=== PATIENT | male | born 1945 | race Caucasian/White ===

== ENCOUNTER 2021-01-06 12:55 | Emergency (ER) | payer MEDICARE, MEDICAID ==
[2021-01-06] MEDS ORDERED: Sodium Chloride 0.9% 10 ML Syringe FLUSH PRN (13:10)
--- NOTE | 2021-01-06 13:17 | EDM.PDOC ---
ED HPI GENERAL MEDICAL PROBLEM - General Chief Complaint: Lower Extremity Injury/Pain Stated Complaint: LT HIP INJURY SENT FROM RADIOLOGY Time Seen by Provider: 01/06/21 13:01 Source of Information: Reports: Patient, [facility] Records ([facility] notes/staff present in room) History Limitations: Reports: No Limitations - History of Present Illness INITIAL COMMENTS - FREE TEXT/NARRATIVE: Patient is a 75 year who presents to the ED today for left hip injury. The patient resides at [facility] in [place], [place]. He apparently was trying to self transfer on saturday evening from his wheelchair to his bed and fell to the ground. The staff present in the room states that he normally has mobility issues and they do have to utilize lifts to help move him. He has been complaining of left hip pain since then. The staff states that he has been well otherwise, no fevers/chills, cough/SOB, nausea/vomiting/diarrhea. The patient did have outpatient x-rays ordered that demonstrated a left proximal femur fracture, so he was sent to the ER for further management. Left Hip Pain Score (Numeric/FACES): 9 - Related Data Allergies Allergy/AdvReac Type Severity Reaction Status Date / Time No Known Allergies Allergy Verified 01/06/21 13:20 Home Meds: Home Meds Acetaminophen 650 mg PO Q4HR PRN 01/06/21 [History] Alendronate Sodium 70 mg PO WEEKLY 01/06/21 [History] Celecoxib [CeleBREX] 200 mg PO DAILY 01/06/21 [History] Cholecalciferol (Vitamin D3) [Vitamin D3] 2,000 unit PO DAILY 01/06/21 [History] Deutetrabenazine [Austedo] 9 mg PO DAILY 01/06/21 [History] Docusate Sodium [Colace] 100 mg PO DAILY 01/06/21 [History] Donepezil HCl [Aricept] 10 mg PO DAILY 01/06/21 [History] FLUoxetine [PROzac] 10 mg PO DAILY 01/06/21 [History] Folic Acid 1 mg PO DAILY 01/06/21 [History] Furosemide 30 mg PO DAILY 01/06/21 [History] Hydroxyurea [Hydrea] 500 mg PO ASDIRECTED 01/06/21 [History] Mirtazapine 15 mg PO BEDTIME 01/06/21 [History] Montelukast [Singulair] 10 mg PO DAILY 01/06/21 [History] Ondansetron [Zofran] 4 mg PO Q6H PRN 01/06/21 [History] Psyllium Husk [Metamucil] 1 scoop PO ASDIRECTED 01/06/21 [History] Tamsulosin HCl [Flomax] 0.8 mg PO DAILY 01/06/21 [History] Warfarin Sodium [Jantoven] 2.5 mg PO ASDIRECTED 01/06/21 [History] Warfarin Sodium [Jantoven] 5 mg PO ASDIRECTED 01/06/21 [History] amLODIPine [Norvasc] 10 mg PO DAILY 01/06/21 [History] atorvaSTATin [Lipitor] 40 mg PO DAILY 01/06/21 [History] lisinopriL [Lisinopril] 2.5 mg PO DAILY 01/06/21 [History] traZODone HCl [Trazodone HCl] 150 mg PO BEDTIME 01/06/21 [History] Review of Systems - Review of Systems Review Of Systems: Comprehensive ROS is negative, except as noted in HPI. ED EXAM, GENERAL - Physical Exam Exam: See Below Exam Limited By: No Limitations General Appearance: Alert, WD/WN, No Apparent Distress Throat/Mouth: Normal Inspection, Normal Lips, Normal Teeth, Normal Gums, Normal Oropharynx, Normal Voice, No Airway Compromise Respiratory/Chest: No Respiratory Distress, Lungs Clear, Normal Breath Sounds, No Accessory Muscle Use, Chest Non-Tender Cardiovascular: Normal Peripheral Pulses, Regular Rate, Rhythm, No Edema Peripheral Pulses: 2+: Radial (L), Radial (R) GI/Abdominal: Normal Bowel Sounds, Soft, Non-Tender, No Distention, No Mass Extremities: Normal Inspection, Normal Capillary Refill Neurological: Alert, Oriented, Normal Cognition, No Motor/Sensory Deficits Psychiatric: Normal Affect, Normal Mood Skin Exam: Warm, Dry, Intact, Normal Color, No Rash #1 Interpretation EKG Date: 01/06/21 Time: 13:53 Rhythm: NSR Rate (Beats/Min): 63 [place]: LAD-Left [place] Deviation (-94 ) P-Wave: Present QRS: RBBB ST-T: Normal QT: Normal Comparison: NA - No Prior EKG EKG Interpretation Comments: No obvious ischemia or acute ST changes noted, reviewed by myself and Dr. Chilel. He did appreciate diffuse early repolarization pattern. Course - Vital Signs Last Recorded V/S: Last Vital Signs Temp 97.8 F 01/06/21 13:01 Pulse 97 01/06/21 13:01 Resp 18 01/06/21 13:01 BP 155/129 H 01/06/21 13:01 Pulse Ox 97 01/06/21 13:01 - Orders/Labs/Meds Orders: Active Orders 24 hr Category Date Time Status EKG Documentation Completion [RC] STAT Care 01/06/21 13:09 Active Insert Daniels Catheter [Insert Urinary Catheter] [OM.PC] Care 01/06/21 16:30 Ordered Stat Peripheral IV Care [RC] . DIRECTED Care 01/06/21 13:10 Active Urinary Catheter Assessment [RC] ASDIRECTED Care 01/06/21 16:31 Active CULTURE URINE [RM] Routine Lab 01/06/21 16:56 Ordered Sodium Chloride 0.9% [Saline Flush] Med 01/06/21 13:10 Active 10 ml FLUSH ASDIRECTED PRN cefTRIAXone [Rocephin] 2 gm Med 01/06/21 16:56 Ordered Sodium Chloride 0.9% [Normal Saline] 100 ml IV ONETIME Peripheral IV Insertion Adult [OM.PC] Routine Oth 01/06/21 13:09 Ordered Medication Orders Ceftriaxone Sodium 2 gm/ (Sodium Chloride) 100 mls @ 200 mls/hr IV ONETIME ONE Stop: 01/06/21 17:25 Sodium Chloride (Saline Flush) 10 ml FLUSH ASDIRECTED PRN PRN Reason: Keep Vein Open Last Admin: 01/06/21 15:00 Dose: 10 ml Documented by: BRIJESH Labs: Laboratory Tests 01/06/21 01/06/21 01/06/21 Range/Units 13:30 13:30 13:30 WBC 18.11 H (4.23-9.07) K/mm3 RBC 5.03 (4.63-6.08) M/mm3 Hgb 13.6 L (13.7-17.5) gm/dl Hct 46.2 (40.1-51.0) % MCV 91.8 (79.0-92.2) fl MCH 27.0 (25.7-32.2) pg MCHC 29.4 L (32.2-35.5) g/dl RDW Std Deviation 67.2 H (35.1-43.9) fL Plt Count 133 L (163-337) K/mm3 MPV 10.3 (9.4-12.3) fl Neut % (Auto) 85.0 H (34.0-67.9) % Lymph % (Auto) 4.7 L (21.8-53.1) % [place] % (Auto) 6.4 (5.3-12.2) % Eos % (Auto) 3.3 (0.8-7.0) Baso % (Auto) 0.2 (0.1-1.2) % Neut # (Auto) 15.38 H (1.78-5.38) K/mm3 Lymph # (Auto) 0.86 L (1.32-3.57) K/mm3 [place] # (Auto) 1.16 H (0.30-0.82) K/mm3 Eos # (Auto) 0.60 H (0.04-0.54) K/mm3 Baso # (Auto) 0.03 (0.01-0.08) K/mm3 Manual Slide Review Abnormal smear PT 16.0 H (9.7-12.0) SECONDS INR 1.51 APTT 33.9 H (21.7-31.4) SECONDS Sodium 143 (136-145) mEq/L Potassium 4.9 (3.5-5.1) mEq/L Chloride 106 (98-107) mEq/L Carbon Dioxide 27 (21-32) mEq/L Anion Gap 14.9 (5-15) BUN 25 H (7-18) mg/dL Creatinine 1.2 (0.7-1.3) mg/dL Est Cr Clr Drug Dosing TNP Estimated GFR (MDRD) 59 (>60) mL/min BUN/Creatinine Ratio 20.8 H (14-18) Glucose 169 H (83-115) mg/dL Calcium 9.3 (8.5-10.1) mg/dL Total Bilirubin 0.7 (0.2-1.0) mg/dL AST 23 (15-37) U/L ALT 29 (16-63) U/L Alkaline Phosphatase 91 (46-116) U/L Total Protein 7.2 (6.4-8.2) g/dl Albumin 3.0 L (3.4-5.0) g/dl Globulin 4.2 gm/dL Albumin/Globulin Ratio 0.7 L (1-2) Urine Color (Yellow) Urine Appearance (Clear) Urine pH (5.0-8.0) Ur Specific [place] (1.005-1.030) Urine Protein (Negative) Urine Glucose (UA) (Negative) Urine Ketones (Negative) Urine Occult Blood (Negative) Urine Nitrite (Negative) Urine Bilirubin (Negative) Urine Urobilinogen (0.2-1.0) Ur Leukocyte Esterase (Negative) Urine RBC (0-5) /hpf Urine WBC (0-5) /hpf Urine WBC Clumps (NOT SEEN) /hpf Ur Squamous Epith Cells (0-5) /hpf Urine Bacteria (FEW) /hpf Urine Mucus (FEW) /hpf Influenza Type A RNA (NEGATIVE) Influenza Type B RNA (NEGATIVE) SARS-CoV-2 RNA (LETICIA) (NEGATIVE) 01/06/21 01/06/21 Range/Units 14:23 16:23 WBC (4.23-9.07) K/mm3 RBC (4.63-6.08) M/mm3 Hgb (13.7-17.5) gm/dl Hct (40.1-51.0) % MCV (79.0-92.2) fl MCH (25.7-32.2) pg MCHC (32.2-35.5) g/dl RDW Std Deviation (35.1-43.9) fL Plt Count (163-337) K/mm3 MPV (9.4-12.3) fl Neut % (Auto) (34.0-67.9) % Lymph % (Auto) (21.8-53.1) % [place] % (Auto) (5.3-12.2) % Eos % (Auto) (0.8-7.0) Baso % (Auto) (0.1-1.2) % Neut # (Auto) (1.78-5.38) K/mm3 Lymph # (Auto) (1.32-3.57) K/mm3 [place] # (Auto) (0.30-0.82) K/mm3 Eos # (Auto) (0.04-0.54) K/mm3 Baso # (Auto) (0.01-0.08) K/mm3 Manual Slide Review PT (9.7-12.0) SECONDS INR APTT (21.7-31.4) SECONDS Sodium (136-145) mEq/L Potassium (3.5-5.1) mEq/L Chloride (98-107) mEq/L Carbon Dioxide (21-32) mEq/L Anion Gap (5-15) BUN (7-18) mg/dL Creatinine (0.7-1.3) mg/dL Est Cr Clr Drug Dosing Estimated GFR (MDRD) (>60) mL/min BUN/Creatinine Ratio (14-18) Glucose (83-115) mg/dL Calcium (8.5-10.1) mg/dL Total Bilirubin (0.2-1.0) mg/dL AST (15-37) U/L ALT (16-63) U/L Alkaline Phosphatase (46-116) U/L Total Protein (6.4-8.2) g/dl Albumin (3.4-5.0) g/dl Globulin gm/dL Albumin/Globulin Ratio (1-2) Urine Color Yellow (Yellow) Urine Appearance Slt cloudy H (Clear) Urine pH 6.0 (5.0-8.0) Ur Specific [place] 1.020 (1.005-1.030) Urine Protein 1+ H (Negative) Urine Glucose (UA) Negative (Negative) Urine Ketones Negative (Negative) Urine Occult Blood 3+ H (Negative) Urine Nitrite Negative (Negative) Urine Bilirubin Negative (Negative) Urine Urobilinogen 0.2 (0.2-1.0) Ur Leukocyte Esterase 2+ H (Negative) Urine RBC 50-75 H (0-5) /hpf Urine WBC 50-75 H (0-5) /hpf Urine WBC Clumps Occasional (NOT SEEN) /hpf Ur Squamous Epith Cells 0-5 (0-5) /hpf Urine Bacteria Many H (FEW) /hpf Urine Mucus Few (FEW) /hpf Influenza Type A RNA Negative (NEGATIVE) Influenza Type B RNA Negative (NEGATIVE) SARS-CoV-2 RNA (LETICIA) Negative (NEGATIVE) Meds: Medications Generic Name Dose Route Start Last Admin Trade Name Freq PRN Reason Stop Dose Admin Ceftriaxone Sodium 2 gm/ 100 mls @ 200 mls/hr 01/06/21 16:56 Sodium Chloride IV 01/06/21 17:25 ONETIME ONE Sodium Chloride 10 ml 01/06/21 13:10 01/06/21 15:00 Saline Flush FLUSH 10 ml ASDIRECTED PRN Administration Keep Vein Open - Re-Assessments/Exams Free Text/Narrative Re-Assessment/Exam: 01/06/21 13:19 Patient presents to the ED for his left hip injury. He had an outpatient Femur x-ray taken and this does demonstrate a proximal femur fracture. Pre-op labs, EKG and CXR will be obtained to clear him for surgery. We do no have ortho environmental analyst, patient will need to be transferred to [place] for fixation. 01/06/21 13:59 Chest x-ray has been taken, and demonstrates no acute abnormalities. 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 Dr. Chilel did appreciate diffuse early repolarization pattern but no acute ST change or worrisome abnormalities. 01/06/21 14:34 Patient's labs have mostly resulted, COVID-19 swab is still pending however as it was not done with the initial labs. White count elevated at 18,000 with 85% neutrophils, chest x-ray is clear for any sort of pneumonia, in lieu of other symptoms I do suspect this is more of a stress response. Metabolic panel essentially unremarkable. 01/06/21 15:12 Dr. Stephanie Bahena in [facility] does tenatively accept the patient in transfer. 01/06/21 16:05 COVID-19 swab was negative, still awaiting urinalysis results. 01/06/21 16:58 The patient's urinalysis demonstrates 2+ leukocyte Estrace and slightly cloudy urine, we will go ahead and treat him for suspected urinary infection. 2 g Rocephin has been ordered, and urine culture will be sent. I did call and update JAMAR Bahena with this information. Departure - Departure Time of Disposition: 14:35 Disposition: DC/Tfer to Acute Hospital 02 Condition: Good Clinical Impression: Femur fracture, left Qualifiers: Encounter type: initial encounter Femur location: neck, unspecified portion Fracture type: closed Qualified Code(s): S72.002A - Fracture of unspecified part of neck of left femur, initial encounter for closed fracture UTI (urinary tract infection) Qualifiers: Urinary tract infection type: acute cystitis Hematuria presence: without hematuria Qualified Code(s): N30.00 - Acute cystitis without hematuria - Discharge Information Referrals: Baudilio Warren MD [Primary Care Provider] - Forms: ED Department Discharge Sepsis Event Note (ED) - Focused Exam Vital Signs: Vital Signs Temp Pulse Resp BP Pulse Ox 01/06/21 13:01 97.8 F 97 18 155/129 H 97 - My Orders Last 24 Hours: My Active Orders 01/06/21 13:09 EKG Documentation Completion [RC] STAT Peripheral IV Insertion Adult [OM.PC] Routine 01/06/21 13:10 Peripheral IV Care [RC] . DIRECTED Sodium Chloride 0.9% [Saline Flush] 10 ml FLUSH ASDIRECTED PRN 01/06/21 16:30 Insert Daniels Catheter [Insert Urinary Catheter] [OM.PC] Stat 01/06/21 16:31 Urinary Catheter Assessment [RC] ASDIRECTED 01/06/21 16:56 CULTURE URINE [RM] Routine cefTRIAXone [Rocephin] 2 gm Sodium Chloride 0.9% [Normal Saline] 100 ml IV ONETIME - Assessment/Plan Last 24 Hours: My Active Orders 01/06/21 13:09 EKG Documentation Completion [RC] STAT Peripheral IV Insertion Adult [OM.PC] Routine 01/06/21 13:10 Peripheral IV Care [RC] . DIRECTED Sodium Chloride 0.9% [Saline Flush] 10 ml FLUSH ASDIRECTED PRN 01/06/21 16:30 Insert Daniels Catheter [Insert Urinary Catheter] [OM.PC] Stat 01/06/21 16:31 Urinary Catheter Assessment [RC] ASDIRECTED 01/06/21 16:56 CULTURE URINE [RM] Routine cefTRIAXone [Rocephin] 2 gm Sodium Chloride 0.9% [Normal Saline] 100 ml IV ONETIME
--- NOTE | 2021-01-06 13:54 | CR ---
Chest: Portable view of the chest was obtained. Comparison: No previous studies available. Heart size is normal. Slight tortuosity of the thoracic aorta is seen. Lungs are clear with no acute parenchymal change. No gross bony abnormality is seen. Impression: 1. Nothing acute is identified on portable chest x-ray. Diagnostic code #1
[2021-01-06 15:06] LABS: CORONAVIRUS COVID-19 NAA NEGATIVE (NEGATIVE)
[2021-01-06] MEDS ORDERED: cefTRIAXone 2 GM in Sodium Chloride 0.9% 100 ML IV ONE (16:56)
== END 2021-01-06 17:58 ==
LOC: JD.ED 12:55
DX: S72.002A Fracture of unspecified part of neck of left femur, initial encounter for closed fracture (principal); N30.00 Acute cystitis without hematuria; D72.829 Elevated white blood cell count, unspecified; I45.10 Unspecified right bundle-branch block; Z20.822 Contact with and (suspected) exposure to COVID-19; W05.0XXA Fall from non-moving wheelchair, initial encounter; M25.552 Pain in left hip
CPT/HCPCS: 0240U; 36415; 51702; 71045; 73552; 80053; 81001; 85025; 85610; 85730; 87086; 87088; 87186; 93005; 96365; 99284; J0696; 93010; 99285

== ENCOUNTER 2021-03-16 15:51 | Inpatient (IN) | payer MEDICARE, MEDICAID ==
--- NOTE | 2021-03-16 17:05 | EDM.PDOC ---
ED HPI GENERAL MEDICAL PROBLEM - General Chief Complaint: Genitourinary Problem Stated Complaint: [facility] Time Seen by Provider: 03/16/21 17:05 Source of Information: Reports: Patient, Snf Records History Limitations: Reports: No Limitations - History of Present Illness INITIAL COMMENTS - FREE TEXT/NARRATIVE: 75-year-old male who resides in [facility] in [place], [place] presents to the ED after the nurses there had difficulty irrigating his Daniels catheter which is chronic. It was changed out 10 days ago and due to problems irrigating it recently it was changed out again last night and I believe once again. Dad troubles irrigating it this morning as well. There is seems to be a lot of blood on return of urine. It is unclear whether or not the patient does have bladder cancer. Patient does not know for sure. He is afebrile. He has not received any antibiotics for prophylaxis of catheter change which often causes bacteremia. The urine that is in the current drainage tube is urine mixed with occasional small quantities of blood. It is unclear whether or not this could have been caused by catheter insertion. Clinically the catheter appears to be in adequate position. Of note the patient has polycythemia rubra vera. He is on Coumadin chronically and also on Celebrex both of which could potentiate bleeding from the urinary bladder. Onset: Other (Having problems with Adniels catheter off and on for the last 10 days. He has a chronic indwelling Daniels catheter due to a neurogenic bladder) Duration: Day(s):, Getting Worse Location: Reports: Other (Chronic problems with Daniels catheter which is chronic.) Quality: Reports: Other (Patient denies any pain or discomfort.) Severity: Moderate Improves with: Reports: None (100 blood appreciated in the drainage tube at times.) Worsens with: Reports: None Context: Denies: Activity, Lifting, Sick Contact, Trauma, Other Associated Symptoms: Reports: No Other Symptoms Left Leg Pain Score (Numeric/FACES): 2 - Related Data Allergies Allergy/AdvReac Type Severity Reaction Status Date / Time No Known Allergies Allergy Verified 03/16/21 16:04 Home Meds: Home Meds Acetaminophen 650 mg PO Q4HR PRN 01/06/21 [History] Alendronate Sodium 70 mg PO WEEKLY 01/06/21 [History] Celecoxib [CeleBREX] 200 mg PO DAILY 01/06/21 [History] Cholecalciferol (Vitamin D3) [Vitamin D3] 2,000 unit PO DAILY 01/06/21 [History] Deutetrabenazine [Austedo] 9 mg PO DAILY 01/06/21 [History] Docusate Sodium [Colace] 100 mg PO DAILY 01/06/21 [History] Donepezil HCl [Aricept] 10 mg PO DAILY 01/06/21 [History] FLUoxetine [PROzac] 10 mg PO DAILY 01/06/21 [History] Folic Acid 1 mg PO DAILY 01/06/21 [History] Furosemide 30 mg PO DAILY 01/06/21 [History] Hydroxyurea [Hydrea] 500 mg PO ASDIRECTED 01/06/21 [History] Mirtazapine 15 mg PO BEDTIME 01/06/21 [History] Montelukast [Singulair] 10 mg PO DAILY 01/06/21 [History] Ondansetron [Zofran] 4 mg PO Q6H PRN 01/06/21 [History] Psyllium Husk [Metamucil] 1 scoop PO ASDIRECTED 01/06/21 [History] Tamsulosin HCl [Flomax] 0.8 mg PO DAILY 01/06/21 [History] Warfarin Sodium [Jantoven] 2.5 mg PO ASDIRECTED 01/06/21 [History] Warfarin Sodium [Jantoven] 5 mg PO ASDIRECTED 01/06/21 [History] amLODIPine [Norvasc] 10 mg PO DAILY 01/06/21 [History] atorvaSTATin [Lipitor] 40 mg PO DAILY 01/06/21 [History] lisinopriL [Lisinopril] 2.5 mg PO DAILY 01/06/21 [History] traZODone HCl [Trazodone HCl] 150 mg PO BEDTIME 01/06/21 [History] Past Medical History HEENT History: Reports: Impaired Vision Other HEENT History: chronic rhinitis Cardiovascular History: Reports: Afib, CAD, Hypertension Genitourinary History: Reports: BPH, Renal Calculus, UTI, Recurrent, Other (See Below) Other Genitourinary History: chronic indwelling catheter Musculoskeletal History: Reports: Osteoporosis, Other (See Below) Other Musculoskeletal History: L femur fx (not a candidate for surgery) Psychiatric History: Reports: Dementia, Depression, Schizophrenia Endocrine/Metabolic History: Reports: Diabetes, Type II, Hyperparathyroidism Hematologic History: Reports: Anticoagulation Therapy, Polycythemia - Past Surgical History Male Surgical History: Reports: Renal Calculus Social & Family History - Tobacco Use Tobacco Use Status *Q: Never Tobacco User Second Hand Smoke Exposure: No - Caffeine Use Caffeine Use: Reports: Coffee - Recreational Drug Use Recreational Drug Use: No - Living Situation & Occupation Living situation: Reports: Extended Care Facility (Currently a resident of [facility] of care in [place].) Occupation: Retired ED ROS GENERAL - Review of Systems Review Of Systems: See Below Reason Not Obtained: Unable to obtain due to underlying dementia. ED EXAM, RENAL/ - Physical Exam Exam: See Below Exam Limited By: Altered Mental Status (Patient answers to the best of his ability but is obviously impaired short-term memory.) General Appearance: Alert, No Apparent Distress, Other (Vital signs show temperature 36.2 and he does not feel warm to palpation. Heart rate is 71 and sinus. Respiratory to 17 with O2 sats of 94% on room air. BP 116/72.) Eye Exam: Bilateral Eye: Normal Inspection, PERRL (Mild blepharal pallor without any scleral icterus.) Throat/Mouth: Other Head: Atraumatic, Normocephalic (Thin tongue are dry and coated.), Other (Outward signs of any head or facial trauma.) Neck: Normal Inspection, Full Range of Motion (But a subtle lateral rotation of his). No: Carotid Bruit, Lymphadenopathy (L), Lymphadenopathy (R) ( neck but seems to be nonpainful.) Respiratory/Chest: No Respiratory Distress, Lungs Clear, Normal Breath Sounds, No Accessory Muscle Use Cardiovascular: Regular Rate, Rhythm, No Edema, No Gallop, No Murmur, No Rub GI/Abdominal: Normal Bowel Sounds, Soft, Non-Tender, No Organomegaly, No Mass, Pelvis Stable (Male) Exam: No Hernia, Circumcised, Other (The catheter is in the appropriate position when palpated in the perineum. There is no blood at the urethral meatus.) Back Exam: Normal Inspection, Full Range of Motion. No: CVA Tenderness (L), CVA Tenderness (R) Extremities: Normal Inspection, Normal Range of Motion, Non-Tender, No Pedal Edema Neurological: Alert, CN II-XII Intact, No Motor/Sensory Deficits. No: Oriented, Normal Cognition Psychiatric: Flat Affect Skin Exam: Warm, Dry, Intact, Normal Color, No Rash #1 Interpretation EKG Date: 03/16/21 Time: 19:14 Rhythm: NSR Rate (Beats/Min): 85 Sage: RAD-Right Sage Deviation (-96 degrees) P-Wave: Present (Borderline first-degree AV block) QRS: Other (Left anterior fascicular block pattern there are near Q waves in leads II, III and aVF. Consider possible old inferior wall myocardial infarction) ST-T: Other (Nonspecific T wave flattening in leads aVL and V2.) QT: Prolonged EKG Interpretation Comments: Abnormal ECG Course - Vital Signs Last Recorded V/S: Last Vital Signs Temp 36.2 C 03/16/21 15:56 Pulse 71 03/16/21 15:56 Resp 17 03/16/21 15:56 BP 116/72 03/16/21 15:56 Pulse Ox 90 L 03/16/21 15:56 - Orders/Labs/Meds Orders: Active Orders 24 hr Category Date Time Status Admission Status [Patient Status] [ADT] Routine ADT 03/16/21 20:13 Active EKG Documentation Completion [RC] STAT Care 03/16/21 19:04 Active Oxygen Therapy [RC] ASDIRECTED Care 03/16/21 19:05 Active CORONAVIRUS COVID-19 LETICIA [MOLEC] Stat Lab 03/16/21 19:36 Received CULTURE BLOOD [BC] Stat Lab 03/16/21 18:44 Ordered CULTURE BLOOD [BC] Stat Lab 03/16/21 19:05 Received CULTURE URINE [RM] Stat Lab 03/16/21 17:17 Received Dextrose 5%-0.9% NaCl [Dextrose 5%-Normal Saline] 1,000 Med 03/16/21 19:15 Active ml IV ASDIRECTED Blood Culture x2 Reflex Set [OM.PC] Stat Oth 03/16/21 18:44 Ordered Medication Orders Dextrose/Sodium Chloride (Dextrose 5%-Normal Saline) 1,000 mls @ 999 mls/hr IV ASDIRECTED DARRELL Last Admin: 03/16/21 19:53 Dose: 999 mls/hr Documented by: [id number] Labs: Laboratory Tests 03/16/21 03/16/21 03/16/21 Range/Units 17:17 17:34 17:34 WBC 28.45 H (4.23-9.07) K/mm3 RBC 5.15 (4.63-6.08) M/mm3 Hgb 14.6 (13.7-17.5) gm/dl Hct 47.1 (40.1-51.0) % MCV 91.5 (79.0-92.2) fl MCH 28.3 (25.7-32.2) pg MCHC 31.0 L (32.2-35.5) g/dl RDW Std Deviation 58.7 H (35.1-43.9) fL Plt Count 194 (163-337) K/mm3 MPV 10.3 (9.4-12.3) fl Neut % (Auto) 90.8 H (34.0-67.9) % Lymph % (Auto) 2.7 L (21.8-53.1) % [place] % (Auto) 4.0 L (5.3-12.2) % Eos % (Auto) 2.0 (0.8-7.0) Baso % (Auto) 0.1 (0.1-1.2) % Neut # (Auto) 25.82 H (1.78-5.38) K/mm3 Lymph # (Auto) 0.77 L (1.32-3.57) K/mm3 [place] # (Auto) 1.15 H (0.30-0.82) K/mm3 Eos # (Auto) 0.56 H (0.04-0.54) K/mm3 Baso # (Auto) 0.03 (0.01-0.08) K/mm3 Manual Slide Review Abnormal smear PT (9.7-12.0) SECONDS INR Sodium 139 (136-145) mEq/L Potassium 4.5 (3.5-5.1) mEq/L Chloride 105 (98-107) mEq/L Carbon Dioxide 24 (21-32) mEq/L Anion Gap 14.5 (5-15) BUN 32 H (7-18) mg/dL Creatinine 1.2 (0.7-1.3) mg/dL Est Cr Clr Drug Dosing 46.78 mL/min Estimated GFR (MDRD) 59 (>60) mL/min BUN/Creatinine Ratio 26.7 H (14-18) Glucose 148 H (83-115) mg/dL Lactic Acid (0.4-2.0) mmol/L Calcium 10.4 H (8.5-10.1) mg/dL Magnesium (1.8-2.4) mg/dl Total Bilirubin 0.6 (0.2-1.0) mg/dL AST 21 (15-37) U/L ALT 23 (16-63) U/L Alkaline Phosphatase 110 (46-116) U/L Troponin I (0.00-0.056) ng/mL C-Reactive Protein 6.5 H* (<1.0) mg/dL NT-Pro-B Natriuret Pep (0-125) pg/mL Total Protein 7.1 (6.4-8.2) g/dl Albumin 2.9 L (3.4-5.0) g/dl Globulin 4.2 gm/dL Albumin/Globulin Ratio 0.7 L (1-2) Urine Color Brown H (Yellow) Urine Appearance Cloudy H (Clear) Urine pH 6.0 (5.0-8.0) Ur Specific Quinn > or = 1.030 (1.005-1.030) Urine Protein 3+ H (Negative) Urine Glucose (UA) Negative (Negative) Urine Ketones Negative (Negative) Urine Occult Blood 3+ H (Negative) Urine Nitrite Positive H (Negative) Urine Bilirubin Negative (Negative) Urine Urobilinogen 0.2 (0.2-1.0) Ur Leukocyte Esterase 3+ H (Negative) Urine RBC 20-30 H (0-5) /hpf Urine WBC >100 H (0-5) /hpf Ur Squamous Epith Cells 0-5 (0-5) /hpf Urine Bacteria Moderate H (FEW) /hpf Urine Mucus Not seen (FEW) /hpf 03/16/21 03/16/21 03/16/21 Range/Units 17:34 17:34 17:59 WBC (4.23-9.07) K/mm3 RBC (4.63-6.08) M/mm3 Hgb (13.7-17.5) gm/dl Hct (40.1-51.0) % MCV (79.0-92.2) fl MCH (25.7-32.2) pg MCHC (32.2-35.5) g/dl RDW Std Deviation (35.1-43.9) fL Plt Count (163-337) K/mm3 MPV (9.4-12.3) fl Neut % (Auto) (34.0-67.9) % Lymph % (Auto) (21.8-53.1) % [place] % (Auto) (5.3-12.2) % Eos % (Auto) (0.8-7.0) Baso % (Auto) (0.1-1.2) % Neut # (Auto) (1.78-5.38) K/mm3 Lymph # (Auto) (1.32-3.57) K/mm3 [place] # (Auto) (0.30-0.82) K/mm3 Eos # (Auto) (0.04-0.54) K/mm3 Baso # (Auto) (0.01-0.08) K/mm3 Manual Slide Review PT 12.3 H (9.7-12.0) SECONDS INR 1.15 Sodium (136-145) mEq/L Potassium (3.5-5.1) mEq/L Chloride (98-107) mEq/L Carbon Dioxide (21-32) mEq/L Anion Gap (5-15) BUN (7-18) mg/dL Creatinine (0.7-1.3) mg/dL Est Cr Clr Drug Dosing mL/min Estimated GFR (MDRD) (>60) mL/min BUN/Creatinine Ratio (14-18) Glucose (83-115) mg/dL Lactic Acid (0.4-2.0) mmol/L Calcium (8.5-10.1) mg/dL Magnesium 2.1 (1.8-2.4) mg/dl Total Bilirubin (0.2-1.0) mg/dL AST (15-37) U/L ALT (16-63) U/L Alkaline Phosphatase (46-116) U/L Troponin I 0.034 (0.00-0.056) ng/mL C-Reactive Protein (<1.0) mg/dL NT-Pro-B Natriuret Pep 1855 H (0-125) pg/mL Total Protein (6.4-8.2) g/dl Albumin (3.4-5.0) g/dl Globulin gm/dL Albumin/Globulin Ratio (1-2) Urine Color (Yellow) Urine Appearance (Clear) Urine pH (5.0-8.0) Ur Specific Quinn (1.005-1.030) Urine Protein (Negative) Urine Glucose (UA) (Negative) Urine Ketones (Negative) Urine Occult Blood (Negative) Urine Nitrite (Negative) Urine Bilirubin (Negative) Urine Urobilinogen (0.2-1.0) Ur Leukocyte Esterase (Negative) Urine RBC (0-5) /hpf Urine WBC (0-5) /hpf Ur Squamous Epith Cells (0-5) /hpf Urine Bacteria (FEW) /hpf Urine Mucus (FEW) /hpf 03/16/21 Range/Units 19:05 WBC (4.23-9.07) K/mm3 RBC (4.63-6.08) M/mm3 Hgb (13.7-17.5) gm/dl Hct (40.1-51.0) % MCV (79.0-92.2) fl MCH (25.7-32.2) pg MCHC (32.2-35.5) g/dl RDW Std Deviation (35.1-43.9) fL Plt Count (163-337) K/mm3 MPV (9.4-12.3) fl Neut % (Auto) (34.0-67.9) % Lymph % (Auto) (21.8-53.1) % [place] % (Auto) (5.3-12.2) % Eos % (Auto) (0.8-7.0) Baso % (Auto) (0.1-1.2) % Neut # (Auto) (1.78-5.38) K/mm3 Lymph # (Auto) (1.32-3.57) K/mm3 [place] # (Auto) (0.30-0.82) K/mm3 Eos # (Auto) (0.04-0.54) K/mm3 Baso # (Auto) (0.01-0.08) K/mm3 Manual Slide Review PT (9.7-12.0) SECONDS INR Sodium (136-145) mEq/L Potassium (3.5-5.1) mEq/L Chloride (98-107) mEq/L Carbon Dioxide (21-32) mEq/L Anion Gap (5-15) BUN (7-18) mg/dL Creatinine (0.7-1.3) mg/dL Est Cr Clr Drug Dosing mL/min Estimated GFR (MDRD) (>60) mL/min BUN/Creatinine Ratio (14-18) Glucose (83-115) mg/dL Lactic Acid 1.0 (0.4-2.0) mmol/L Calcium (8.5-10.1) mg/dL Magnesium (1.8-2.4) mg/dl Total Bilirubin (0.2-1.0) mg/dL AST (15-37) U/L ALT (16-63) U/L Alkaline Phosphatase (46-116) U/L Troponin I (0.00-0.056) ng/mL C-Reactive Protein (<1.0) mg/dL NT-Pro-B Natriuret Pep (0-125) pg/mL Total Protein (6.4-8.2) g/dl Albumin (3.4-5.0) g/dl Globulin gm/dL Albumin/Globulin Ratio (1-2) Urine Color (Yellow) Urine Appearance (Clear) Urine pH (5.0-8.0) Ur Specific Quinn (1.005-1.030) Urine Protein (Negative) Urine Glucose (UA) (Negative) Urine Ketones (Negative) Urine Occult Blood (Negative) Urine Nitrite (Negative) Urine Bilirubin (Negative) Urine Urobilinogen (0.2-1.0) Ur Leukocyte Esterase (Negative) Urine RBC (0-5) /hpf Urine WBC (0-5) /hpf Ur Squamous Epith Cells (0-5) /hpf Urine Bacteria (FEW) /hpf Urine Mucus (FEW) /hpf Meds: Medications Generic Name Dose Route Start Last Admin Trade Name Freq PRN Reason Stop Dose Admin Dextrose/Sodium Chloride 1,000 mls @ 999 mls/hr 03/16/21 19:15 03/16/21 19:53 Dextrose 5%-Normal Saline IV 999 mls/hr ASDIRECTED DARRELL Administration Discontinued Medications Generic Name Dose Route Start Last Admin Trade Name Freq PRN Reason Stop Dose Admin Ceftriaxone Sodium 2 gm/ 100 mls @ 200 mls/hr 03/16/21 18:43 03/16/21 19:54 Sodium Chloride IV 03/16/21 19:12 200 mls/hr ONETIME ONE Administration Levofloxacin 500 mg 03/16/21 17:12 03/16/21 18:08 Levofloxacin 500 Mg Tab PO 03/16/21 17:13 500 mg ONETIME ONE Administration - Radiology Interpretation Free Text/Narrative:: 75-year-old male presents to the ED from snf in [place] for evaluation of Daniels catheter issues. The last Daniels catheter was apparently replaced on March 06. He has a chronic indwelling Daniels catheter for neurogenic bladder. There is difficulties irrigating the catheters as of late and safe seem to fill up with clots and mucoid debris. Catheter could not be irrigated last night but was successfully irrigated this morning. However there is a fair amount of blood upon return of the urine concerning to the nurses. He was sent down to the ED for further evaluation in this regard. Plan urine drainage is clear at points and also contains blood it points within the drainage tube. Urine will be obtained for analysis and culture. I am going to clamp the catheter so that he can have a look at his bladder with the ultrasound to make sure there are no abnormalities within the true bladder lining that would be concerning for carcinoma. Of note the patient has polycythemia rubra vera with a very high elevated platelet count. He is also on Coumadin and Celebrex both of which could cause him to have intermittent bleeding from the urinary bladder just to from irritation from the catheter. - Re-Assessments/Exams Free Text/Narrative Re-Assessment/Exam: 03/16/21 18:40 ultrasound of the patient's urinary bladder which was about half full I could identify Daniels catheter bulb well within the middle of the urinary bladder. There does appear to be some irregularity of the posterior wall of the bladder with some soft tissue thickening which could represent carcinoma of the urinary bladder. 03/16/21 18:42 White count is markedly elevated at 28.45 with a left shift of 91% neutrophils and 2.7% lymphocytes. M is a bit of a surprise since he did not have a fever. Hemoglobin is 14.6 with hematocrit of 47.1 platelet count 294,000. The slide reveals 1+ anisocytosis and 1+ poikilocytosis and 1+ ovalocytes. 2% bands cells are seen. PT is 12.3 with an INR of 1.15. Sodium 139 with a potassium of 4.5 and a chloride of 105. Bicarb is 24 with an anion gap of 14.5. BUN is 32 with a creatinine of 1.2 and a GFR 59. Glucose is elevated 148. Calcium is 10.4 BUN/creatinine ratio is elevated at 26.7 indicating he is volume depleted. Liver function is normal. C-reactive protein is 6.5 total protein is 7.1 albumin fraction low at 2.9. Plan he will now have a lactic acid drawn as well as blood cultures x2 before giving Rocephin 2 g IV. He will need to tentatively be admitted to the hospital as well. Patient will be started on IV fluids 03/16/21 19:08 urinalysis is turbid in color it reveals 3+ proteinuria 3+ occult blood positive nitrates 3+ leukocyte esterase 20-30 RBCs and greater than 100 white blood cells per high-power field with moderate bacteria appreciated. A urine culture has been ordered. 03/16/21 19:09 Case was discussed with on-call hospitalist Dr. Rodríguez Peacock and the plan will be to admit the patient to the [facility] surgery floor once labs are completed and he has had a liter of fluids. At present his heart rate is 78 with O2 sats of 97% on 2 L. Pressure is 124/78. 03/16/21 19:40 portable chest x-ray has been completed. Heart size appears to be within normal limits. Tortuous thoracic aorta is noted. Lungs are clear with no acute parenchymal changes. Bony structures show nothing acute. No signs of infection identified. 03/16/21 20:15 Lactic acid is 1.0. BNP is mildly elevated at 1855. Departure - Departure Time of Disposition: 20:17 Disposition: Admitted As Inpatient 67 Condition: Poor, Serious Clinical Impression: Leukocytosis Qualifiers: Leukocytosis type: bandemia Qualified Code(s): D72.825 - Bandemia Urinary tract infection associated with catheterization of urinary tract Qualifiers: Indwelling urinary catheter type: indwelling urethral catheter Encounter type: initial encounter Qualified Code(s): T83.511A - Infection and inflammatory reaction due to indwelling urethral catheter, initial encounter - Discharge Information *PRESCRIPTION DRUG MONITORING PROGRAM REVIEWED*: Not Applicable *COPY OF PRESCRIPTION DRUG MONITORING REPORT IN PATIENT HOANG: Not Applicable Referrals: Baudilio Warren MD [Primary Care Provider] - Forms: ED Department Discharge Sepsis Event Note (ED) - Evaluation Sepsis Screening Result: No Definite Risk - Focused Exam Vital Signs: Vital Signs Temp Pulse Resp BP Pulse Ox 03/16/21 15:56 36.2 C 71 17 116/72 90 L - My Orders Last 24 Hours: My Active Orders 03/16/21 17:17 CULTURE URINE [RM] Stat 03/16/21 18:44 CULTURE BLOOD [BC] Stat Blood Culture x2 Reflex Set [OM.PC] Stat 03/16/21 19:04 EKG Documentation Completion [RC] STAT 03/16/21 19:05 Oxygen Therapy [RC] ASDIRECTED CULTURE BLOOD [BC] Stat 03/16/21 19:15 Dextrose 5%-0.9% NaCl [Dextrose 5%-Normal Saline] 1,000 ml IV ASDIRECTED 03/16/21 19:36 CORONAVIRUS COVID-19 LETICIA [MOLEC] Stat 03/16/21 20:13 Admission Status [Patient Status] [ADT] Routine - Assessment/Plan Last 24 Hours: My Active Orders 03/16/21 17:17 CULTURE URINE [RM] Stat 03/16/21 18:44 CULTURE BLOOD [BC] Stat Blood Culture x2 Reflex Set [OM.PC] Stat 03/16/21 19:04 EKG Documentation Completion [RC] STAT 03/16/21 19:05 Oxygen Therapy [RC] ASDIRECTED CULTURE BLOOD [BC] Stat 03/16/21 19:15 Dextrose 5%-0.9% NaCl [Dextrose 5%-Normal Saline] 1,000 ml IV ASDIRECTED 03/16/21 19:36 CORONAVIRUS COVID-19 LETICIA [MOLEC] Stat 03/16/21 20:13 Admission Status [Patient Status] [ADT] Routine
[2021-03-16] MEDS ORDERED: Levofloxacin 500 MG Tab PO ONE (17:12)
[2021-03-16] MEDS ORDERED: cefTRIAXone 2 GM in Sodium Chloride 0.9% 100 ML IV ONE (18:43)
[2021-03-16] MEDS ORDERED: Dextrose 5%-0.9% NaCl 1,000 ML IV SCH (19:15)
--- NOTE | 2021-03-16 19:35 | CR ---
Chest: Portable view of the chest was obtained. Comparison: Prior chest x-ray of 01/06/21. Heart size appears within normal limits. Tortuous thoracic aorta is noted. Lungs are clear with no acute parenchymal change. Bony structures show nothing acute. Impression: 1. Nothing acute is identified on portable chest x-ray. Diagnostic code #1
[2021-03-17] MEDS ORDERED: HYDROmorphone 1 MG/ML Syringe IVPUSH PRN (00:39)
[2021-03-17] MEDS ORDERED: Ondansetron 4 MG/2 ML SDV IVPUSH PRN (00:43)
[2021-03-17] MEDS ORDERED: Acetaminophen 325 MG Tab PO PRN (09:17)
[2021-03-17] MEDS ORDERED: Haloperidol 5 MG Tab PO PRN (09:17)
[2021-03-17] MEDS ORDERED: Ondansetron 4 MG Tab.DIS PO PRN (09:17)
[2021-03-17] MEDS ORDERED: Morphine 10 MG/0.5 ML Oral Syringe PO PRN (09:48)
[2021-03-17] MEDS: Celecoxib 100 MG Cap PO SCH (10:09)
[2021-03-17] MEDS: Cholecalciferol (Vitamin D3) 25 MCG Tab PO SCH (10:09)
[2021-03-17] MEDS: FLUoxetine 10 MG Cap PO SCH (10:09)
[2021-03-17] MEDS: Docusate Sodium 100 MG Cap PO SCH (10:10)
[2021-03-17] MEDS: Psyllium Husk Powder Sugar Free 5.85 GM Packet PO SCH (10:10)
[2021-03-17] MEDS: amLODIPine 10 MG Tab PO SCH (10:10)
[2021-03-17] MEDS: Montelukast 10 MG Tab PO SCH (10:10)
[2021-03-17] MEDS: Hydroxyurea 500 MG Cap PO SCH (10:37)
[2021-03-17] MEDS: Enoxaparin 30 MG/0.3 ML Syringe SUBCUT SCH (10:37)
--- NOTE | 2021-03-17 12:02 | PCM.HP.2 ---
<Nirali Hutson M - Last Filed: 03/17/21 12:41> H&P History of Present Illness - General Date of Service: 03/17/21 Admit Problem/Dx: Admission Diagnosis/Problem Admission Diagnosis/Problem Bacteremia Source of Information: Patient, Detention Records History Limitations: Reports: Other (Slightly confused at times; of note he does have a history of schizophrenia) - History of Present Illness Initial Comments - Free Text/Narative: 75-year-old male who presented to the emergency department with issues with his Daniels catheter. Patient is a resident of [facility] in [place]. According to the emergency department history, the skilled nursing nurses had difficulty irrigating his Daniels catheter. Daniels catheter is chronic. The catheter was changed out about 10 days ago and then they reasonably began having problems irrigating it and it was changed out 2 nights ago. They also reported that they had troubles irrigating it yesterday morning. At the time of the patient's presentation to the emergency department there was a moderate amount of blood in the urine. ER physician was questioning bladder cancer so he did have an ultrasound at that time to evaluate. Per the ER physician's documentation there appeared to be some irregularity of the posterior wall of the bladder with some soft tissue thickening which could represent carcinoma of the bladder. The patient did not receive any antibiotics for prophylaxis of catheter change. The patient was chronically on Coumadin however per the skilled nursing records he was taken off of this on January 11 due to a nonoperative femur fracture that had occurred. Patient also takes Celebrex and he does have a history of polycythemia rubra vera. He saturations in the emergency department were 90% on room air however the patient does chronically wear oxygen at 1 to 2 L per nasal cannula at the skilled nursing. Labs in the emergency department reveal a white count of 28.45 with a left shift of 91% neutrophils and 2.7% lymphocytes with 2% bands. Hemoglobin is 14.6 with hematocrit of 47.1, platelet count is 294,000. Pro time is 12.3 with an INR of 1.15, sodium is 139, potassium 4.5, and a chloride of 105. Bicarb is 24 with an anion gap of 14.5, BUN is 32 with a creatinine of 1.2 and a GFR of 59. Glucose is 148. Calcium is 10.4 and BUN/creatinine ratio is elevated at 26.7. C- reactive protein is 6.5. Total protein is 7.1, albumin fraction low at 2.9. Lactic acid was 1.0. Blood cultures are pending Urinalysis revealed 3+ protein, 3+ blood, nitrite positive, 3+ leuk esterase, urine WBC greater than 100 with moderate bacteria. Urine cultures are pending The patient was given a liter of D5 NS in the emergency department. The patient was also given Levaquin 500 mg p.o. one-time dose and Rocephin 2 g IV in the emergency department. Left Leg Pain Score (Numeric/FACES): 8 - Related Data Allergies/Adverse Reactions: Allergies Allergy/AdvReac Type Severity Reaction Status Date / Time No Known Allergies Allergy Verified 03/16/21 16:04 Home Medications: Home Meds Acetaminophen 650 mg PO Q4HR PRN 01/06/21 [History] Celecoxib [CeleBREX] 200 mg PO DAILY 01/06/21 [History] Cholecalciferol (Vitamin D3) [Vitamin D3] 2,000 unit PO DAILY 01/06/21 [History] Docusate Sodium [Colace] 100 mg PO DAILY 01/06/21 [History] FLUoxetine [PROzac] 10 mg PO DAILY 01/06/21 [History] Hydroxyurea [Hydrea] 500 mg PO ASDIRECTED 01/06/21 [History] Ondansetron [Zofran] 4 mg PO Q6H PRN 01/06/21 [History] Psyllium Husk [Metamucil] 1 scoop PO ASDIRECTED 01/06/21 [History] amLODIPine [Norvasc] 10 mg PO DAILY 01/06/21 [History] atorvaSTATin [Lipitor] 40 mg PO DAILY 01/06/21 [History] Morphine [Morphine 20 MG/ML Soln] 0.25 ml PO Q3H PRN 03/16/21 [History] haloperidoL [Haldol] 5 mg PO Q8H PRN 03/16/21 [History] Menthol/Zinc Oxide [Calmoseptine] 1 applic TOP BID 03/17/21 [History] Montelukast [Singulair] 10 mg PO DAILY 03/17/21 [History] Past Medical History HEENT History: Reports: Impaired Vision Other HEENT History: chronic rhinitis Cardiovascular History: Reports: Afib, Blood Clots/VTE/DVT, CAD, Heart Failure, High Cholesterol, Hypertension, CO, Other (See Below) Other Cardiovascular History: intracardiac thrombosis; superintendent terminal anticoagulation Respiratory History: Reports: Other (See Below) Other Respiratory History: pleural effusions Gastrointestinal History: Reports: Chronic Constipation Genitourinary History: Reports: BPH, Chronic Renal Insuffiency, Neurogenic Bladder, Renal Calculus, Retention, Urinary, UTI, Recurrent, Other (See Below) Other Genitourinary History: chronic indwelling catheter Musculoskeletal History: Reports: Back Pain, Chronic, Fracture, Osteoporosis, Other (See Below) Other Musculoskeletal History: L femur fx (not a candidate for surgery) Neurological History: Reports: Other (See Below) Other Neuro History: vascular dementia with behavioral disturbance; dyskinesia Psychiatric History: Reports: Dementia, Depression, Psychosis, Schizophrenia, Other (See Below) Other Psychiatric History: insomnia Endocrine/Metabolic History: Reports: Diabetes, Type II, Hyperparathyroidism, Other (See Below) Other Endocrine/Metabolic History: hyperkalemia; hypercalcemia Hematologic History: Reports: Anticoagulation Therapy, Polycythemia - Past Surgical History Male Surgical History: Reports: Renal Calculus Social & Family History - Tobacco Use Tobacco Use Status *Q: Unknown Ever Used Tobacco Second Hand Smoke Exposure: No - Caffeine Use Caffeine Use: Reports: Coffee - Recreational Drug Use Recreational Drug Use: No - Living Situation & Occupation Living situation: Reports: Extended Care Facility (Currently a resident of [facility] in [place].) Occupation: Retired H&P Review of Systems - Review of Systems: Review Of Systems: See Below General: Reports: No Symptoms. Denies: Fever, Chills, Diaphoresis HEENT: Reports: No Symptoms Pulmonary: Reports: No Symptoms, Other (O2 saturations were 90% on room air in the emergency department however the patient does chronically wear oxygen at the skilled nursing at 1 to 2 L per nasal cannula) Cardiovascular: Reports: No Symptoms. Denies: Chest Pain, Palpitations, Dyspnea on Exertion, Edema, Lightheadedness Gastrointestinal: Reports: No Symptoms, Abdominal Pain (Suprapubic). Denies: Constipation, Diarrhea, Nausea, Vomiting Genitourinary: Reports: Hematuria, Other (Chronic Daniels catheter) Musculoskeletal: Reports: Other (Nonsurgical femur fracture of the left lower extremity) Skin: Reports: No Symptoms Psychiatric: Reports: Confusion, Other (History of schizophrenia) Neurological: Reports: No Symptoms Hematologic/Lymphatic: Reports: No Symptoms Immunologic: Reports: No Symptoms Exam - Exam Exam: See Below - Vital Signs Vital Signs: Last Vital Signs Temp 98.6 F 03/17/21 09:34 Pulse 79 03/17/21 09:34 Resp 16 03/17/21 09:34 BP 114/87 03/17/21 10:10 Pulse Ox 97 03/17/21 09:34 Weight: 63.957 kg - Exam Quality Assessment: Supplemental Oxygen (2 L per nasal cannula), Urinary Catheter (Chronic Daniels catheter), DVT Prophylaxis (Started on Lovenox 30 mg subcutaneous every 24 hours) General: Alert, Oriented, Cooperative HEENT: Hearing Intact. No: Mucosa Moist & [place] (Very dry mucous membranes) Neck: Supple, Trachea Midline Lungs: Clear to Auscultation, Normal Respiratory Effort Cardiovascular: Regular Rate, Regular Rhythm GI/Abdominal Exam: Normal Bowel Sounds, Soft, No Distention, Tender (Prepubic tenderness with palpation) (Male) Exam: Deferred Rectal (Males) Exam: Deferred Back Exam: Normal Inspection Extremities: Normal Inspection, Normal Range of Motion, No Pedal Edema, Normal Capillary Refill, Limited Range of Motion (Left lower extremity due to femur fracture) Peripheral Pulses: 2+: Radial (L), Radial (R), Dorsalis Pedis (L), Dorsalis Pedis (R) Skin: Warm, Dry, Intact Neuro Extensive - Mental Status: Alert, Oriented x3, Normal Cognition Psychiatric: Alert, Normal Affect, Normal Mood - Patient Data Lab Results Last 24 hrs: Laboratory Results - last 24 hr 03/16/21 03/16/21 03/16/21 Range/Units 17:17 17:34 17:34 WBC 28.45 H (4.23-9.07) K/mm3 RBC 5.15 (4.63-6.08) M/mm3 Hgb 14.6 (13.7-17.5) gm/dl Hct 47.1 (40.1-51.0) % MCV 91.5 (79.0-92.2) fl MCH 28.3 (25.7-32.2) pg MCHC 31.0 L (32.2-35.5) g/dl RDW Std Deviation 58.7 H (35.1-43.9) fL Plt Count 194 (163-337) K/mm3 MPV 10.3 (9.4-12.3) fl Neut % (Auto) 90.8 H (34.0-67.9) % Lymph % (Auto) 2.7 L (21.8-53.1) % [place] % (Auto) 4.0 L (5.3-12.2) % Eos % (Auto) 2.0 (0.8-7.0) Baso % (Auto) 0.1 (0.1-1.2) % Neut # (Auto) 25.82 H (1.78-5.38) K/mm3 Lymph # (Auto) 0.77 L (1.32-3.57) K/mm3 [place] # (Auto) 1.15 H (0.30-0.82) K/mm3 Eos # (Auto) 0.56 H (0.04-0.54) K/mm3 Baso # (Auto) 0.03 (0.01-0.08) K/mm3 Manual Slide Review Abnormal smear PT (9.7-12.0) SECONDS INR Sodium 139 (136-145) mEq/L Potassium 4.5 (3.5-5.1) mEq/L Chloride 105 (98-107) mEq/L Carbon Dioxide 24 (21-32) mEq/L Anion Gap 14.5 (5-15) BUN 32 H (7-18) mg/dL Creatinine 1.2 (0.7-1.3) mg/dL Est Cr Clr Drug Dosing 46.78 mL/min Estimated GFR (MDRD) 59 (>60) mL/min BUN/Creatinine Ratio 26.7 H (14-18) Glucose 148 H (83-115) mg/dL Lactic Acid (0.4-2.0) mmol/L Calcium 10.4 H (8.5-10.1) mg/dL Magnesium (1.8-2.4) mg/dl Total Bilirubin 0.6 (0.2-1.0) mg/dL AST 21 (15-37) U/L ALT 23 (16-63) U/L Alkaline Phosphatase 110 (46-116) U/L Troponin I (0.00-0.056) ng/mL C-Reactive Protein 6.5 H* (<1.0) mg/dL NT-Pro-B Natriuret Pep (0-125) pg/mL Total Protein 7.1 (6.4-8.2) g/dl Albumin 2.9 L (3.4-5.0) g/dl Globulin 4.2 gm/dL Albumin/Globulin Ratio 0.7 L (1-2) Urine Color Brown H (Yellow) Urine Appearance Cloudy H (Clear) Urine pH 6.0 (5.0-8.0) Ur Specific [place] > or = 1.030 (1.005-1.030) Urine Protein 3+ H (Negative) Urine Glucose (UA) Negative (Negative) Urine Ketones Negative (Negative) Urine Occult Blood 3+ H (Negative) Urine Nitrite Positive H (Negative) Urine Bilirubin Negative (Negative) Urine Urobilinogen 0.2 (0.2-1.0) Ur Leukocyte Esterase 3+ H (Negative) Urine RBC 20-30 H (0-5) /hpf Urine WBC >100 H (0-5) /hpf Ur Squamous Epith Cells 0-5 (0-5) /hpf Urine Bacteria Moderate H (FEW) /hpf Urine Mucus Not seen (FEW) /hpf SARS-CoV-2 RNA (LETICIA) (NEGATIVE) MRSA (PCR) 03/16/21 03/16/21 03/16/21 Range/Units 17:34 17:34 17:59 WBC (4.23-9.07) K/mm3 RBC (4.63-6.08) M/mm3 Hgb (13.7-17.5) gm/dl Hct (40.1-51.0) % MCV (79.0-92.2) fl MCH (25.7-32.2) pg MCHC (32.2-35.5) g/dl RDW Std Deviation (35.1-43.9) fL Plt Count (163-337) K/mm3 MPV (9.4-12.3) fl Neut % (Auto) (34.0-67.9) % Lymph % (Auto) (21.8-53.1) % [place] % (Auto) (5.3-12.2) % Eos % (Auto) (0.8-7.0) Baso % (Auto) (0.1-1.2) % Neut # (Auto) (1.78-5.38) K/mm3 Lymph # (Auto) (1.32-3.57) K/mm3 [place] # (Auto) (0.30-0.82) K/mm3 Eos # (Auto) (0.04-0.54) K/mm3 Baso # (Auto) (0.01-0.08) K/mm3 Manual Slide Review PT 12.3 H (9.7-12.0) SECONDS INR 1.15 Sodium (136-145) mEq/L Potassium (3.5-5.1) mEq/L Chloride (98-107) mEq/L Carbon Dioxide (21-32) mEq/L Anion Gap (5-15) BUN (7-18) mg/dL Creatinine (0.7-1.3) mg/dL Est Cr Clr Drug Dosing mL/min Estimated GFR (MDRD) (>60) mL/min BUN/Creatinine Ratio (14-18) Glucose (83-115) mg/dL Lactic Acid (0.4-2.0) mmol/L Calcium (8.5-10.1) mg/dL Magnesium 2.1 (1.8-2.4) mg/dl Total Bilirubin (0.2-1.0) mg/dL AST (15-37) U/L ALT (16-63) U/L Alkaline Phosphatase (46-116) U/L Troponin I 0.034 (0.00-0.056) ng/mL C-Reactive Protein (<1.0) mg/dL NT-Pro-B Natriuret Pep 1855 H (0-125) pg/mL Total Protein (6.4-8.2) g/dl Albumin (3.4-5.0) g/dl Globulin gm/dL Albumin/Globulin Ratio (1-2) Urine Color (Yellow) Urine Appearance (Clear) Urine pH (5.0-8.0) Ur Specific [place] (1.005-1.030) Urine Protein (Negative) Urine Glucose (UA) (Negative) Urine Ketones (Negative) Urine Occult Blood (Negative) Urine Nitrite (Negative) Urine Bilirubin (Negative) Urine Urobilinogen (0.2-1.0) Ur Leukocyte Esterase (Negative) Urine RBC (0-5) /hpf Urine WBC (0-5) /hpf Ur Squamous Epith Cells (0-5) /hpf Urine Bacteria (FEW) /hpf Urine Mucus (FEW) /hpf SARS-CoV-2 RNA (LETICIA) (NEGATIVE) MRSA (PCR) 03/16/21 03/16/21 03/17/21 Range/Units 19:05 19:36 03:08 WBC (4.23-9.07) K/mm3 RBC (4.63-6.08) M/mm3 Hgb (13.7-17.5) gm/dl Hct (40.1-51.0) % MCV (79.0-92.2) fl MCH (25.7-32.2) pg MCHC (32.2-35.5) g/dl RDW Std Deviation (35.1-43.9) fL Plt Count (163-337) K/mm3 MPV (9.4-12.3) fl Neut % (Auto) (34.0-67.9) % Lymph % (Auto) (21.8-53.1) % [place] % (Auto) (5.3-12.2) % Eos % (Auto) (0.8-7.0) Baso % (Auto) (0.1-1.2) % Neut # (Auto) (1.78-5.38) K/mm3 Lymph # (Auto) (1.32-3.57) K/mm3 [place] # (Auto) (0.30-0.82) K/mm3 Eos # (Auto) (0.04-0.54) K/mm3 Baso # (Auto) (0.01-0.08) K/mm3 Manual Slide Review PT (9.7-12.0) SECONDS INR Sodium (136-145) mEq/L Potassium (3.5-5.1) mEq/L Chloride (98-107) mEq/L Carbon Dioxide (21-32) mEq/L Anion Gap (5-15) BUN (7-18) mg/dL Creatinine (0.7-1.3) mg/dL Est Cr Clr Drug Dosing mL/min Estimated GFR (MDRD) (>60) mL/min BUN/Creatinine Ratio (14-18) Glucose (83-115) mg/dL Lactic Acid 1.0 (0.4-2.0) mmol/L Calcium (8.5-10.1) mg/dL Magnesium (1.8-2.4) mg/dl Total Bilirubin (0.2-1.0) mg/dL AST (15-37) U/L ALT (16-63) U/L Alkaline Phosphatase (46-116) U/L Troponin I (0.00-0.056) ng/mL C-Reactive Protein (<1.0) mg/dL NT-Pro-B Natriuret Pep (0-125) pg/mL Total Protein (6.4-8.2) g/dl Albumin (3.4-5.0) g/dl Globulin gm/dL Albumin/Globulin Ratio (1-2) Urine Color (Yellow) Urine Appearance (Clear) Urine pH (5.0-8.0) Ur Specific [place] (1.005-1.030) Urine Protein (Negative) Urine Glucose (UA) (Negative) Urine Ketones (Negative) Urine Occult Blood (Negative) Urine Nitrite (Negative) Urine Bilirubin (Negative) Urine Urobilinogen (0.2-1.0) Ur Leukocyte Esterase (Negative) Urine RBC (0-5) /hpf Urine WBC (0-5) /hpf Ur Squamous Epith Cells (0-5) /hpf Urine Bacteria (FEW) /hpf Urine Mucus (FEW) /hpf SARS-CoV-2 RNA (LETICIA) Negative (NEGATIVE) MRSA (PCR) Negative 03/17/21 03/17/21 Range/Units 09:31 09:31 WBC 21.26 H (4.23-9.07) K/mm3 RBC 4.74 (4.63-6.08) M/mm3 Hgb 13.4 L (13.7-17.5) gm/dl Hct 43.8 (40.1-51.0) % MCV 92.4 H (79.0-92.2) fl MCH 28.3 (25.7-32.2) pg MCHC 30.6 L (32.2-35.5) g/dl RDW Std Deviation 58.4 H (35.1-43.9) fL Plt Count 207 (163-337) K/mm3 MPV 9.4 (9.4-12.3) fl Neut % (Auto) 89.0 H (34.0-67.9) % Lymph % (Auto) 3.7 L (21.8-53.1) % [place] % (Auto) 4.3 L (5.3-12.2) % Eos % (Auto) 2.6 (0.8-7.0) Baso % (Auto) 0.1 (0.1-1.2) % Neut # (Auto) 18.90 H (1.78-5.38) K/mm3 Lymph # (Auto) 0.79 L (1.32-3.57) K/mm3 [place] # (Auto) 0.92 H (0.30-0.82) K/mm3 Eos # (Auto) 0.56 H (0.04-0.54) K/mm3 Baso # (Auto) 0.02 (0.01-0.08) K/mm3 Manual Slide Review Abnormal smear PT (9.7-12.0) SECONDS INR Sodium 141 (136-145) mEq/L Potassium 3.9 (3.5-5.1) mEq/L Chloride 107 (98-107) mEq/L Carbon Dioxide 24 (21-32) mEq/L Anion Gap 13.9 (5-15) BUN 24 H (7-18) mg/dL Creatinine 1.0 (0.7-1.3) mg/dL Est Cr Clr Drug Dosing 58.63 mL/min Estimated GFR (MDRD) > 60 (>60) mL/min BUN/Creatinine Ratio 24.0 H (14-18) Glucose 105 (83-115) mg/dL Lactic Acid (0.4-2.0) mmol/L Calcium 9.1 (8.5-10.1) mg/dL Magnesium 1.8 (1.8-2.4) mg/dl Total Bilirubin 0.5 (0.2-1.0) mg/dL AST 17 (15-37) U/L ALT 22 (16-63) U/L Alkaline Phosphatase 95 (46-116) U/L Troponin I (0.00-0.056) ng/mL C-Reactive Protein 5.9 H* (<1.0) mg/dL NT-Pro-B Natriuret Pep (0-125) pg/mL Total Protein 6.5 (6.4-8.2) g/dl Albumin 2.5 L (3.4-5.0) g/dl Globulin 4.0 gm/dL Albumin/Globulin Ratio 0.6 L (1-2) Urine Color (Yellow) Urine Appearance (Clear) Urine pH (5.0-8.0) Ur Specific [place] (1.005-1.030) Urine Protein (Negative) Urine Glucose (UA) (Negative) Urine Ketones (Negative) Urine Occult Blood (Negative) Urine Nitrite (Negative) Urine Bilirubin (Negative) Urine Urobilinogen (0.2-1.0) Ur Leukocyte Esterase (Negative) Urine RBC (0-5) /hpf Urine WBC (0-5) /hpf Ur Squamous Epith Cells (0-5) /hpf Urine Bacteria (FEW) /hpf Urine Mucus (FEW) /hpf SARS-CoV-2 RNA (LETICIA) (NEGATIVE) MRSA (PCR) Result Diagrams: 03/17/21 09:31 03/17/21 09:31 Yan Results Last 24 hrs: Microbiology 03/16/21 17:17 Urine Culture - Preliminary Urine, Daniels Cath ([place]) Gram Negative Rods 03/16/21 19:56 Anaerobic Blood Culture - Final Blood - Venous - Lab Draw 03/16/21 19:05 Anaerobic Blood Culture - Final Blood - Venous Sepsis Event Note - Evaluation Sepsis Screening Result: No Definite Risk - Focused Exam Vital Signs: Vital Signs Temp Pulse Resp BP Pulse Ox Pulse Ox 03/17/21 10:10 114/87 03/17/21 09:34 98.6 F 79 16 114/87 97 03/17/21 09:28 96 03/16/21 23:58 98.8 F 75 14 112/77 95 - Problem List (1) Leukocytosis SNOMED Code(s): 405221324, 262121384 ICD Code: D72.829 - ELEVATED WHITE BLOOD CELL COUNT, UNSPECIFIED Status: Acute Priority: High Current Visit: Yes Qualifiers: Leukocytosis type: bandemia Qualified Code(s): D72.825 - Bandemia (2) Urinary tract infection associated with catheterization of urinary tract SNOMED Code(s): 221975768 ICD Code: T83.511A - I/I REACT D/T INDWELLING URETHRAL CATHETER, INIT; N39.0 - URINARY TRACT INFECTION, SITE NOT SPECIFIED Status: Acute Priority: High Current Visit: Yes Qualifiers: Indwelling urinary catheter type: indwelling urethral catheter Encounter type: initial encounter Qualified Code(s): T83.511A - Infection and inflammatory reaction due to indwelling urethral catheter, initial encounter; N39.0 - Urinary tract infection, site not specified (3) Femur fracture, left SNOMED Code(s): 13825599, 21779644227347032 ICD Code: S72.92XA - UNSP FRACTURE OF LEFT FEMUR, INIT ENCNTR FOR CLOSED FRACTURE Status: Chronic Priority: Low Current Visit: Yes Qualifiers: Encounter type: initial encounter Femur location: neck, unspecified portion Fracture type: closed Qualified Code(s): S72.002A - Fracture of unspecified part of neck of left femur, initial encounter for closed fracture Problem List Initiated/Reviewed/Updated: Yes Orders Last 24hrs: Active Orders 24 hr Category Date Time Status Admission Status [Patient Status] [ADT] Routine ADT 03/16/21 20:13 Active Bedrest [RC] , Care 03/17/21 00:34 Active Intake and Output [RC] , Care 03/17/21 00:47 Active Oxygen Therapy [RC] , Care 03/17/21 00:41 Active Consistent Carbohydrate Diet [DIET] Diet 03/17/21 Breakfast Active Mechanical Soft Diet [DIET] Diet 03/17/21 Breakfast Active C-REACTIVE PROTEIN [CHEM] AM Lab 03/18/21 05:11 Ordered CBC WITH AUTO DIFF [HEME] AM Lab 03/18/21 05:11 Ordered COMPREHENSIVE METABOLIC PN,CMP [CHEM] AM Lab 03/18/21 05:11 Ordered CULTURE BLOOD [BC] Stat Lab 03/16/21 19:05 Results CULTURE BLOOD [BC] Stat Lab 03/16/21 19:56 Results CULTURE URINE [RM] Stat Lab 03/16/21 17:17 Results MAGNESIUM [CHEM] AM Lab 03/18/21 05:11 Ordered Acetaminophen [TylenoL] Med 03/17/21 09:17 Active 650 mg PO Q4H PRN Celecoxib [CeleBREX] Med 03/17/21 10:00 Active 200 mg PO DAILY Cholecalciferol (Vitamin D3) [Vitamin D3] Med 03/17/21 10:00 Active 50 mcg PO DAILY Dextrose 5%-0.9% NaCl [Dextrose 5%-Normal Saline] 1,000 Med 03/16/21 19:15 Active ml IV ASDIRECTED Docusate Sodium [Colace] Med 03/17/21 10:00 Active 100 mg PO DAILY Enoxaparin [Lovenox] Med 03/17/21 11:00 Active 30 mg SUBCUT Q24H FLUoxetine [PROzac] Med 03/17/21 10:00 Active 10 mg PO DAILY HYDROmorphone [Dilaudid] Med 03/17/21 00:39 Active 1 mg IVPUSH Q2H PRN Hydroxyurea [Hydrea] Med 03/17/21 10:00 Active 500 mg PO MoTuWeThFr Montelukast [Singulair] Med 03/17/21 10:00 Active 10 mg PO DAILY Morphine [Morphine 10 MG/0.5 ML Oral Syringe] Med 03/17/21 09:48 Active 5 mg PO Q3H PRN Ondansetron [Zofran ODT] Med 03/17/21 09:17 Active 4 mg PO Q6H PRN Ondansetron [Zofran] Med 03/17/21 00:43 Active 4 mg IVPUSH Q6H PRN Psyllium Husk/Aspartame [Metamucil Sugar Free] Med 03/17/21 10:00 Active 1 pkt PO DAILY Sodium Chloride 0.9% [Normal Saline] 1,000 ml Med 03/17/21 08:00 Active IV ASDIRECTED amLODIPine [Norvasc] Med 03/17/21 10:00 Active 10 mg PO DAILY atorvaSTATin [Lipitor] Med 03/17/21 21:00 Active 40 mg PO BEDTIME cefTRIAXone [Rocephin] 1 gm Med 03/17/21 20:00 Active Sodium Chloride 0.9% [Normal Saline] 100 ml IV Q24H haloperidoL [Haldol] Med 03/17/21 09:17 Active 5 mg PO Q8H PRN Blood Culture x2 Reflex Set [OM.PC] Stat Oth 03/16/21 18:44 Ordered Code Status [Resuscitation Status] Routine Resus Stat 03/17/21 00:31 Ordered Medication Orders Acetaminophen (Acetaminophen 325 Mg Tab) 650 mg PO Q4H PRN PRN Reason: Pain Amlodipine Besylate (Amlodipine 10 Mg Tab) 10 mg PO DAILY [facility] Last Admin: 03/17/21 10:10 Dose: 10 mg Documented by: DEMAR Atorvastatin Calcium (Atorvastatin 40 Mg Tab) 40 mg PO BEDTIME DARRELL Celecoxib (Celecoxib 100 Mg Cap) 200 mg PO DAILY [facility] Last Admin: 03/17/21 10:09 Dose: 200 mg Documented by: DEMAR Cholecalciferol (Cholecalciferol (Vitamin D3) 25 Mcg Tab) 50 mcg PO DAILY [facility] Last Admin: 03/17/21 10:09 Dose: 50 mcg Documented by: DEMAR Docusate Sodium (Docusate Sodium 100 Mg Cap) 100 mg PO DAILY [facility] Last Admin: 03/17/21 10:10 Dose: 100 mg Documented by: DEMAR Enoxaparin Sodium (Enoxaparin 30 Mg/0.3 Ml Syringe) 30 mg SUBCUT Q24H [facility] Last Admin: 03/17/21 10:37 Dose: 30 mg Documented by: DEMAR Fluoxetine HCl (Fluoxetine 10 Mg Cap) 10 mg PO DAILY [facility] Last Admin: 03/17/21 10:09 Dose: 10 mg Documented by: DEMAR Haloperidol (Haloperidol 5 Mg Tab) 5 mg PO Q8H PRN PRN Reason: delirium or terminal restlessn Hydromorphone HCl (Hydromorphone 1 Mg/Ml Syringe) 1 mg IVPUSH Q2H PRN PRN Reason: Pain Hydroxyurea (Hydroxyurea 500 Mg Cap) 500 mg PO MoTuWeThFr [facility] Last Admin: 03/17/21 10:37 Dose: 500 mg Documented by: DEMAR Dextrose/Sodium Chloride (Dextrose 5%-Normal Saline) 1,000 mls @ 999 mls/hr IV ASDIRECTED [facility] Last Admin: 03/16/21 19:53 Dose: 999 mls/hr Documented by: SUNSHINE Ceftriaxone Sodium 1 gm/ (Sodium Chloride) 100 mls @ 200 mls/hr IV Q24H [facility] Sodium Chloride (Normal Saline) 1,000 mls @ 100 mls/hr IV ASDIRECTED [facility] Montelukast Sodium (Montelukast 10 Mg Tab) 10 mg PO DAILY [facility] Last Admin: 03/17/21 10:10 Dose: 10 mg Documented by: DEMAR Morphine Sulfate (Morphine 10 Mg/0.5 Ml Oral Syringe) 5 mg PO Q3H PRN PRN Reason: Pain Ondansetron HCl (Ondansetron 4 Mg/2 Ml Sdv) 4 mg IVPUSH Q6H PRN PRN Reason: Nausea/Vomiting Ondansetron HCl (Ondansetron 4 Mg Tab.Dis) 4 mg PO Q6H PRN PRN Reason: Nausea Psyllium Husk (Psyllium Husk Powder Sugar Free 5.85 Gm Packet) 1 pkt PO DAILY [facility] Last Admin: 03/17/21 10:10 Dose: 1 pkt Documented by: DEMAR Assessment/Plan Comment:: Assessment/Plan Comment:: Assessment - day of admission - 03/17/21 * 75-year-old male presents with difficulty irrigating chronic Daniels catheter and hematuria and urine. * Was brought to the ER yesterday as the skilled nursing had problems irrigating the Daniels catheter despite being it changed out twice within the previous 10 days * Has been afebrile * History of schitzophrenia and closed femur fracture that is nonoperable. * Labs: WBC 28.45->21.26 HGB 14.6->13.4 HCT 47.1->43.8 PLT 194->207 Neutrophil % 90.8->89.0 Na 139->141 K 4.5->3.9 Anion Gap->14.5->13.9 BUN 32->24 Cre 1.2->1.0 GFR 59-> >60 BUN/Cre ratio 26.7->24.0 Gluc 148->105 Lactic Acid 1.0 Calcium 10.4->9.1 Magnesium 2.1->1.8 CRP 6.5->5.9 ProBNP 1855 UC preliminary report shows gram negative rods * Per the skilled nursing report, swallow evaluation at the skilled nursing recommends nectar thickened liquids but he refuses this and has signed paperwork stating that he will take responsibility should he aspirate. I have spoken to the patient regarding this and he would like to continue with thin liquids. * Started on Rocephin IV every 24 hours * Urine cultures and blood cultures are pending * Subsequently admitted to the medical floor on telemetry for management of urinary tract infection. PLAN: Leukocytosis; Urinary tract infection associated with catheterization of urinary tract * Normal saline at 100 mL/h as the patient is dehydrated per the BUN/creatinine ratio and physical assessment * Rocephin IV every 24 hours * Urine cultures and blood cultures pending * Repeat labs in the a.m. * Monitor intake and output Femur fracture, left * Coumadin was stopped on January 11 per the skilled nursing report * Lovenox 30 mg subcutaneous daily for DVT prophylaxis and patient's history of hematuria * PT OT to evaluate and treat * Continue patient's Celebrex from the skilled nursing however monitor for hematuria as this can cause increase in bleeding however this medication has been managing his pain appropriately PCP: Dr. Warren Code Status: DNR/DNI DVT prophylaxis: Lovenox Disposition: Patient admitted to the medical floor on telemetry for management UTI. Anticipated LOS 4-5 days. Will plan on return to [facility] at the time of discharge. - Mortality Measure Prognosis:: Good <Rodríguez Peacock - Last Filed: 03/17/21 14:10> H&P History of Present Illness - General Admit Problem/Dx: Admission Diagnosis/Problem Admission Diagnosis/Problem Bacteremia Exam - Vital Signs Vital Signs: Last Vital Signs Temp 37.0 C 03/17/21 09:34 Pulse 79 03/17/21 09:34 Resp 16 03/17/21 09:34 BP 114/87 03/17/21 10:10 Pulse Ox 97 03/17/21 09:34 - Patient Data Lab Results Last 24 hrs: Laboratory Results - last 24 hr 03/16/21 03/16/21 03/16/21 Range/Units 17:17 17:34 17:34 WBC 28.45 H (4.23-9.07) K/mm3 RBC 5.15 (4.63-6.08) M/mm3 Hgb 14.6 (13.7-17.5) gm/dl Hct 47.1 (40.1-51.0) % MCV 91.5 (79.0-92.2) fl MCH 28.3 (25.7-32.2) pg MCHC 31.0 L (32.2-35.5) g/dl RDW Std Deviation 58.7 H (35.1-43.9) fL Plt Count 194 (163-337) K/mm3 MPV 10.3 (9.4-12.3) fl Neut % (Auto) 90.8 H (34.0-67.9) % Lymph % (Auto) 2.7 L (21.8-53.1) % [place] % (Auto) 4.0 L (5.3-12.2) % Eos % (Auto) 2.0 (0.8-7.0) Baso % (Auto) 0.1 (0.1-1.2) % Neut # (Auto) 25.82 H (1.78-5.38) K/mm3 Lymph # (Auto) 0.77 L (1.32-3.57) K/mm3 [place] # (Auto) 1.15 H (0.30-0.82) K/mm3 Eos # (Auto) 0.56 H (0.04-0.54) K/mm3 Baso # (Auto) 0.03 (0.01-0.08) K/mm3 Manual Slide Review Abnormal smear PT (9.7-12.0) SECONDS INR Sodium 139 (136-145) mEq/L Potassium 4.5 (3.5-5.1) mEq/L Chloride 105 (98-107) mEq/L Carbon Dioxide 24 (21-32) mEq/L Anion Gap 14.5 (5-15) BUN 32 H (7-18) mg/dL Creatinine 1.2 (0.7-1.3) mg/dL Est Cr Clr Drug Dosing 46.78 mL/min Estimated GFR (MDRD) 59 (>60) mL/min BUN/Creatinine Ratio 26.7 H (14-18) Glucose 148 H (83-115) mg/dL Lactic Acid (0.4-2.0) mmol/L Calcium 10.4 H (8.5-10.1) mg/dL Magnesium (1.8-2.4) mg/dl Total Bilirubin 0.6 (0.2-1.0) mg/dL AST 21 (15-37) U/L ALT 23 (16-63) U/L Alkaline Phosphatase 110 (46-116) U/L Troponin I (0.00-0.056) ng/mL C-Reactive Protein 6.5 H* (<1.0) mg/dL NT-Pro-B Natriuret Pep (0-125) pg/mL Total Protein 7.1 (6.4-8.2) g/dl Albumin 2.9 L (3.4-5.0) g/dl Globulin 4.2 gm/dL Albumin/Globulin Ratio 0.7 L (1-2) Urine Color Brown H (Yellow) Urine Appearance Cloudy H (Clear) Urine pH 6.0 (5.0-8.0) Ur Specific [place] > or = 1.030 (1.005-1.030) Urine Protein 3+ H (Negative) Urine Glucose (UA) Negative (Negative) Urine Ketones Negative (Negative) Urine Occult Blood 3+ H (Negative) Urine Nitrite Positive H (Negative) Urine Bilirubin Negative (Negative) Urine Urobilinogen 0.2 (0.2-1.0) Ur Leukocyte Esterase 3+ H (Negative) Urine RBC 20-30 H (0-5) /hpf Urine WBC >100 H (0-5) /hpf Ur Squamous Epith Cells 0-5 (0-5) /hpf Urine Bacteria Moderate H (FEW) /hpf Urine Mucus Not seen (FEW) /hpf SARS-CoV-2 RNA (LETICIA) (NEGATIVE) MRSA (PCR) 03/16/21 03/16/21 03/16/21 Range/Units 17:34 17:34 17:59 WBC (4.23-9.07) K/mm3 RBC (4.63-6.08) M/mm3 Hgb (13.7-17.5) gm/dl Hct (40.1-51.0) % MCV (79.0-92.2) fl MCH (25.7-32.2) pg MCHC (32.2-35.5) g/dl RDW Std Deviation (35.1-43.9) fL Plt Count (163-337) K/mm3 MPV (9.4-12.3) fl Neut % (Auto) (34.0-67.9) % Lymph % (Auto) (21.8-53.1) % [place] % (Auto) (5.3-12.2) % Eos % (Auto) (0.8-7.0) Baso % (Auto) (0.1-1.2) % Neut # (Auto) (1.78-5.38) K/mm3 Lymph # (Auto) (1.32-3.57) K/mm3 [place] # (Auto) (0.30-0.82) K/mm3 Eos # (Auto) (0.04-0.54) K/mm3 Baso # (Auto) (0.01-0.08) K/mm3 Manual Slide Review PT 12.3 H (9.7-12.0) SECONDS INR 1.15 Sodium (136-145) mEq/L Potassium (3.5-5.1) mEq/L Chloride (98-107) mEq/L Carbon Dioxide (21-32) mEq/L Anion Gap (5-15) BUN (7-18) mg/dL Creatinine (0.7-1.3) mg/dL Est Cr Clr Drug Dosing mL/min Estimated GFR (MDRD) (>60) mL/min BUN/Creatinine Ratio (14-18) Glucose (83-115) mg/dL Lactic Acid (0.4-2.0) mmol/L Calcium (8.5-10.1) mg/dL Magnesium 2.1 (1.8-2.4) mg/dl Total Bilirubin (0.2-1.0) mg/dL AST (15-37) U/L ALT (16-63) U/L Alkaline Phosphatase (46-116) U/L Troponin I 0.034 (0.00-0.056) ng/mL C-Reactive Protein (<1.0) mg/dL NT-Pro-B Natriuret Pep 1855 H (0-125) pg/mL Total Protein (6.4-8.2) g/dl Albumin (3.4-5.0) g/dl Globulin gm/dL Albumin/Globulin Ratio (1-2) Urine Color (Yellow) Urine Appearance (Clear) Urine pH (5.0-8.0) Ur Specific [place] (1.005-1.030) Urine Protein (Negative) Urine Glucose (UA) (Negative) Urine Ketones (Negative) Urine Occult Blood (Negative) Urine Nitrite (Negative) Urine Bilirubin (Negative) Urine Urobilinogen (0.2-1.0) Ur Leukocyte Esterase (Negative) Urine RBC (0-5) /hpf Urine WBC (0-5) /hpf Ur Squamous Epith Cells (0-5) /hpf Urine Bacteria (FEW) /hpf Urine Mucus (FEW) /hpf SARS-CoV-2 RNA (LETICIA) (NEGATIVE) MRSA (PCR) 03/16/21 03/16/21 03/17/21 Range/Units 19:05 19:36 03:08 WBC (4.23-9.07) K/mm3 RBC (4.63-6.08) M/mm3 Hgb (13.7-17.5) gm/dl Hct (40.1-51.0) % MCV (79.0-92.2) fl MCH (25.7-32.2) pg MCHC (32.2-35.5) g/dl RDW Std Deviation (35.1-43.9) fL Plt Count (163-337) K/mm3 MPV (9.4-12.3) fl Neut % (Auto) (34.0-67.9) % Lymph % (Auto) (21.8-53.1) % [place] % (Auto) (5.3-12.2) % Eos % (Auto) (0.8-7.0) Baso % (Auto) (0.1-1.2) % Neut # (Auto) (1.78-5.38) K/mm3 Lymph # (Auto) (1.32-3.57) K/mm3 [place] # (Auto) (0.30-0.82) K/mm3 Eos # (Auto) (0.04-0.54) K/mm3 Baso # (Auto) (0.01-0.08) K/mm3 Manual Slide Review PT (9.7-12.0) SECONDS INR Sodium (136-145) mEq/L Potassium (3.5-5.1) mEq/L Chloride (98-107) mEq/L Carbon Dioxide (21-32) mEq/L Anion Gap (5-15) BUN (7-18) mg/dL Creatinine (0.7-1.3) mg/dL Est Cr Clr Drug Dosing mL/min Estimated GFR (MDRD) (>60) mL/min BUN/Creatinine Ratio (14-18) Glucose (83-115) mg/dL Lactic Acid 1.0 (0.4-2.0) mmol/L Calcium (8.5-10.1) mg/dL Magnesium (1.8-2.4) mg/dl Total Bilirubin (0.2-1.0) mg/dL AST (15-37) U/L ALT (16-63) U/L Alkaline Phosphatase (46-116) U/L Troponin I (0.00-0.056) ng/mL C-Reactive Protein (<1.0) mg/dL NT-Pro-B Natriuret Pep (0-125) pg/mL Total Protein (6.4-8.2) g/dl Albumin (3.4-5.0) g/dl Globulin gm/dL Albumin/Globulin Ratio (1-2) Urine Color (Yellow) Urine Appearance (Clear) Urine pH (5.0-8.0) Ur Specific [place] (1.005-1.030) Urine Protein (Negative) Urine Glucose (UA) (Negative) Urine Ketones (Negative) Urine Occult Blood (Negative) Urine Nitrite (Negative) Urine Bilirubin (Negative) Urine Urobilinogen (0.2-1.0) Ur Leukocyte Esterase (Negative) Urine RBC (0-5) /hpf Urine WBC (0-5) /hpf Ur Squamous Epith Cells (0-5) /hpf Urine Bacteria (FEW) /hpf Urine Mucus (FEW) /hpf SARS-CoV-2 RNA (LETICIA) Negative (NEGATIVE) MRSA (PCR) Negative 03/17/21 03/17/21 Range/Units 09:31 09:31 WBC 21.26 H (4.23-9.07) K/mm3 RBC 4.74 (4.63-6.08) M/mm3 Hgb 13.4 L (13.7-17.5) gm/dl Hct 43.8 (40.1-51.0) % MCV 92.4 H (79.0-92.2) fl MCH 28.3 (25.7-32.2) pg MCHC 30.6 L (32.2-35.5) g/dl RDW Std Deviation 58.4 H (35.1-43.9) fL Plt Count 207 (163-337) K/mm3 MPV 9.4 (9.4-12.3) fl Neut % (Auto) 89.0 H (34.0-67.9) % Lymph % (Auto) 3.7 L (21.8-53.1) % [place] % (Auto) 4.3 L (5.3-12.2) % Eos % (Auto) 2.6 (0.8-7.0) Baso % (Auto) 0.1 (0.1-1.2) % Neut # (Auto) 18.90 H (1.78-5.38) K/mm3 Lymph # (Auto) 0.79 L (1.32-3.57) K/mm3 [place] # (Auto) 0.92 H (0.30-0.82) K/mm3 Eos # (Auto) 0.56 H (0.04-0.54) K/mm3 Baso # (Auto) 0.02 (0.01-0.08) K/mm3 Manual Slide Review Abnormal smear PT (9.7-12.0) SECONDS INR Sodium 141 (136-145) mEq/L Potassium 3.9 (3.5-5.1) mEq/L Chloride 107 (98-107) mEq/L Carbon Dioxide 24 (21-32) mEq/L Anion Gap 13.9 (5-15) BUN 24 H (7-18) mg/dL Creatinine 1.0 (0.7-1.3) mg/dL Est Cr Clr Drug Dosing 58.63 mL/min Estimated GFR (MDRD) > 60 (>60) mL/min BUN/Creatinine Ratio 24.0 H (14-18) Glucose 105 (83-115) mg/dL Lactic Acid (0.4-2.0) mmol/L Calcium 9.1 (8.5-10.1) mg/dL Magnesium 1.8 (1.8-2.4) mg/dl Total Bilirubin 0.5 (0.2-1.0) mg/dL AST 17 (15-37) U/L ALT 22 (16-63) U/L Alkaline Phosphatase 95 (46-116) U/L Troponin I (0.00-0.056) ng/mL C-Reactive Protein 5.9 H* (<1.0) mg/dL NT-Pro-B Natriuret Pep (0-125) pg/mL Total Protein 6.5 (6.4-8.2) g/dl Albumin 2.5 L (3.4-5.0) g/dl Globulin 4.0 gm/dL Albumin/Globulin Ratio 0.6 L (1-2) Urine Color (Yellow) Urine Appearance (Clear) Urine pH (5.0-8.0) Ur Specific [place] (1.005-1.030) Urine Protein (Negative) Urine Glucose (UA) (Negative) Urine Ketones (Negative) Urine Occult Blood (Negative) Urine Nitrite (Negative) Urine Bilirubin (Negative) Urine Urobilinogen (0.2-1.0) Ur Leukocyte Esterase (Negative) Urine RBC (0-5) /hpf Urine WBC (0-5) /hpf Ur Squamous Epith Cells (0-5) /hpf Urine Bacteria (FEW) /hpf Urine Mucus (FEW) /hpf SARS-CoV-2 RNA (LETICIA) (NEGATIVE) MRSA (PCR) Result Diagrams: 03/17/21 09:31 03/17/21 09:31 Yan Results Last 24 hrs: Microbiology 03/16/21 17:17 Urine Culture - Preliminary Urine, Daniels Cath ([place]) Gram Negative Rods 03/16/21 19:56 Anaerobic Blood Culture - Final Blood - Venous - Lab Draw 03/16/21 19:05 Anaerobic Blood Culture - Final Blood - Venous Sepsis Event Note - Focused Exam Vital Signs: Vital Signs Temp Pulse Resp BP Pulse Ox Pulse Ox 03/17/21 10:10 114/87 03/17/21 09:34 37.0 C 79 16 114/87 97 03/17/21 09:28 96 Orders Last 24hrs: Active Orders 24 hr Category Date Time Status Admission Status [Patient Status] [ADT] Routine ADT 03/16/21 20:13 Active Bedrest [RC] , Care 03/17/21 00:34 Active Intake and Output [RC] 04, Care 03/17/21 00:47 Active Oxygen Therapy [RC] ASDIRECTED Care 03/17/21 12:37 Active OT Evaluation and Treatment [CONS] Routine Cons 03/17/21 12:35 Active PT Evaluation and Treatment [CONS] Routine Cons 03/17/21 12:34 Active Consistent Carbohydrate Diet [DIET] Diet 03/17/21 Breakfast Active Mechanical Soft Diet [DIET] Diet 03/17/21 Lunch Active C-REACTIVE PROTEIN [CHEM] AM Lab 03/18/21 05:11 Ordered CBC WITH AUTO DIFF [HEME] AM Lab 03/18/21 05:11 Ordered COMPREHENSIVE METABOLIC PN,CMP [CHEM] AM Lab 03/18/21 05:11 Ordered CULTURE BLOOD [BC] Stat Lab 03/16/21 19:05 Results CULTURE BLOOD [BC] Stat Lab 03/16/21 19:56 Results CULTURE URINE [RM] Stat Lab 03/16/21 17:17 Results MAGNESIUM [CHEM] AM Lab 03/18/21 05:11 Ordered Acetaminophen [TylenoL] Med 03/17/21 09:17 Active 650 mg PO Q4H PRN Celecoxib [CeleBREX] Med 03/17/21 10:00 Active 200 mg PO DAILY Cholecalciferol (Vitamin D3) [Vitamin D3] Med 03/17/21 10:00 Active 50 mcg PO DAILY Docusate Sodium [Colace] Med 03/17/21 10:00 Active 100 mg PO DAILY Enoxaparin [Lovenox] Med 03/17/21 11:00 Active 30 mg SUBCUT Q24H FLUoxetine [PROzac] Med 03/17/21 10:00 Active 10 mg PO DAILY HYDROmorphone [Dilaudid] Med 03/17/21 00:39 Active 1 mg IVPUSH Q2H PRN Hydroxyurea [Hydrea] Med 03/17/21 10:00 Active 500 mg PO MoTuWeThFr Montelukast [Singulair] Med 03/17/21 10:00 Active 10 mg PO DAILY Morphine [Morphine 10 MG/0.5 ML Oral Syringe] Med 03/17/21 09:48 Active 5 mg PO Q3H PRN Ondansetron [Zofran ODT] Med 03/17/21 09:17 Active 4 mg PO Q6H PRN Ondansetron [Zofran] Med 03/17/21 00:43 Active 4 mg IVPUSH Q6H PRN Psyllium Husk/Aspartame [Metamucil Sugar Free] Med 03/17/21 10:00 Active 1 pkt PO DAILY Sodium Chloride 0.9% [Normal Saline] 1,000 ml Med 03/17/21 08:00 Active IV ASDIRECTED amLODIPine [Norvasc] Med 03/17/21 10:00 Active 10 mg PO DAILY atorvaSTATin [Lipitor] Med 03/17/21 21:00 Active 40 mg PO BEDTIME cefTRIAXone [Rocephin] 1 gm Med 03/17/21 20:00 Active Sodium Chloride 0.9% [Normal Saline] 100 ml IV Q24H haloperidoL [Haldol] Med 03/17/21 09:17 Active 5 mg PO Q8H PRN Blood Culture x2 Reflex Set [OM.PC] Stat Oth 03/16/21 18:44 Ordered Code Status [Resuscitation Status] Routine Resus Stat 03/17/21 00:31 Ordered Medication Orders Acetaminophen (Acetaminophen 325 Mg Tab) 650 mg PO Q4H PRN PRN Reason: Pain Amlodipine Besylate (Amlodipine 10 Mg Tab) 10 mg PO DAILY DARRELL Last Admin: 03/17/21 10:10 Dose: 10 mg Documented by: DEMAR Atorvastatin Calcium (Atorvastatin 40 Mg Tab) 40 mg PO BEDTIME [facility] Celecoxib (Celecoxib 100 Mg Cap) 200 mg PO DAILY [facility] Last Admin: 03/17/21 10:09 Dose: 200 mg Documented by: DEMAR Cholecalciferol (Cholecalciferol (Vitamin D3) 25 Mcg Tab) 50 mcg PO DAILY [facility] Last Admin: 03/17/21 10:09 Dose: 50 mcg Documented by: DEMAR Docusate Sodium (Docusate Sodium 100 Mg Cap) 100 mg PO DAILY [facility] Last Admin: 03/17/21 10:10 Dose: 100 mg Documented by: DEMAR Enoxaparin Sodium (Enoxaparin 30 Mg/0.3 Ml Syringe) 30 mg SUBCUT Q24H [facility] Last Admin: 03/17/21 10:37 Dose: 30 mg Documented by: DEMAR Fluoxetine HCl (Fluoxetine 10 Mg Cap) 10 mg PO DAILY [facility] Last Admin: 03/17/21 10:09 Dose: 10 mg Documented by: DEMAR Haloperidol (Haloperidol 5 Mg Tab) 5 mg PO Q8H PRN PRN Reason: delirium or terminal restlessn Hydromorphone HCl (Hydromorphone 1 Mg/Ml Syringe) 1 mg IVPUSH Q2H PRN PRN Reason: Pain Hydroxyurea (Hydroxyurea 500 Mg Cap) 500 mg PO MoTuWeThFr [facility] Last Admin: 03/17/21 10:37 Dose: 500 mg Documented by: DEMAR Ceftriaxone Sodium 1 gm/ (Sodium Chloride) 100 mls @ 200 mls/hr IV Q24H [facility] Sodium Chloride (Normal Saline) 1,000 mls @ 100 mls/hr IV ASDIRECTED [facility] Last Admin: 03/17/21 14:05 Dose: 100 mls/hr Documented by: DEMAR Montelukast Sodium (Montelukast 10 Mg Tab) 10 mg PO DAILY [facility] Last Admin: 03/17/21 10:10 Dose: 10 mg Documented by: DEMAR Morphine Sulfate (Morphine 10 Mg/0.5 Ml Oral Syringe) 5 mg PO Q3H PRN PRN Reason: Pain Ondansetron HCl (Ondansetron 4 Mg/2 Ml Sdv) 4 mg IVPUSH Q6H PRN PRN Reason: Nausea/Vomiting Ondansetron HCl (Ondansetron 4 Mg Tab.Dis) 4 mg PO Q6H PRN PRN Reason: Nausea Psyllium Husk (Psyllium Husk Powder Sugar Free 5.85 Gm Packet) 1 pkt PO DAILY DARRELL Last Admin: 03/17/21 10:10 Dose: 1 pkt Documented by: DEMAR Assessment/Plan Comment:: I have seen and evaluated the patient independently of LUIS Beltran, and have reviewed and agree with the orders and plan of care as outlined by her. I have discussed the case with her. Please see orders.
[2021-03-17] MEDS: Sodium Chloride 0.9% 1,000 ML IV SCH (14:05)
[2021-03-17] MEDS: atorvaSTATin 40 MG Tab PO SCH (20:37)
[2021-03-17] MEDS: cefTRIAXone 1 GM in Sodium Chloride 0.9% 100 ML IV SCH (20:37)
[2021-03-18] MEDS: Sodium Chloride 0.9% 1,000 ML IV SCH ×3 (01:35→20:20)
[2021-03-18] MEDS: Celecoxib 100 MG Cap PO SCH (08:12)
[2021-03-18] MEDS: Docusate Sodium 100 MG Cap PO SCH (08:12)
[2021-03-18] MEDS: amLODIPine 10 MG Tab PO SCH (08:12)
[2021-03-18] MEDS: Cholecalciferol (Vitamin D3) 25 MCG Tab PO SCH (08:12)
[2021-03-18] MEDS: Montelukast 10 MG Tab PO SCH (08:12)
[2021-03-18] MEDS: Psyllium Husk Powder Sugar Free 5.85 GM Packet PO SCH (08:12)
[2021-03-18] MEDS: FLUoxetine 10 MG Cap PO SCH (08:12)
--- NOTE | 2021-03-18 11:22 | PCM.PN ---
- General Info Date of Service: 03/18/21 Admission Dx/Problem (Free Text): Admission Diagnosis/Problem Admission Diagnosis/Problem Bacteremia Subjective Update: 03/18/21 afebrile vss. denies back flank or abd pain. no sweats and slept well last night . p.e features of mild mouth and blinking movements. affect not anxious , comfortable and alert. abd benign . mcneal draining clear urine. i.v sight clean lab gram neg ti in urine prob. pseudomonas and klebsiella . blood culture 12/05 for gram pos. cocci. other organisms being worked up for i.d. . 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 patient received full dose gent on admission then switched to rocephin. follow up blood c/s ordered. assess: uti sec. 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 schizophrenia . stable plan awaiting i.d form blood cultures and urine cultures plus spec. but good clinical response to rocephin . other options for indwelling mcneal cath explored.? cont supportive care for schizophrenia . boh . Functional Status: Reports: Pain Controlled - Review of Systems General: Reports: No Symptoms HEENT: Reports: No Symptoms Pulmonary: Reports: No Symptoms Cardiovascular: Reports: No Symptoms Gastrointestinal: Reports: No Symptoms Genitourinary: Reports: No Symptoms Musculoskeletal: Reports: No Symptoms Skin: Reports: No Symptoms Neurological: Reports: No Symptoms Psychiatric: Reports: No Symptoms - Patient Data Vitals - Most Recent: Last Vital Signs Temp 36.8 C 03/18/21 08:10 Pulse 59 L 03/18/21 08:10 Resp 18 03/18/21 08:10 BP 110/72 03/18/21 08:12 Pulse Ox 99 03/18/21 08:10 Weight - Most Recent: 64.274 kg I&O - Last 24 Hours: Intake & Output 03/17/21 03/18/21 03/18/21 22:59 06:59 14:59 Intake Total 1410 1692 Output Total 980 875 725 Balance 430 817 -725 Lab Results Last 24 Hours: Laboratory Results - last 24 hr 03/18/21 03/18/21 Range/Units 06:01 06:01 WBC 13.99 H (4.23-9.07) K/mm3 RBC 4.61 L (4.63-6.08) M/mm3 Hgb 13.2 L (13.7-17.5) gm/dl Hct 42.3 (40.1-51.0) % MCV 91.8 (79.0-92.2) fl MCH 28.6 (25.7-32.2) pg MCHC 31.2 L (32.2-35.5) g/dl RDW Std Deviation 57.4 H (35.1-43.9) fL Plt Count 203 (163-337) K/mm3 MPV 9.5 (9.4-12.3) fl Neut % (Auto) 83.0 H (34.0-67.9) % Lymph % (Auto) 7.8 L (21.8-53.1) % [place] % (Auto) 5.5 (5.3-12.2) % Eos % (Auto) 3.4 (0.8-7.0) Baso % (Auto) 0.1 (0.1-1.2) % Neut # (Auto) 11.60 H (1.78-5.38) K/mm3 Lymph # (Auto) 1.09 L (1.32-3.57) K/mm3 [place] # (Auto) 0.77 (0.30-0.82) K/mm3 Eos # (Auto) 0.48 (0.04-0.54) K/mm3 Baso # (Auto) 0.02 (0.01-0.08) K/mm3 Manual Slide Review Abnormal smear Sodium 142 (136-145) mEq/L Potassium 3.6 (3.5-5.1) mEq/L Chloride 110 H (98-107) mEq/L Carbon Dioxide 21 (21-32) mEq/L Anion Gap 14.6 (5-15) BUN 19 H (7-18) mg/dL Creatinine 0.9 (0.7-1.3) mg/dL Est Cr Clr Drug Dosing 65.46 mL/min Estimated GFR (MDRD) > 60 (>60) mL/min BUN/Creatinine Ratio 21.1 H (14-18) Glucose 86 (83-115) mg/dL Calcium 9.3 (8.5-10.1) mg/dL Magnesium 1.6 L (1.8-2.4) mg/dl Total Bilirubin 0.7 (0.2-1.0) mg/dL AST 18 (15-37) U/L ALT 22 (16-63) U/L Alkaline Phosphatase 95 (46-116) U/L C-Reactive Protein 4.7 H* (<1.0) mg/dL Total Protein 6.1 L (6.4-8.2) g/dl Albumin 2.4 L (3.4-5.0) g/dl Globulin 3.7 gm/dL Albumin/Globulin Ratio 0.7 L (1-2) Yan Results Last 24 Hours: Microbiology 03/16/21 17:17 Urine Culture - Preliminary Urine, Mcneal Cath (Indwelling) Klebsiella Pneumoniae Probable Pseudomonas Species 03/16/21 19:05 Aerobic Blood Culture - Preliminary Blood - Venous Gram Positive Cocci Anaerobic Blood Culture - Final 03/16/21 19:56 Aerobic Blood Culture - Preliminary Blood - Venous - Lab Draw NO GROWTH AFTER 1 DAY Anaerobic Blood Culture - Final Med Orders - Current: Current Medications Acetaminophen (Acetaminophen 325 Mg Tab) 650 mg PO Q4H PRN PRN Reason: Pain Amlodipine Besylate (Amlodipine 10 Mg Tab) 10 mg PO DAILY [facility] Last Admin: 03/18/21 08:12 Dose: 10 mg Documented by: Atorvastatin Calcium (Atorvastatin 40 Mg Tab) 40 mg PO BEDTIME [facility] Last Admin: 03/17/21 20:37 Dose: 40 mg Documented by: Celecoxib (Celecoxib 100 Mg Cap) 200 mg PO DAILY [facility] Last Admin: 03/18/21 08:12 Dose: 200 mg Documented by: Cholecalciferol (Cholecalciferol (Vitamin D3) 25 Mcg Tab) 50 mcg PO DAILY [facility] Last Admin: 03/18/21 08:12 Dose: 50 mcg Documented by: Docusate Sodium (Docusate Sodium 100 Mg Cap) 100 mg PO DAILY [facility] Last Admin: 03/18/21 08:12 Dose: 100 mg Documented by: Enoxaparin Sodium (Enoxaparin 30 Mg/0.3 Ml Syringe) 30 mg SUBCUT Q24H [facility] Last Admin: 03/17/21 10:37 Dose: 30 mg Documented by: Fluoxetine HCl (Fluoxetine 10 Mg Cap) 10 mg PO DAILY [facility] Last Admin: 03/18/21 08:12 Dose: 10 mg Documented by: Haloperidol (Haloperidol 5 Mg Tab) 5 mg PO Q8H PRN PRN Reason: delirium or terminal restlessn Hydromorphone HCl (Hydromorphone 1 Mg/Ml Syringe) 1 mg IVPUSH Q2H PRN PRN Reason: Pain Hydroxyurea (Hydroxyurea 500 Mg Cap) 500 mg PO MoTuWeThFr [facility] Last Admin: 03/17/21 10:37 Dose: 500 mg Documented by: Ceftriaxone Sodium 1 gm/ (Sodium Chloride) 100 mls @ 200 mls/hr IV Q24H [facility] Last Admin: 03/17/21 20:37 Dose: 200 mls/hr Documented by: Sodium Chloride (Normal Saline) 1,000 mls @ 100 mls/hr IV ASDIRECTED [facility] Last Admin: 03/18/21 01:35 Dose: 100 mls/hr Documented by: Montelukast Sodium (Montelukast 10 Mg Tab) 10 mg PO DAILY [facility] Last Admin: 03/18/21 08:12 Dose: 10 mg Documented by: Morphine Sulfate (Morphine 10 Mg/0.5 Ml Oral Syringe) 5 mg PO Q3H PRN PRN Reason: Pain Ondansetron HCl (Ondansetron 4 Mg/2 Ml Sdv) 4 mg IVPUSH Q6H PRN PRN Reason: Nausea/Vomiting Ondansetron HCl (Ondansetron 4 Mg Tab.Dis) 4 mg PO Q6H PRN PRN Reason: Nausea Psyllium Husk (Psyllium Husk Powder Sugar Free 5.85 Gm Packet) 1 pkt PO DAILY [facility] Last Admin: 03/18/21 08:12 Dose: 1 pkt Documented by: Discontinued Medications Ceftriaxone Sodium 2 gm/ (Sodium Chloride) 100 mls @ 200 mls/hr IV ONETIME ONE Stop: 03/16/21 19:12 Last Admin: 03/16/21 19:54 Dose: 200 mls/hr Documented by: Dextrose/Sodium Chloride (Dextrose 5%-Normal Saline) 1,000 mls @ 999 mls/hr IV ASDIRECTED [facility] Last Admin: 03/16/21 19:53 Dose: 999 mls/hr Documented by: Levofloxacin (Levofloxacin 500 Mg Tab) 500 mg PO ONETIME ONE Stop: 03/16/21 17:13 Last Admin: 03/16/21 18:08 Dose: 500 mg Documented by: - Exam General: Alert, Oriented HEENT: Pupils Equal, Pupils Reactive, EOMI, Mucous Membr. Moist/[place] Neck: Supple Lungs: Clear to Auscultation, Normal Respiratory Effort Cardiovascular: Regular Rate, Regular Rhythm GI/Abdominal Exam: Normal Bowel Sounds, Soft, Non-Tender, No Organomegaly, No Distention, No Abnormal Bruit, No Mass, Pelvis Stable (Male) Exam: No Hernia, Normal Inspection, Normal Prostate, Circumcised Back Exam: Normal Inspection, Full Range of Motion Extremities: Normal Inspection, Normal Range of Motion, Non-Tender, No Pedal Edema, Normal Capillary Refill Skin: Warm, Dry, Intact Wound/Incisions: Healing Well Neurological: No New Focal Deficit Psy/Mental Status: Alert, Normal Affect, Normal Mood - Patient Data Lab Results Last 24 hrs: Laboratory Results - last 24 hr 03/18/21 03/18/21 Range/Units 06:01 06:01 WBC 13.99 H (4.23-9.07) K/mm3 RBC 4.61 L (4.63-6.08) M/mm3 Hgb 13.2 L (13.7-17.5) gm/dl Hct 42.3 (40.1-51.0) % MCV 91.8 (79.0-92.2) fl MCH 28.6 (25.7-32.2) pg MCHC 31.2 L (32.2-35.5) g/dl RDW Std Deviation 57.4 H (35.1-43.9) fL Plt Count 203 (163-337) K/mm3 MPV 9.5 (9.4-12.3) fl Neut % (Auto) 83.0 H (34.0-67.9) % Lymph % (Auto) 7.8 L (21.8-53.1) % [place] % (Auto) 5.5 (5.3-12.2) % Eos % (Auto) 3.4 (0.8-7.0) Baso % (Auto) 0.1 (0.1-1.2) % Neut # (Auto) 11.60 H (1.78-5.38) K/mm3 Lymph # (Auto) 1.09 L (1.32-3.57) K/mm3 [place] # (Auto) 0.77 (0.30-0.82) K/mm3 Eos # (Auto) 0.48 (0.04-0.54) K/mm3 Baso # (Auto) 0.02 (0.01-0.08) K/mm3 Manual Slide Review Abnormal smear Sodium 142 (136-145) mEq/L Potassium 3.6 (3.5-5.1) mEq/L Chloride 110 H (98-107) mEq/L Carbon Dioxide 21 (21-32) mEq/L Anion Gap 14.6 (5-15) BUN 19 H (7-18) mg/dL Creatinine 0.9 (0.7-1.3) mg/dL Est Cr Clr Drug Dosing 65.46 mL/min Estimated GFR (MDRD) > 60 (>60) mL/min BUN/Creatinine Ratio 21.1 H (14-18) Glucose 86 (83-115) mg/dL Calcium 9.3 (8.5-10.1) mg/dL Magnesium 1.6 L (1.8-2.4) mg/dl Total Bilirubin 0.7 (0.2-1.0) mg/dL AST 18 (15-37) U/L ALT 22 (16-63) U/L Alkaline Phosphatase 95 (46-116) U/L C-Reactive Protein 4.7 H* (<1.0) mg/dL Total Protein 6.1 L (6.4-8.2) g/dl Albumin 2.4 L (3.4-5.0) g/dl Globulin 3.7 gm/dL Albumin/Globulin Ratio 0.7 L (1-2) Result Diagrams: 03/18/21 06:01 03/18/21 06:01 Yan Results Last 24 hrs: Microbiology 03/16/21 17:17 Urine Culture - Preliminary Urine, Mcneal Cath (Indwelling) Klebsiella Pneumoniae Probable Pseudomonas Species 03/16/21 19:05 Aerobic Blood Culture - Preliminary Blood - Venous Gram Positive Cocci Anaerobic Blood Culture - Final 03/16/21 19:56 Aerobic Blood Culture - Preliminary Blood - Venous - Lab Draw NO GROWTH AFTER 1 DAY Anaerobic Blood Culture - Final Sepsis Event Note - Evaluation Sepsis Screening Result: No Definite Risk - Focused Exam Vital Signs: Vital Signs Temp Pulse Resp BP Pulse Ox 03/18/21 08:12 110/72 03/18/21 08:10 36.8 C 59 L 18 110/72 99 03/18/21 04:59 36.8 C 62 12 129/74 98 - Problem List Review Problem List Initiated/Reviewed/Updated: Yes - Assessment Assessment:: 03/18/21 afebrile vss. denies back flank or abd pain. no sweats and slept well last night . p.e features of mild mouth and blinking movements. affect not anxious , comfortable and alert. abd benign . mcneal draining clear urine. i.v sight clean lab gram neg ti in urine prob. pseudomonas. other organisms being worked up for i.d. . 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 assess: uti sec. 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 schizophrenia . stable plan awaiting i.d form blood cultures and urine cultures plus spec. but good clinical response to rocephin . other options for indwelling mcneal cath explored.? cont supportive care for schizophrenia . boh . - Plan Plan:: I have seen and evaluated the patient independently of LUIS Beltran, and have reviewed and agree with the orders and plan of care as outlined by her. I have discussed the case with her. Please see orders. 03/18/21 afebrile vss. denies back flank or abd pain. no sweats and slept well last night . p.e features of mild mouth and blinking movements. affect not anxious , comfortable and alert. abd benign . mcneal draining clear urine. i.v sight clean lab gram neg ti in urine prob. pseudomonas. other organisms being worked up for i.d. . 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 assess: uti sec. 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 schizophrenia . stable plan awaiting i.d form blood cultures and urine cultures plus spec. but good clinical response to rocephin . other options for indwelling mcneal cath explored.? cont supportive care for schizophrenia . boh .
[2021-03-18] MEDS: Enoxaparin 30 MG/0.3 ML Syringe SUBCUT SCH (11:27)
[2021-03-18] MEDS ORDERED: Magnesium Sulfate/Water 2 GM/50 ML BAG IV ONE (14:54)
[2021-03-18] MEDS: cefTRIAXone 1 GM in Sodium Chloride 0.9% 100 ML IV SCH (20:20)
[2021-03-18] MEDS: atorvaSTATin 40 MG Tab PO SCH (20:20)
[2021-03-19] MEDS: Montelukast 10 MG Tab PO SCH (08:18)
[2021-03-19] MEDS: Cholecalciferol (Vitamin D3) 25 MCG Tab PO SCH (08:19)
[2021-03-19] MEDS: Docusate Sodium 100 MG Cap PO SCH (08:19)
[2021-03-19] MEDS: amLODIPine 10 MG Tab PO SCH (08:19)
[2021-03-19] MEDS: Celecoxib 100 MG Cap PO SCH (08:19)
[2021-03-19] MEDS: Psyllium Husk Powder Sugar Free 5.85 GM Packet PO SCH (08:20)
[2021-03-19] MEDS: FLUoxetine 10 MG Cap PO SCH (08:20)
[2021-03-19] MEDS: Sodium Chloride 0.9% 1,000 ML IV SCH (09:05)
--- NOTE | 2021-03-19 11:28 | PCM.PN ---
- General Info Date of Service: 03/19/21 Admission Dx/Problem (Free Text): Admission Diagnosis/Problem Admission Diagnosis/Problem Bacteremia Subjective Update: 03/18/21 afebrile vss. denies back flank or abd pain. no sweats and slept well last night . p.e features of mild mouth and blinking movements. affect not anxious , comfortable and alert. abd benign . mcneal draining clear urine. i.v sight clean lab gram neg ti in urine prob. pseudomonas and klebsiella . blood culture 12/05 for gram pos. cocci. other organisms being worked up for i.d. . 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 patient received full dose gent on admission then switched to rocephin. follow up blood c/s ordered. assess: uti sec. 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 schizophrenia . stable plan awaiting i.d form blood cultures and urine cultures plus spec. but good clinical response to rocephin . other options for indwelling mcneal cath explored.? cont supportive care for schizophrenia . boh . 03/19/21 afebrile doing very well / mcneal changed out and draining clear fluid . left femur fx. mildly painful when moving labs improved crp 2.2 k low 3.2 and ordering oral k . p.e. unchanged, left leg not warm or swollen and tenderness noted mid shaft with movement passively of leg. no signs dvt . assess 1)uti klebsiella and pseudomonas both growing and sensitive to cipro but resistance issues make use of flouroquinalone less atractive. consider options bactrim and or augmentin . dc planning underway . 2) femur fx left with very decreased mobility on lovenox prophylaxis for dvt. 3) schiophrenia doing well on current meds. plan hep lock i.v replace k. switch to bactrum and consider reculture in one week sec. to pseu domonas single drug treatment x 4 days (rocephin). 4) cont longer term dvt prophylaxis . boh Functional Status: Reports: Pain Controlled, Tolerating Diet, Urinating - Review of Systems General: Reports: No Symptoms HEENT: Reports: No Symptoms Pulmonary: Reports: No Symptoms Cardiovascular: Reports: No Symptoms Gastrointestinal: Reports: No Symptoms Genitourinary: Reports: No Symptoms Musculoskeletal: Reports: Leg Pain. Denies: No Symptoms Skin: Reports: No Symptoms Neurological: Reports: No Symptoms Psychiatric: Reports: No Symptoms - Patient Data Vitals - Most Recent: Last Vital Signs Temp 36.8 C 03/19/21 08:15 Pulse 60 03/19/21 08:15 Resp 20 03/19/21 08:15 BP 111/58 L 03/19/21 08:19 Pulse Ox 96 03/19/21 08:15 Weight - Most Recent: 64.682 kg I&O - Last 24 Hours: Intake & Output 03/18/21 03/19/21 03/19/21 22:59 06:59 14:59 Intake Total 2054 1553 Output Total 650 975 700 Balance 1404 578 -700 Lab Results Last 24 Hours: Laboratory Results - last 24 hr 03/19/21 03/19/21 Range/Units 08:29 08:29 WBC 13.43 H (4.23-9.07) K/mm3 RBC 4.89 (4.63-6.08) M/mm3 Hgb 14.0 (13.7-17.5) gm/dl Hct 44.3 (40.1-51.0) % MCV 90.6 (79.0-92.2) fl MCH 28.6 (25.7-32.2) pg MCHC 31.6 L (32.2-35.5) g/dl RDW Std Deviation 57.1 H (35.1-43.9) fL Plt Count 220 (163-337) K/mm3 MPV 9.4 (9.4-12.3) fl Neut % (Auto) 87.0 H (34.0-67.9) % Lymph % (Auto) 6.0 L (21.8-53.1) % [place] % (Auto) 3.7 L (5.3-12.2) % Eos % (Auto) 2.7 (0.8-7.0) Baso % (Auto) 0.1 (0.1-1.2) % Neut # (Auto) 11.67 H (1.78-5.38) K/mm3 Lymph # (Auto) 0.81 L (1.32-3.57) K/mm3 [place] # (Auto) 0.50 (0.30-0.82) K/mm3 Eos # (Auto) 0.36 (0.04-0.54) K/mm3 Baso # (Auto) 0.02 (0.01-0.08) K/mm3 Manual Slide Review Abnormal smear Sodium 141 (136-145) mEq/L Potassium 3.3 L (3.5-5.1) mEq/L Chloride 109 H (98-107) mEq/L Carbon Dioxide 20 L (21-32) mEq/L Anion Gap 15.3 H (5-15) BUN 13 (7-18) mg/dL Creatinine 0.8 (0.7-1.3) mg/dL Est Cr Clr Drug Dosing 74.12 mL/min Estimated GFR (MDRD) > 60 (>60) mL/min BUN/Creatinine Ratio 16.3 (14-18) Glucose 86 (83-115) mg/dL Calcium 8.8 (8.5-10.1) mg/dL C-Reactive Protein 2.2 H* (<1.0) mg/dL Yan Results Last 24 Hours: Microbiology 03/16/21 17:17 Urine Culture - Preliminary Urine, Mcneal Cath (Indwelling) Klebsiella Pneumoniae Pseudomonas Aeruginosa 03/18/21 10:10 Aerobic Blood Culture - Preliminary Blood - Venous - Lab Draw NO GROWTH AFTER 1 DAY Anaerobic Blood Culture - Final 03/18/21 09:45 Aerobic Blood Culture - Preliminary Blood - Venous NO GROWTH AFTER 1 DAY Anaerobic Blood Culture - Preliminary NO GROWTH AFTER 1 DAY 03/16/21 19:05 Aerobic Blood Culture - Preliminary Blood - Venous Staphylococcus Hominis Anaerobic Blood Culture - Final 03/16/21 19:56 Aerobic Blood Culture - Preliminary Blood - Venous - Lab Draw NO GROWTH AFTER 2 DAYS Anaerobic Blood Culture - Final Med Orders - Current: Current Medications Acetaminophen (Acetaminophen 325 Mg Tab) 650 mg PO Q4H PRN PRN Reason: Pain Amlodipine Besylate (Amlodipine 10 Mg Tab) 10 mg PO DAILY [facility] Last Admin: 03/19/21 08:19 Dose: 10 mg Documented by: Atorvastatin Calcium (Atorvastatin 40 Mg Tab) 40 mg PO BEDTIME [facility] Last Admin: 03/18/21 20:20 Dose: 40 mg Documented by: Celecoxib (Celecoxib 100 Mg Cap) 200 mg PO DAILY [facility] Last Admin: 03/19/21 08:19 Dose: 200 mg Documented by: Cholecalciferol (Cholecalciferol (Vitamin D3) 25 Mcg Tab) 50 mcg PO DAILY [facility] Last Admin: 03/19/21 08:19 Dose: 50 mcg Documented by: Docusate Sodium (Docusate Sodium 100 Mg Cap) 100 mg PO DAILY [facility] Last Admin: 03/19/21 08:19 Dose: 100 mg Documented by: Enoxaparin Sodium (Enoxaparin 30 Mg/0.3 Ml Syringe) 30 mg SUBCUT Q24H [facility] Last Admin: 03/18/21 11:27 Dose: 30 mg Documented by: Fluoxetine HCl (Fluoxetine 10 Mg Cap) 10 mg PO DAILY [facility] Last Admin: 03/19/21 08:20 Dose: 10 mg Documented by: Haloperidol (Haloperidol 5 Mg Tab) 5 mg PO Q8H PRN PRN Reason: delirium or terminal restlessn Hydromorphone HCl (Hydromorphone 1 Mg/Ml Syringe) 1 mg IVPUSH Q2H PRN PRN Reason: Pain Hydroxyurea (Hydroxyurea 500 Mg Cap) 500 mg PO MoTuWeThFr [facility] Last Admin: 03/17/21 10:37 Dose: 500 mg Documented by: Ceftriaxone Sodium 1 gm/ (Sodium Chloride) 100 mls @ 200 mls/hr IV Q24H [facility] Last Admin: 03/18/21 20:20 Dose: 200 mls/hr Documented by: Montelukast Sodium (Montelukast 10 Mg Tab) 10 mg PO DAILY [facility] Last Admin: 03/19/21 08:18 Dose: 10 mg Documented by: Morphine Sulfate (Morphine 10 Mg/0.5 Ml Oral Syringe) 5 mg PO Q3H PRN PRN Reason: Pain Ondansetron HCl (Ondansetron 4 Mg/2 Ml Sdv) 4 mg IVPUSH Q6H PRN PRN Reason: Nausea/Vomiting Ondansetron HCl (Ondansetron 4 Mg Tab.Dis) 4 mg PO Q6H PRN PRN Reason: Nausea Psyllium Husk (Psyllium Husk Powder Sugar Free 5.85 Gm Packet) 1 pkt PO DAILY [facility] Last Admin: 03/19/21 08:20 Dose: 1 pkt Documented by: Discontinued Medications Ceftriaxone Sodium 2 gm/ (Sodium Chloride) 100 mls @ 200 mls/hr IV ONETIME ONE Stop: 03/16/21 19:12 Last Admin: 03/16/21 19:54 Dose: 200 mls/hr Documented by: Dextrose/Sodium Chloride (Dextrose 5%-Normal Saline) 1,000 mls @ 999 mls/hr IV ASDIRECTED [facility]AR[facility] Last Admin: 03/16/21 19:53 Dose: 999 mls/hr Documented by: Sodium Chloride (Normal Saline) 1,000 mls @ 100 mls/hr IV ASDIRECTED [facility] Last Admin: 03/19/21 09:05 Dose: 100 mls/hr Documented by: Magnesium Sulfate (Magnesium Sulfate In Water 2 Gm/50 Ml) 2 gm in 50 mls @ 25 mls/hr IV ONETIME ONE Stop: 03/18/21 16:53 Last Admin: 03/18/21 15:05 Dose: 25 mls/hr Documented by: Levofloxacin (Levofloxacin 500 Mg Tab) 500 mg PO ONETIME ONE Stop: 03/16/21 17:13 Last Admin: 03/16/21 18:08 Dose: 500 mg Documented by: - Exam General: Alert, Oriented HEENT: Pupils Equal, Pupils Reactive, EOMI, Mucous Membr. Moist/[place] Neck: Supple Lungs: Clear to Auscultation, Normal Respiratory Effort Cardiovascular: Regular Rate, Regular Rhythm GI/Abdominal Exam: Normal Bowel Sounds, Soft, Non-Tender, No Organomegaly, No Distention, No Abnormal Bruit, No Mass, Pelvis Stable (Male) Exam: No Hernia, Normal Inspection, Normal Prostate, Circumcised Back Exam: Normal Inspection, Full Range of Motion Extremities: Normal Inspection, Normal Range of Motion, Non-Tender, No Pedal Edema, Normal Capillary Refill, Leg Pain, Limited Range of Motion Skin: Warm, Dry, Intact Wound/Incisions: Healing Well Neurological: No New Focal Deficit Psy/Mental Status: Alert, Normal Affect, Normal Mood - Patient Data Lab Results Last 24 hrs: Laboratory Results - last 24 hr 03/19/21 03/19/21 Range/Units 08:29 08:29 WBC 13.43 H (4.23-9.07) K/mm3 RBC 4.89 (4.63-6.08) M/mm3 Hgb 14.0 (13.7-17.5) gm/dl Hct 44.3 (40.1-51.0) % MCV 90.6 (79.0-92.2) fl MCH 28.6 (25.7-32.2) pg MCHC 31.6 L (32.2-35.5) g/dl RDW Std Deviation 57.1 H (35.1-43.9) fL Plt Count 220 (163-337) K/mm3 MPV 9.4 (9.4-12.3) fl Neut % (Auto) 87.0 H (34.0-67.9) % Lymph % (Auto) 6.0 L (21.8-53.1) % [place] % (Auto) 3.7 L (5.3-12.2) % Eos % (Auto) 2.7 (0.8-7.0) Baso % (Auto) 0.1 (0.1-1.2) % Neut # (Auto) 11.67 H (1.78-5.38) K/mm3 Lymph # (Auto) 0.81 L (1.32-3.57) K/mm3 [place] # (Auto) 0.50 (0.30-0.82) K/mm3 Eos # (Auto) 0.36 (0.04-0.54) K/mm3 Baso # (Auto) 0.02 (0.01-0.08) K/mm3 Manual Slide Review Abnormal smear Sodium 141 (136-145) mEq/L Potassium 3.3 L (3.5-5.1) mEq/L Chloride 109 H (98-107) mEq/L Carbon Dioxide 20 L (21-32) mEq/L Anion Gap 15.3 H (5-15) BUN 13 (7-18) mg/dL Creatinine 0.8 (0.7-1.3) mg/dL Est Cr Clr Drug Dosing 74.12 mL/min Estimated GFR (MDRD) > 60 (>60) mL/min BUN/Creatinine Ratio 16.3 (14-18) Glucose 86 (83-115) mg/dL Calcium 8.8 (8.5-10.1) mg/dL C-Reactive Protein 2.2 H* (<1.0) mg/dL Result Diagrams: 03/19/21 08:29 03/19/21 08:29 Yan Results Last 24 hrs: Microbiology 03/16/21 17:17 Urine Culture - Preliminary Urine, Mcneal Cath (Indwelling) Klebsiella Pneumoniae Pseudomonas Aeruginosa 03/18/21 10:10 Aerobic Blood Culture - Preliminary Blood - Venous - Lab Draw NO GROWTH AFTER 1 DAY Anaerobic Blood Culture - Final 03/18/21 09:45 Aerobic Blood Culture - Preliminary Blood - Venous NO GROWTH AFTER 1 DAY Anaerobic Blood Culture - Preliminary NO GROWTH AFTER 1 DAY 03/16/21 19:05 Aerobic Blood Culture - Preliminary Blood - Venous Staphylococcus Hominis Anaerobic Blood Culture - Final 03/16/21 19:56 Aerobic Blood Culture - Preliminary Blood - Venous - Lab Draw NO GROWTH AFTER 2 DAYS Anaerobic Blood Culture - Final Sepsis Event Note - Evaluation Sepsis Screening Result: No Definite Risk - Focused Exam Vital Signs: Vital Signs Temp Pulse Resp BP Pulse Ox 03/19/21 08:19 111/58 L 03/19/21 08:15 36.8 C 60 20 111/58 L 96 03/19/21 06:00 36.8 C 63 14 118/61 96 - Problem List & Annotations (1) Schizophrenia SNOMED Code(s): 26934734 Code(s): F20.9 - SCHIZOPHRENIA, UNSPECIFIED Status: Acute Priority: Low Current Visit: Yes Qualifiers: Schizophrenia type: paranoid schizophrenia Qualified Code(s): F20.0 - Paranoid schizophrenia (2) Urinary tract infection associated with catheterization of urinary tract SNOMED Code(s): 550663394 Code(s): T83.511A - I/I REACT D/T INDWELLING URETHRAL CATHETER, INIT; N39.0 - URINARY TRACT INFECTION, SITE NOT SPECIFIED Status: Acute Priority: Medium Current Visit: Yes Onset Date: ~03/17/21 Qualifiers: Indwelling urinary catheter type: indwelling urethral catheter Encounter type: initial encounter Qualified Code(s): T83.511A - Infection and inflammatory reaction due to indwelling urethral catheter, initial encounter; N39.0 - Urinary tract infection, site not specified Annotation/Comment:: switch to po antibiotics consider cipro for pseudomonas if treatment to be continued bactrum and or augmentin otherwise. blood culture s hominis contaminant. (3) Femur fracture, left SNOMED Code(s): 63946644, [id number] Code(s): S72.92XA - UNSP FRACTURE OF LEFT FEMUR, INIT ENCNTR FOR CLOSED FRACTURE Status: Chronic Priority: Medium Current Visit: Yes Onset Date: ~03/17/21 Qualifiers: Encounter type: initial encounter Femur location: neck, unspecified portion Fracture type: closed Qualified Code(s): S72.002A - Fracture of unspecified part of neck of left femur, initial encounter for closed fracture - Problem List Review Problem List Initiated/Reviewed/Updated: Yes - Assessment Assessment:: 03/18/21 afebrile vss. denies back flank or abd pain. no sweats and slept well last night . p.e features of mild mouth and blinking movements. affect not anxious , comfortable and alert. abd benign . mcnela draining clear urine. i.v sight clean lab gram neg ti in urine prob. pseudomonas. other organisms being worked up for i.d. . 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 assess: uti sec. 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 schizophrenia . stable plan awaiting i.d form blood cultures and urine cultures plus spec. but good clinical response to rocephin . other options for indwelling mcneal cath explored.? cont supportive care for schizophrenia . boh . - Plan Plan:: I have seen and evaluated the patient independently of LUIS Beltran, and have reviewed and agree with the orders and plan of care as outlined by her. I have discussed the case with her. Please see orders. 03/18/21 afebrile vss. denies back flank or abd pain. no sweats and slept well last night . p.e features of mild mouth and blinking movements. affect not anxious , comfortable and alert. abd benign . mcneal draining clear urine. i.v sight clean lab gram neg ti in urine prob. pseudomonas. other organisms being worked up for i.d. . 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 assess: uti sec. 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 schizophrenia . stable plan awaiting i.d form blood cultures and urine cultures plus spec. but good clinical response to rocephin . other options for indwelling mcneal cath explored.? cont supportive care for schizophrenia . boh . 03/19/21 afebrile b.p low thisa am and metoprolol held / stable night slept well/ c/o of aches in feet and hands and al over,but mild. resp sats this am stable 90-94%/ decreased bs at bases no wheezing cvs regular irreg. rythum 70-90 no jvd// trace edema legs. no calf tenderness. abd benign eating breakfast well . neuro mild confusion but ao and knows all family present . trop 9 this am / rest pending . cbc hgn 10.7 creat. stable 1.4. chest xray chronic vasc congestion but improved chf appearance no infiltrates// enlarged heart unchanged . assess: 1)chf : improved but b.p dropping with diuresis.. pvcs cont. 2)cad : trop decreasing and cv status not stable yet (hypotension) but improved breathing and appetite/alertness and interaction . 3) anemia on pantiprozole and to unstable for endoscopy but check stool hemmoccults no brbr or melana noted. constipation being addressed . 4) nutritional status improving / t.p stable today creat. 1.5 . eating well with suppliments 5)oa/aches will try to get up to chair today if able to tolerate. no spec joints today. no signs gout but check uric acid. 6) renal insuff stable daily lasix likely if b.p will handle it. 7)copd restarted nebs x4 daily with cpt treatments . pretty severe emphysema and cor pulm clinically but improved sats and o2 at 1 liters
[2021-03-19] MEDS: Enoxaparin 30 MG/0.3 ML Syringe SUBCUT SCH (12:42)
[2021-03-19] MEDS: Potassium Chloride 20 MEQ Tab.ER PO SCH (12:42)
[2021-03-19] MEDS: atorvaSTATin 40 MG Tab PO SCH ×2 (19:48→21:09)
[2021-03-19] MEDS: Amoxicillin/Clavulanate K 875-125 MG Tab PO SCH ×2 (19:48→21:08)
[2021-03-20] MEDS: Cholecalciferol (Vitamin D3) 25 MCG Tab PO SCH (08:35)
[2021-03-20] MEDS: Docusate Sodium 100 MG Cap PO SCH (08:36)
[2021-03-20] MEDS: Montelukast 10 MG Tab PO SCH (08:36)
[2021-03-20] MEDS: Celecoxib 100 MG Cap PO SCH (08:36)
[2021-03-20] MEDS: Amoxicillin/Clavulanate K 875-125 MG Tab PO SCH (08:36)
[2021-03-20] MEDS: amLODIPine 10 MG Tab PO SCH (08:36)
[2021-03-20] MEDS: Potassium Chloride 20 MEQ Tab.ER PO SCH (08:36)
[2021-03-20] MEDS: FLUoxetine 10 MG Cap PO SCH (08:36)
[2021-03-20] MEDS: Psyllium Husk Powder Sugar Free 5.85 GM Packet PO SCH (08:39)
[2021-03-20] MEDS: Hydroxyurea 500 MG Cap PO SCH (10:24)
[2021-03-20] MEDS: Enoxaparin 30 MG/0.3 ML Syringe SUBCUT SCH (10:24)
--- NOTE | 2021-03-20 13:24 | PCM.DCSUM1 ---
Discharge Summary - Hospital Course Free Text/Narrative:: 03/20/21 doing very well overall. vss/afebrile and switched to p.o augmentin this am. weaned off o2 and sats stable 92-97%. mcneal draining without clots and or debri. schizophrenia very stable . leukocytosis much decreased. blood cultures cont. and urine grew out klebsiella and pseudomonas in mod. amounts and treated with 4 days rocephin now switched to augmentin. femur fracture non surgical and in conservative p.t to be continued. meds reviewed and on motrin for pain with prn morphine and requiring once or twice daily . reg diet. dnr/dni. follow up on rounds with DR Lind transfer back to [facility] Initial Comments: [facility] LIVE Admission History & Physical Patient Name: GUADALUPE RAYA Date of : 1945 Patient Status: Inpatient Attending Provider: Rodríguez Peacock Date: 03/17/21 11:51 Initialization Date: 03/17/21 11:51 <Nirali Hutson - Last Filed: 03/17/21 12:41> H&P History of Present Illness - General Date of Service: 03/17/21 Admit Problem/Dx: Admission Diagnosis/Problem Admission Diagnosis/Problem Bacteremia Source of Information: Patient, Custodial Records History Limitations: Reports: Other (Slightly confused at times; of note he does have a history of schizophrenia) - History of Present Illness Initial Comments - Free Text/Narative: 75-year-old male who presented to the emergency department with issues with his Mcneal catheter. Patient is a resident of [facility] in [place]. According to the emergency department history, the skilled nursing nurses had difficulty irrigating his Mcneal catheter. Mcneal catheter is chronic. The catheter was changed out about 10 days ago and then they reasonably began having problems irrigating it and it was changed out 2 nights ago. They also reported that they had troubles irrigating it yesterday morning. At the time of the patient's presentation to the emergency department there was a moderate amount of blood in the urine. ER physician was questioning bladder cancer so he did michelle ve an ultrasound at that time to evaluate. Per the ER physician's documentation there appeared to be some irregularity of the posterior wall of the bladder with some soft tissue thickening which could represent carcinoma of the bladder. The patient did not receive any antibiotics for prophylaxis of catheter change. The patient was chronically on Coumadin however per the skilled nursing records he was taken off of this on January 11 due to a nonoperative femur fracture that had occurred. Patient also takes Celebrex and he does have a history of polycythemia rubra vera. He saturations in the emergency department were 90% on room air however the patient does chronically wear oxygen at 1 to 2 L per nasal cannula at the skilled nursing. Labs in the emergency department reveal a white count of 28.45 with a left shift of 91% neutrophils and 2.7% lymphocytes with 2% bands. Hemoglobin is 14.6 with hematocrit of 47.1, platelet count is 294,000. Pro time is 12.3 with an INR of 1.15, sodium is 139, potassium 4.5, and a chloride of 105. Bicarb is 24 with an anion gap of 14.5, BUN is 32 with a creatinine of 1.2 and a GFR of 59. Glucose is 148. Calcium is 10.4 and BUN/creatinine ratio is elevated at 26.7. C- reactive protein is 6.5. Total protein is 7.1, albumin fraction low at 2.9. Lactic acid was 1.0. Blood cultures are pending Urinalysis revealed 3+ protein, 3+ blood, nitrite positive, 3+ leuk esterase, urine WBC greater than 100 with moderate bacteria. Urine cultures are pending The patient was given a liter of D5 NS in the emergency department. The patient was also given Levaquin 500 mg p.o. one-time dose and Rocephin 2 g IV in the emergency department. Left Leg Pain Score (Numeric/FACES): 8 - Related Data Allergies/Adverse Reactions: Allergies Allergy/AdvReac Type Severity Reaction Status Date / Time No Known Allergies Allergy Verified 03/16/21 16:04 Home Medications: Home Meds Acetaminophen 650 mg PO Q4HR PRN 01/06/21 [History] Celecoxib [CeleBREX] 200 mg PO DAILY 01/06/21 [History] Cholecalciferol (Vitamin D3) [Vitamin D3] 2,000 unit PO DAILY 01/06/21 [History] Docusate Sodium [Colace] 100 mg PO DAILY 01/06/21 [History] FLUoxetine [PROzac] 10 mg PO DAILY 01/06/21 [History] Hydroxyurea [Hydrea] 500 mg PO ASDIRECTED 01/06/21 [History] Ondansetron [Zofran] 4 mg PO Q6H PRN 01/06/21 [History] Psyllium Husk [Metamucil] 1 scoop PO ASDIRECTED 01/06/21 [History] amLODIPine [Norvasc] 10 mg PO DAILY 01/06/21 [History] atorvaSTATin [Lipitor] 40 mg PO DAILY 01/06/21 [History] Morphine [Morphine 20 MG/ML Soln] 0.25 ml PO Q3H PRN 03/16/21 [History] haloperidoL [Haldol] 5 mg PO Q8H PRN 03/16/21 [History] Menthol/Zinc Oxide [Calmoseptine] 1 applic TOP BID 03/17/21 [History] Montelukast [Singulair] 10 mg PO DAILY 03/17/21 [History] Past Medical History HEENT History: Reports: Impaired Vision Other HEENT History: chronic rhinitis Cardiovascular History: Reports: Afib, Blood Clots/VTE/DVT, CAD, Heart Failure, High Cholesterol, Hypertension, [place], Other (See Below) Other Cardiovascular History: intracardiac thrombosis; retirement anticoagulation Respiratory History: Reports: Other (See Below) Other Respiratory History: pleural effusions Gastrointestinal History: Reports: Chronic Constipation Genitourinary History: Reports: BPH, Chronic Renal Insuffiency, Neurogenic Bladder, Renal Calculus, Retention, Urinary, UTI, Recurrent, Other (See Below) Other Genitourinary History: chronic indwelling catheter Musculoskeletal History: Reports: Back Pain, Chronic, Fracture, Osteoporosis, Other (See Below) Other Musculoskeletal History: L femur fx (not a candidate for surgery) Neurological History: Reports: Other (See Below) Other Neuro History: vascular dementia with behavioral disturbance; dyskinesia Psychiatric History: Reports: Dementia, Depression, Psychosis, Schizophrenia, Other (See Below) Other Psychiatric History: insomnia Endocrine/Metabolic History: Reports: Diabetes, Type II, Hyperparathyroidism, Other (See Below) Other Endocrine/Metabolic History: hyperkalemia; hypercalcemia Hematologic History: Reports: Anticoagulation Therapy, Polycythemia - Past Surgical History Male Surgical History: Reports: Renal Calculus Social & Family History - Tobacco Use Tobacco Use Status *Q: Unknown Ever Used Tobacco Second Hand Smoke Exposure: No - Caffeine Use Caffeine Use: Reports: Coffee - Recreational Drug Use Recreational Drug Use: No - Living Situation & Occupation Living situation: Reports: Extended Care Facility (Currently a resident of [facility] in [place].) Occupation: Retired H&P Review of Systems - Review of Systems: Review Of Systems: See Below General: Reports: No Symptoms. Denies: Fever, Chills, Diaphoresis HEENT: Reports: No Symptoms Pulmonary: Reports: No Symptoms, Other (O2 saturations were 90% on room air in the emergency department however the patient does chronically wear oxygen at the skilled nursing at 1 to 2 L per nasal cannula) Cardiovascular: Reports: No Symptoms. Denies: Chest Pain, Palpitations, Dyspnea on Exertion, Edema, Lightheadedness Gastrointestinal: Reports: No Symptoms, Abdominal Pain (Suprapubic). Denies: Constipation, Diarrhea, Nausea, Vomiting Genitourinary: Reports: Hematuria, Other (Chronic Mcneal catheter) Musculoskeletal: Reports: Other (Nonsurgical femur fracture of the left lower extremity) Skin: Reports: No Symptoms Psychiatric: Reports: Confusion, Other (History of schizophrenia) Neurological: Reports: No Symptoms Hematologic/Lymphatic: Reports: No Symptoms Immunologic: Reports: No Symptoms Exam - Exam Exam: See Below - Vital Signs Vital Signs: Last Vital Signs Temp 98.6 F 03/17/21 09:34 Pulse 79 03/17/21 09:34 Resp 16 03/17/21 09:34 BP 114/87 03/17/21 10:10 Pulse Ox 97 03/17/21 09:34 Weight: 63.957 kg - Exam Quality Assessment: Supplemental Oxygen (2 L per nasal cannula), Urinary Catheter (Chronic Mcneal catheter), DVT Prophylaxis (Started on Lovenox 30 mg subcutaneous every 24 hours) General: Alert, Oriented, Cooperative HEENT: Hearing Intact. No: Mucosa Moist & [place] (Very dry mucous membranes) Neck: Supple, Trachea Midline Lungs: Clear to Auscultation, Normal Respiratory Effort Cardiovascular: Regular Rate, Regular Rhythm GI/Abdominal Exam: Normal Bowel Sounds, Soft, No Distention, Tender (Prepubic tenderness with palpation) (Male) Exam: Deferred Rectal (Males) Exam: Deferred Back Exam: Normal Inspection Extremities: Normal Inspection, Normal Range of Motion, No Pedal Edema, Normal Capillary Refill, Limited Range of Motion (Left lower extremity due to femur fracture) Peripheral Pulses: 2+: Radial (L), Radial (R), Dorsalis Pedis (L), Dorsalis Pedis (R) Skin: Warm, Dry, Intact Neuro Extensive - Mental Status: Alert, Oriented x3, Normal Cognition Psychiatric: Alert, Normal Affect, Normal Mood - Patient Data Lab Results Last 24 hrs: Laboratory Results - last 24 hr 03/16/21 03/16/21 03/16/21 Range/Units 17:17 17:34 17:34 WBC 28.45 H (4.23-9.07) K/mm3 RBC 5.15 (4.63-6.08) M/mm3 Hgb 14.6 (13.7-17.5) gm/dl Hct 47.1 (40.1-51.0) % MCV 91.5 (79.0-92.2) fl MCH 28.3 (25.7-32.2) pg MCHC 31.0 L (32.2-35.5) g/dl RDW Std Deviation 58.7 H (35.1-43.9) fL Plt Count 194 (163-337) K/mm3 MPV 10.3 (9.4-12.3) fl Neut % (Auto) 90.8 H (34.0-67.9) % Lymph % (Auto) 2.7 L (21.8-53.1) % [place] % (Auto) 4.0 L (5.3-12.2) % Eos % (Auto) 2.0 (0.8-7.0) Baso % (Auto) 0.1 (0.1-1.2) % Neut # (Auto) 25.82 H (1.78-5.38) K/mm3 Lymph # (Auto) 0.77 L (1.32-3.57) K/mm3 [place] # (Auto) 1.15 H (0.30-0.82) K/mm3 Eos # (Auto) 0.56 H (0.04-0.54) K/mm3 Baso # (Auto) 0.03 (0.01-0.08) K/mm3 Manual Slide Review Abnormal smear PT (9.7-12.0) SECONDS INR Sodium 139 (136-145) mEq/L Potassium 4.5 (3.5-5.1) mEq/L Chloride 105 (98-107) mEq/L Carbon Dioxide 24 (21-32) mEq/L Anion Gap 14.5 (5-15) BUN 32 H (7-18) mg/dL Creatinine 1.2 (0.7-1.3) mg/dL Est Cr Clr Drug Dosing 46.78 mL/min Estimated GFR (MDRD) 59 (>60) mL/min BUN/Creatinine Ratio 26.7 H (14-18) Glucose 148 H (83-115) mg/dL Lactic Acid (0.4-2.0) mmol/L Calcium 10.4 H (8.5-10.1) mg/dL Magnesium (1.8-2.4) mg/dl Total Bilirubin 0.6 (0.2-1.0) mg/dL AST 21 (15-37) U/L ALT 23 (16-63) U/L Alkaline Phosphatase 110 (46-116) U/L Troponin I (0.00-0.056) ng/mL C-Reactive Protein 6.5 H* (<1.0) mg/dL NT-Pro-B Natriuret Pep (0-125) pg/mL Total Protein 7.1 (6.4-8.2) g/dl Albumin 2.9 L (3.4-5.0) g/dl Globulin 4.2 gm/dL Albumin/Globulin Ratio 0.7 L (1-2) Urine Color Brown H (Yellow) Urine Appearance Cloudy H (Clear) Urine pH 6.0 (5.0-8.0) Ur Specific [place] > or = 1.030 (1.005-1.030) Urine Protein 3+ H (Negative) Urine Glucose (UA) Negative (Negative) Urine Ketones Negative (Negative) Urine Occult Blood 3+ H (Negative) Urine Nitrite Positive H (Negative) Urine Bilirubin Negative (Negative) Urine Urobilinogen 0.2 (0.2-1.0) Ur Leukocyte Esterase 3+ H (Negative) Urine RBC 20-30 H (0-5) /hpf Urine WBC >100 H (0-5) /hpf Ur Squamous Epith Cells 0-5 (0-5) /hpf Urine Bacteria Moderate H (FEW) /hpf Urine Mucus Not seen (FEW) /hpf SARS-CoV-2 RNA (LETICIA) (NEGATIVE) MRSA (PCR) 03/16/21 03/16/21 03/16/21 Range/Units 17:34 17:34 17:59 WBC (4.23-9.07) K/mm3 RBC (4.63-6.08) M/mm3 Hgb (13.7-17.5) gm/dl Hct (40.1-51.0) % MCV (79.0-92.2) fl MCH (25.7-32.2) pg MCHC (32.2-35.5) g/dl RDW Std Deviation (35.1-43.9) fL Plt Count (163-337) K/mm3 MPV (9.4-12.3) fl Neut % (Auto) (34.0-67.9) % Lymph % (Auto) (21.8-53.1) % [place] % (Auto) (5.3-12.2) % Eos % (Auto) (0.8-7.0) Baso % (Auto) (0.1-1.2) % Neut # (Auto) (1.78-5.38) K/mm3 Lymph # (Auto) (1.32-3.57) K/mm3 [place] # (Auto) (0.30-0.82) K/mm3 Eos # (Auto) (0.04-0.54) K/mm3 Baso # (Auto) (0.01-0.08) K/mm3 Manual Slide Review PT 12.3 H (9.7-12.0) SECONDS INR 1.15 Sodium (136-145) mEq/L Potassium (3.5-5.1) mEq/L Chloride (98-107) mEq/L Carbon Dioxide (21-32) mEq/L Anion Gap (5-15) BUN (7-18) mg/dL Creatinine (0.7-1.3) mg/dL Est Cr Clr Drug Dosing mL/min Estimated GFR (MDRD) (>60) mL/min BUN/Creatinine Ratio (14-18) Glucose (83-115) mg/dL Lactic Acid (0.4-2.0) mmol/L Calcium (8.5-10.1) mg/dL Magnesium 2.1 (1.8-2.4) mg/dl Total Bilirubin (0.2-1.0) mg/dL AST (15-37) U/L ALT (16-63) U/L Alkaline Phosphatase (46-116) U/L Troponin I 0.034 (0.00-0.056) ng/mL C-Reactive Protein (<1.0) mg/dL NT-Pro-B Natriuret Pep 1855 H (0-125) pg/mL Total Protein (6.4-8.2) g/dl Albumin (3.4-5.0) g/dl Globulin gm/dL Albumin/Globulin Ratio (1-2) Urine Color (Yellow) Urine Appearance (Clear) Urine pH (5.0-8.0) Ur Specific [place] (1.005-1.030) Urine Protein (Negative) Urine Glucose (UA) (Negative) Urine Ketones (Negative) Urine Occult Blood (Negative) Urine Nitrite (Negative) Urine Bilirubin (Negative) Urine Urobilinogen (0.2-1.0) Ur Leukocyte Esterase (Negative) Urine RBC (0-5) /hpf Urine WBC (0-5) /hpf Ur Squamous Epith Cells (0-5) /hpf Urine Bacteria (FEW) /hpf Urine Mucus (FEW) /hpf SARS-CoV-2 RNA (LETICIA) (NEGATIVE) MRSA (PCR) 03/16/21 03/16/21 03/17/21 Range/Units 19:05 19:36 03:08 WBC (4.23-9.07) K/mm3 RBC (4.63-6.08) M/mm3 Hgb (13.7-17.5) gm/dl Hct (40.1-51.0) % MCV (79.0-92.2) fl MCH (25.7-32.2) pg MCHC (32.2-35.5) g/dl RDW Std Deviation (35.1-43.9) fL Plt Count (163-337) K/mm3 MPV (9.4-12.3) fl Neut % (Auto) (34.0-67.9) % Lymph % (Auto) (21.8-53.1) % [place] % (Auto) (5.3-12.2) % Eos % (Auto) (0.8-7.0) Baso % (Auto) (0.1-1.2) % Neut # (Auto) (1.78-5.38) K/mm3 Lymph # (Auto) (1.32-3.57) K/mm3 [place] # (Auto) (0.30-0.82) K/mm3 Eos # (Auto) (0.04-0.54) K/mm3 Baso # (Auto) (0.01-0.08) K/mm3 Manual Slide Review PT (9.7-12.0) SECONDS INR Sodium (136-145) mEq/L Potassium (3.5-5.1) mEq/L Chloride (98-107) mEq/L Carbon Dioxide (21-32) mEq/L Anion Gap (5-15) BUN (7-18) mg/dL Creatinine (0.7-1.3) mg/dL Est Cr Clr Drug Dosing mL/min Estimated GFR (MDRD) (>60) mL/min BUN/Creatinine Ratio (14-18) Glucose (83-115) mg/dL Lactic Acid 1.0 (0.4-2.0) mmol/L Calcium (8.5-10.1) mg/dL Magnesium (1.8-2.4) mg/dl Total Bilirubin (0.2-1.0) mg/dL AST (15-37) U/L ALT (16-63) U/L Alkaline Phosphatase (46-116) U/L Troponin I (0.00-0.056) ng/mL C-Reactive Protein (<1.0) mg/dL NT-Pro-B Natriuret Pep (0-125) pg/mL Total Protein (6.4-8.2) g/dl Albumin (3.4-5.0) g/dl Globulin gm/dL Albumin/Globulin Ratio (1-2) Urine Color (Yellow) Urine Appearance (Clear) Urine pH (5.0-8.0) Ur Specific [place] (1.005-1.030) Urine Protein (Negative) Urine Glucose (UA) (Negative) Urine Ketones (Negative) Urine Occult Blood (Negative) Urine Nitrite (Negative) Urine Bilirubin (Negative) Urine Urobilinogen (0.2-1.0) Ur Leukocyte Esterase (Negative) Urine RBC (0-5) /hpf Urine WBC (0-5) /hpf Ur Squamous Epith Cells (0-5) /hpf Urine Bacteria (FEW) /hpf Urine Mucus (FEW) /hpf SARS-CoV-2 RNA (LETICIA) Negative (NEGATIVE) MRSA (PCR) Negative 03/17/21 03/17/21 Range/Units 09:31 09:31 WBC 21.26 H (4.23-9.07) K/mm3 RBC 4.74 (4.63-6.08) M/mm3 Hgb 13.4 L (13.7-17.5) gm/dl Hct 43.8 (40.1-51.0) % MCV 92.4 H (79.0-92.2) fl MCH 28.3 (25.7-32.2) pg MCHC 30.6 L (32.2-35.5) g/dl RDW Std Deviation 58.4 H (35.1-43.9) fL Plt Count 207 (163-337) K/mm3 MPV 9.4 (9.4-12.3) fl Neut % (Auto) 89.0 H (34.0-67.9) % Lymph % (Auto) 3.7 L (21.8-53.1) % [place] % (Auto) 4.3 L (5.3-12.2) % Eos % (Auto) 2.6 (0.8-7.0) Baso % (Auto) 0.1 (0.1-1.2) % Neut # (Auto) 18.90 H (1.78-5.38) K/mm3 Lymph # (Auto) 0.79 L (1.32-3.57) K/mm3 [place] # (Auto) 0.92 H (0.30-0.82) K/mm3 Eos # (Auto) 0.56 H (0.04-0.54) K/mm3 Baso # (Auto) 0.02 (0.01-0.08) K/mm3 Manual Slide Review Abnormal smear PT (9.7-12.0) SECONDS INR Sodium 141 (136-145) mEq/L Potassium 3.9 (3.5-5.1) mEq/L Chloride 107 (98-107) mEq/L Carbon Dioxide 24 (21-32) mEq/L Anion Gap 13.9 (5-15) BUN 24 H (7-18) mg/dL Creatinine 1.0 (0.7-1.3) mg/dL Est Cr Clr Drug Dosing 58.63 mL/min Estimated GFR (MDRD) > 60 (>60) mL/min BUN/Creatinine Ratio 24.0 H (14-18) Glucose 105 (83-115) mg/dL Lactic Acid (0.4-2.0) mmol/L Calcium 9.1 (8.5-10.1) mg/dL Magnesium 1.8 (1.8-2.4) mg/dl Total Bilirubin 0.5 (0.2-1.0) mg/dL AST 17 (15-37) U/L ALT 22 (16-63) U/L Alkaline Phosphatase 95 (46-116) U/L Troponin I (0.00-0.056) ng/mL C-Reactive Protein 5.9 H* (<1.0) mg/dL NT-Pro-B Natriuret Pep (0-125) pg/mL Total Protein 6.5 (6.4-8.2) g/dl Albumin 2.5 L (3.4-5.0) g/dl Globulin 4.0 gm/dL Albumin/Globulin Ratio 0.6 L (1-2) Urine Color (Yellow) Urine Appearance (Clear) Urine pH (5.0-8.0) Ur Specific [place] (1.005-1.030) Urine Protein (Negative) Urine Glucose (UA) (Negative) Urine Ketones (Negative) Urine Occult Blood (Negative) Urine Nitrite (Negative) Urine Bilirubin (Negative) Urine Urobilinogen (0.2-1.0) Ur Leukocyte Esterase (Negative) Urine RBC (0-5) /hpf Urine WBC (0-5) /hpf Ur Squamous Epith Cells (0-5) /hpf Urine Bacteria (FEW) /hpf Urine Mucus (FEW) /hpf SARS-CoV-2 RNA (LETICIA) (NEGATIVE) MRSA (PCR) Result Diagrams: 03/17/21 09:31 03/17/21 09:31 Yan Results Last 24 hrs: Microbiology 03/16/21 17:17 Urine Culture - Preliminary Urine, Mcneal Cath (Indwelling) Gram Negative Rods 03/16/21 19:56 Anaerobic Blood Culture - Final Blood - Venous - Lab Draw 03/16/21 19:05 Anaerobic Blood Culture - Final Blood - Venous Sepsis Event Note - Evaluation Sepsis Screening Result: No Definite Risk - Focused Exam Vital Signs: Vital Signs Temp Pulse Resp BP Pulse Ox Pulse Ox 03/17/21 10:10 114/87 03/17/21 09:34 98.6 F 79 16 114/87 97 03/17/21 09:28 96 03/16/21 23:58 98.8 F 75 14 112/77 95 - Problem List (1) Leukocytosis SNOMED Code(s): 874049813, 617991259 ICD Code: D72.829 - ELEVATED WHITE BLOOD CELL COUNT, UNSPECIFIED Status: Acute Priority: High Current Visit: Yes Qualifiers: Leukocytosis type: bandemia Qualified Code(s): D72.825 - Bandemia (2) Urinary tract infection associated with catheterization of urinary tract SNOMED Code(s): 838630595 ICD Code: T83.511A - I/I REACT D/T INDWELLING URETHRAL CATHETER, INIT; N39.0 - URINARY TRACT INFECTION, SITE NOT SPECIFIED Status: Acute Priority: High Current Visit: Yes Qualifiers: Indwelling urinary catheter type: indwelling urethral catheter Encounter type: initial encounter Qualified Code(s): T83.511A - Infection and inflammatory reaction due to indwelling urethral catheter, initial encounter; N39.0 - Urinary tract infection, site not specified (3) Femur fracture, left SNOMED Code(s): 38482398, 97135478658938798 ICD Code: S72.92XA - UNSP FRACTURE OF LEFT FEMUR, INIT ENCNTR FOR CLOSED FRACTURE Status: Chronic Priority: Low Current Visit: Yes Qualifiers: Encounter type: initial encounter Femur location: neck, unspecified portion Fracture type: closed Qualified Code(s): S72.002A - Fracture of unspecified part of neck of left femur, initial encounter for closed fracture Problem List Initiated/Reviewed/Updated: Yes Orders Last 24hrs: Diagnosis: Stroke: No - Discharge Data Discharge Date: 03/20/21 Discharge Disposition: DC/Tfer to SNF 03 Condition: Good - Referral to Home Health Primary Care Physician: Baudilio Warren MD - Discharge Diagnosis/Problem(s) (1) Schizophrenia SNOMED Code(s): 55980165 ICD Code: F20.9 - SCHIZOPHRENIA, UNSPECIFIED Status: Chronic Priority: Low Current Visit: Yes Qualifiers: Schizophrenia type: paranoid schizophrenia Qualified Code(s): F20.0 - Paranoid schizophrenia (2) Urinary tract infection associated with catheterization of urinary tract SNOMED Code(s): 491102546 ICD Code: T83.511A - I/I REACT D/T INDWELLING URETHRAL CATHETER, INIT; N39.0 - URINARY TRACT INFECTION, SITE NOT SPECIFIED Status: Acute Priority: High Current Visit: Yes Onset Date: ~03/17/21 Problem Details: switch to po antibiotics consider cipro for pseudomonas if treatment to be continued bactrum and or augmentin otherwise. blood culture s hominis contaminant. Qualifiers: Indwelling urinary catheter type: indwelling urethral catheter Encounter type: initial encounter Qualified Code(s): T83.511A - Infection and inflammatory reaction due to indwelling urethral catheter, initial encounter; N39.0 - Urinary tract infection, site not specified (3) Femur fracture, left SNOMED Code(s): 23256843, 65320432488062369 ICD Code: S72.92XA - UNSP FRACTURE OF LEFT FEMUR, INIT ENCNTR FOR CLOSED FRACTURE Status: Chronic Priority: High Current Visit: Yes Onset Date: ~ 03/17/21 Problem Details: patient unable to weight bear and or participate in rehab , orthopedics following . not considered a good candidate for thr.conservative treatment favored. Qualifiers: Encounter type: subsequent encounter Femur location: neck, unspecified portion Fracture type: closed Fracture healing: with delayed healing Qualified Code(s): S72.002G - Fracture of unspecified part of neck of left femur, subsequent encounter for closed fracture with delayed healing (4) Hypokalemia SNOMED Code(s): 65773550 ICD Code: E87.6 - HYPOKALEMIA Status: Acute Priority: High Current Visit: Yes (5) Leukocytosis SNOMED Code(s): 241972977, 624660526 ICD Code: D72.829 - ELEVATED WHITE BLOOD CELL COUNT, UNSPECIFIED Status: Acute Priority: Low Current Visit: Yes Onset Date: ~03/17/21 Qualifiers: Leukocytosis type: bandemia Qualified Code(s): D72.825 - Bandemia - Patient Summary/Data Consults: Consultations 03/17/21 12:34 PT Evaluation and Treatment [CONS] Routine 03/17/21 12:35 OT Evaluation and Treatment [CONS] Routine - Patient Instructions Diet: Usual Diet as Tolerated, Diabetic Diet, Mechanical Soft Activity: As Tolerated Driving: Do Not Drive Showering/Bathing: May Shower Notify Provider of: Fever, Increased Pain, Nausea and/or Vomiting Other/Special Instructions: Follow-up with primary care provider within 7 to 10 days of discharge, sooner if needed. Resume home medications as ordered. Continue PT/OT at SNF. Follow-up with orthopedics regarding femur/pelvic fracture. You are prescribed an antibiotic for urinary tract infection. You should take this twice daily as prescribed. Continue until pills are gone, even if you feel 100% better. Mcneal care as per before. Recommend patient follow- up with urology in the future regarding his chronic Mcneal. Should symptoms return or worsen contact primary care provider or return to the emergency room. - Discharge Plan *PRESCRIPTION DRUG MONITORING PROGRAM REVIEWED*: Not Applicable *COPY OF PRESCRIPTION DRUG MONITORING REPORT IN PATIENT HOANG: Not Applicable Prescriptions/Med Rec: Amoxicillin/Clavulanate K [Augmentin 875-125 MG] 1 tab PO Q12HR #10 tablet Potassium Chloride [Klor-Con M20] 20 meq PO DAILY #5 tab.er Home Medications: Home Meds Acetaminophen 650 mg PO Q4HR PRN 01/06/21 [History] Celecoxib [CeleBREX] 200 mg PO DAILY 01/06/21 [History] Cholecalciferol (Vitamin D3) [Vitamin D3] 2,000 unit PO DAILY 01/06/21 [History] Docusate Sodium [Colace] 100 mg PO DAILY 01/06/21 [History] FLUoxetine [PROzac] 10 mg PO DAILY 01/06/21 [History] Hydroxyurea [Hydrea] 500 mg PO ASDIRECTED 01/06/21 [History] Ondansetron [Zofran] 4 mg PO Q6H PRN 01/06/21 [History] Psyllium Husk [Metamucil] 1 scoop PO ASDIRECTED 01/06/21 [History] amLODIPine [Norvasc] 10 mg PO DAILY 01/06/21 [History] atorvaSTATin [Lipitor] 40 mg PO DAILY 01/06/21 [History] Morphine [Morphine 20 MG/ML Soln] 0.25 ml PO Q3H PRN 03/16/21 [History] haloperidoL [Haldol] 5 mg PO Q8H PRN 03/16/21 [History] Menthol/Zinc Oxide [Calmoseptine] 1 applic TOP BID 03/17/21 [History] Montelukast [Singulair] 10 mg PO DAILY 03/17/21 [History] Amoxicillin/Clavulanate K [Augmentin 875-125 MG] 1 tab PO Q12HR #10 tablet 03/20/21 [Rx] Potassium Chloride [Klor-Con M20] 20 meq PO DAILY #5 tab.er 03/20/21 [Rx] Oxygen Therapy Mode: Room Air Patient Handouts: Bacteremia, Adult, Sepsis, Self Care, Adult Referrals: Baudilio Warren MD [Primary Care Provider] - 03/27/21 11:30 am - Discharge Summary/Plan Comment DC Time >30 min.: Yes - General Info Date of Service: 03/20/21 Admission Dx/Problem (Free Text: Admission Diagnosis/Problem Admission Diagnosis/Problem Bacteremia Subjective Update: 03/18/21 afebrile vss. denies back flank or abd pain. no sweats and slept well last night . p.e features of mild mouth and blinking movements. affect not anxious , comfortable and alert. abd benign . mcneal draining clear urine. i.v sight clean lab gram neg ti in urine prob. pseudomonas and klebsiella . blood culture 12/05 for gram pos. cocci. other organisms being worked up for i.d. . 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 patient received full dose gent on admission then switched to rocephin. follow up blood c/s ordered. assess: uti sec. 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 schizophrenia . stable plan awaiting i.d form blood cultures and urine cultures plus spec. but good clinical response to rocephin . other options for indwelling mcneal cath explored.? cont supportive care for schizophrenia . boh . 03/19/21 afebrile doing very well / mcneal changed out and draining clear fluid . left femur fx. mildly painful when moving labs improved crp 2.2 k low 3.2 and ordering oral k . p.e. unchanged, left leg not warm or swollen and tenderness noted mid shaft with movement passively of leg. no signs dvt . assess 1)uti klebsiella and pseudomonas both growing and sensitive to cipro but resistance issues make use of flouroquinalone less atractive. consider options bactrim and or augmentin . dc planning underway . 2) femur fx left with very decreased mobility on lovenox prophylaxis for dvt. 3) schiophrenia doing well on current meds. plan hep lock i.v replace k. switch to bactrum and consider reculture in one week sec. to pseudomonas single drug treatment x 4 days (rocephin). 4) cont longer term dvt prophylaxis . [facility] Discharge Summary Patient Name: GUADALUPE RAYA Date of : 1945 Patient Status: Inpatient Attending Provider: Rodríguez Peacock Date: 03/20/21 13:18 Initialization Date: 03/20/21 13:18 Discharge Summary - Hospital Course Free Text/Narrative:: 03/20/21 doing very well overall. vss/afebrile and switched to p.o augmentin this am. weaned off o2 and sats stable 92-97%. mcneal draining without clots and or debri. schizophrenia very stable . leukocytosis much decreased. blood cultures cont. and urine grew out klebsiella and pseudomonas in mod. amounts and treated with 4 days rocephin now switched to augmentin. femur fracture non surgical and in conservative p.t to be continued. meds reviewed and on motrin for pain with prn morphine and requiring once or twice daily . reg diet. dnr/dni. follow up on rounds with DR Lind transfer back to [facility] Initial Comments: Functional Status: Reports: Pain Controlled - Review of Systems General: Reports: No Symptoms HEENT: Reports: No Symptoms Pulmonary: Reports: No Symptoms Cardiovascular: Reports: No Symptoms Gastrointestinal: Reports: No Symptoms Genitourinary: Reports: No Symptoms Musculoskeletal: Reports: No Symptoms, Leg Pain Skin: Reports: No Symptoms Neurological: Reports: No Symptoms Psychiatric: Reports: No Symptoms - Patient Data Vitals - Most Recent: Last Vital Signs Temp 36.3 C 03/20/21 08:39 Pulse 66 03/20/21 10:24 Resp 16 03/20/21 10:24 BP 121/66 03/20/21 10:24 Pulse Ox 100 03/20/21 10:24 Weight - Most Recent: 64.682 kg I&O - Last 24 hours: Intake & Output 03/19/21 03/20/21 03/20/21 22:59 06:59 14:59 Intake Total 1315 300 760 Output Total 600 750 625 Balance 715 -450 135 Lab Results - Last 24 hrs: Laboratory Results - last 24 hr 03/20/21 Range/Units 11:30 SARS-CoV-2 RNA (LETICIA) Negative (NEGATIVE) YAN Results - Last 24 hrs: Microbiology 03/16/21 17:17 Urine Culture - Final Urine, Mcneal Cath (Indwelling) Klebsiella Pneumoniae Pseudomonas Aeruginosa Proteus Mirabilis 03/18/21 10:10 Aerobic Blood Culture - Preliminary Blood - Venous - Lab Draw NO GROWTH AFTER 2 DAYS Anaerobic Blood Culture - Final 03/18/21 09:45 Aerobic Blood Culture - Preliminary Blood - Venous NO GROWTH AFTER 2 DAYS Anaerobic Blood Culture - Preliminary NO GROWTH AFTER 2 DAYS 03/16/21 19:56 Aerobic Blood Culture - Preliminary Blood - Venous - Lab Draw NO GROWTH AFTER 3 DAYS Anaerobic Blood Culture - Final Med Orders - Current: Current Medications Acetaminophen (Acetaminophen 325 Mg Tab) 650 mg PO Q4H PRN PRN Reason: Pain Amlodipine Besylate (Amlodipine 10 Mg Tab) 10 mg PO DAILY [facility] Last Admin: 03/20/21 08:36 Dose: 10 mg Documented by: Amoxicillin/Clavulanate Potassium (Amoxicillin/Clavulanate K 875-125 Mg Tab) 1 tab PO Q12HR [facility] Last Admin: 03/20/21 08:36 Dose: 1 tab Documented by: Atorvastatin Calcium (Atorvastatin 40 Mg Tab) 40 mg PO BEDTIME [facility] Last Admin: 03/19/21 21:09 Dose: Not Given Documented by: Celecoxib (Celecoxib 100 Mg Cap) 200 mg PO DAILY [facility] Last Admin: 03/20/21 08:36 Dose: 200 mg Documented by: Cholecalciferol (Cholecalciferol (Vitamin D3) 25 Mcg Tab) 50 mcg PO DAILY [facility] Last Admin: 03/20/21 08:35 Dose: 50 mcg Documented by: Docusate Sodium (Docusate Sodium 100 Mg Cap) 100 mg PO DAILY [facility] Last Admin: 03/20/21 08:36 Dose: 100 mg Documented by: Enoxaparin Sodium (Enoxaparin 30 Mg/0.3 Ml Syringe) 30 mg SUBCUT Q24H [facility] Last Admin: 03/20/21 10:24 Dose: 30 mg Documented by: Fluoxetine HCl (Fluoxetine 10 Mg Cap) 10 mg PO DAILY [facility] Last Admin: 03/20/21 08:36 Dose: 10 mg Documented by: Haloperidol (Haloperidol 5 Mg Tab) 5 mg PO Q8H PRN PRN Reason: delirium or terminal restlessn Hydromorphone HCl (Hydromorphone 1 Mg/Ml Syringe) 1 mg IVPUSH Q2H PRN PRN Reason: Pain Hydroxyurea (Hydroxyurea 500 Mg Cap) 500 mg PO MoTuWeThFr [facility] Last Admin: 03/20/21 10:24 Dose: 500 mg Documented by: Montelukast Sodium (Montelukast 10 Mg Tab) 10 mg PO DAILY [facility] Last Admin: 03/20/21 08:36 Dose: 10 mg Documented by: Morphine Sulfate (Morphine 10 Mg/0.5 Ml Oral Syringe) 5 mg PO Q3H PRN PRN Reason: Pain Ondansetron HCl (Ondansetron 4 Mg/2 Ml Sdv) 4 mg IVPUSH Q6H PRN PRN Reason: Nausea/Vomiting Ondansetron HCl (Ondansetron 4 Mg Tab.Dis) 4 mg PO Q6H PRN PRN Reason: Nausea Potassium Chloride (Potassium Chloride 20 Meq Tab.Er) 20 meq PO DAILY [facility] Last Admin: 03/20/21 08:36 Dose: 20 meq Documented by: Psyllium Husk (Psyllium Husk Powder Sugar Free 5.85 Gm Packet) 1 pkt PO DAILY [facility] Last Admin: 03/20/21 08:39 Dose: 1 pkt Documented by: Discontinued Medications Ceftriaxone Sodium 2 gm/ (Sodium Chloride) 100 mls @ 200 mls/hr IV ONETIME ONE Stop: 03/16/21 19:12 Last Admin: 03/16/21 19:54 Dose: 200 mls/hr Documented by: Dextrose/Sodium Chloride (Dextrose 5%-Normal Saline) 1,000 mls @ 999 mls/hr IV ASDIRECTED [facility] Last Admin: 03/16/21 19:53 Dose: 999 mls/hr Documented by: Ceftriaxone Sodium 1 gm/ (Sodium Chloride) 100 mls @ 200 mls/hr IV Q24H [facility] Last Admin: 03/18/21 20:20 Dose: 200 mls/hr Documented by: Sodium Chloride (Normal Saline) 1,000 mls @ 100 mls/hr IV ASDIRECTED [facility] Last Admin: 03/19/21 09:05 Dose: 100 mls/hr Documented by: Magnesium Sulfate (Magnesium Sulfate In Water 2 Gm/50 Ml) 2 gm in 50 mls @ 25 mls/hr IV ONETIME ONE Stop: 03/18/21 16:53 Last Admin: 03/18/21 15:05 Dose: 25 mls/hr Documented by: Levofloxacin (Levofloxacin 500 Mg Tab) 500 mg PO ONETIME ONE Stop: 03/16/21 17:13 Last Admin: 03/16/21 18:08 Dose: 500 mg Documented by: - Exam General: Reports: Alert, Oriented HEENT: Reports: Pupils Equal, Pupils Reactive, EOMI, Mucous Membr. Moist/[place] Neck: Reports: Supple Lungs: Reports: Clear to Auscultation, Normal Respiratory Effort Cardiovascular: Reports: Regular Rate, Regular Rhythm GI/Abdominal Exam: Normal Bowel Sounds, Soft, Non-Tender, No Organomegaly, No Distention, No Abnormal Bruit, No Mass, Pelvis Stable (Male) Exam: Normal Inspection. No: No Hernia, Normal Prostate, Circumcised Rectal (Males) Exam: Normal Exam, Prostate Normal. No: Normal Rectal Tone Back Exam: Reports: Normal Inspection, Full Range of Motion Extremities: Normal Inspection, Normal Range of Motion, Non-Tender, No Pedal Edema, Normal Capillary Refill Skin: Reports: Warm, Dry, Intact Wound/Incisions: Reports: Healing Well Neurological: Reports: No New Focal Deficit Psy/Mental Status: Reports: Alert, Normal Affect, Normal Mood
== END 2021-03-20 14:45 | DRG 699 ==
LOC: JD.ED 15:51 → JD.ICU 21:00 → JD.MS 21:01
PROVIDERS: ADMIT Internal Medicine; ATTEND Internal Medicine
DX: T83.511A Infection and inflammatory reaction due to indwelling urethral catheter, initial encounter (principal); I13.0 Hypertensive heart and chronic kidney disease with heart failure and stage 1 through stage 4 chronic kidney disease, or unspecified chronic kidney disease; S72.002D Fracture of unspecified part of neck of left femur, subsequent encounter for closed fracture with routine healing; F20.9 Schizophrenia, unspecified; N39.0 Urinary tract infection, site not specified; I10 Essential (primary) hypertension; N40.0 Benign prostatic hyperplasia without lower urinary tract symptoms; E87.6 Hypokalemia; F03.90 Unspecified dementia, unspecified severity, without behavioral disturbance, psychotic disturbance, mood disturbance, and anxiety; D72.825 Bandemia; B96.5 Pseudomonas (aeruginosa) (mallei) (pseudomallei) as the cause of diseases classified elsewhere; E11.9 Type 2 diabetes mellitus without complications; H54.7 Unspecified visual loss; D45 Polycythemia vera; I48.91 Unspecified atrial fibrillation; I50.9 Heart failure, unspecified; E78.00 Pure hypercholesterolemia, unspecified; I25.10 Atherosclerotic heart disease of native coronary artery without angina pectoris; K59.09 Other constipation; N18.9 Chronic kidney disease, unspecified; N31.9 Neuromuscular dysfunction of bladder, unspecified; R33.8 Other retention of urine; N40.1 Benign prostatic hyperplasia with lower urinary tract symptoms; G89.29 Other chronic pain; M54.9 Dorsalgia, unspecified; M81.0 Age-related osteoporosis without current pathological fracture; F32.9 Major depressive disorder, single episode, unspecified; E11.22 Type 2 diabetes mellitus with diabetic chronic kidney disease; E21.3 Hyperparathyroidism, unspecified; Z20.822 Contact with and (suspected) exposure to COVID-19; B96.1 Klebsiella pneumoniae [K. pneumoniae] as the cause of diseases classified elsewhere; Z79.899 Other long term (current) drug therapy; I25.2 Old myocardial infarction; Z86.718 Personal history of other venous thrombosis and embolism; Z79.01 Long term (current) use of anticoagulants; Z87.442 Personal history of urinary calculi; Z87.440 Personal history of urinary (tract) infections
CPT/HCPCS: 36415; 71045; 80053; 81001; 83605; 83735; 83880; 84484; 85025; 85610; 86140; 87040 ×2; 87086; 87088 ×3; 87184 ×3; 87186 ×3; 93005; 96365; 99285; A9270; J0696; J7042; U0002; 51702; 80048; 87641; 93010; 94761; 97110-GP; 97162-GP; 97167-GO; 99284; J1650; J3475; J7030

== ENCOUNTER 2021-08-20 23:20 | Inpatient (IN) | payer MEDICARE, MEDICAID ==
[2021-08-20] MEDS ORDERED: Sodium Chloride 0.9% 1,000 ML IV SCH (23:45)
[2021-08-20] MEDS ORDERED: Sodium Chloride 0.9% 10 ML Syringe FLUSH PRN (23:55)
[2021-08-21] MEDS ORDERED: Sodium Chloride 0.9% 1,000 ML IV ONE (01:31)
[2021-08-21] MEDS ORDERED: Norepinephrine 4 MG in Dextrose 5% in Water 246 ML IV SCH ×2 (02:45)
[2021-08-21] MEDS ORDERED: cefTRIAXone 2 GM in Sodium Chloride 0.9% 100 ML IV ONE (03:00)
[2021-08-21] MEDS: Potassium Chloride 10 MEQ in Premix Bag 1 BAG IV SCH ×4 (03:11→06:54)
--- NOTE | 2021-08-21 03:23 | EDM.PDOC ---
ED HPI GENERAL MEDICAL PROBLEM - General Chief Complaint: Genitourinary Problem Stated Complaint: [facility] Time Seen by Provider: 08/20/21 23:33 Source of Information: Reports: EMS, [facility] Records History Limitations: Reports: Altered Mental Status - History of Present Illness INITIAL COMMENTS - FREE TEXT/NARRATIVE: The patient presents by [facility] from [facility] for a mcneal cath problem. The patient is at [facility] for dementia and an a femur fracture. He has a mcneal cath and today they changed it and got no urine back. He had no mcneal when he arrived and he was tachycardic with a low blood pressure. The patient has not been eating or drinking much. He has no cough, or diarrhea. He will answer some questions but he is confused due to the dementia. Onset: Sudden Duration: Hour(s): Severity: Moderate Improves with: Reports: None Worsens with: Reports: None Associated Symptoms: Denies: Chest Pain, Cough, Fever/Chills, Headaches, Nausea/Vomiting, Shortness of Breath - Related Data Allergies Allergy/AdvReac Type Severity Reaction Status Date / Time No Known Allergies Allergy Verified 03/16/21 16:04 Home Meds: Home Meds Acetaminophen 650 mg PO Q4HR PRN 01/06/21 [History] Celecoxib [CeleBREX] 200 mg PO DAILY 01/06/21 [History] Cholecalciferol (Vitamin D3) [Vitamin D3] 2,000 unit PO DAILY 01/06/21 [History] Docusate Sodium [Colace] 100 mg PO DAILY 01/06/21 [History] FLUoxetine [PROzac] 10 mg PO DAILY 01/06/21 [History] Hydroxyurea [Hydrea] 500 mg PO ASDIRECTED 01/06/21 [History] Ondansetron [Zofran] 4 mg PO Q6H PRN 01/06/21 [History] Psyllium Husk [Metamucil] 1 scoop PO ASDIRECTED 01/06/21 [History] amLODIPine [Norvasc] 10 mg PO DAILY 01/06/21 [History] atorvaSTATin [Lipitor] 40 mg PO DAILY 01/06/21 [History] Morphine [Morphine 20 MG/ML Soln] 0.25 ml PO Q3H PRN 03/16/21 [History] haloperidoL [Haldol] 5 mg PO Q8H PRN 03/16/21 [History] Menthol/Zinc Oxide [Calmoseptine] 1 applic TOP BID 03/17/21 [History] Montelukast [Singulair] 10 mg PO DAILY 03/17/21 [History] Amoxicillin/Clavulanate K [Augmentin 875-125 MG] 1 tab PO Q12HR #10 tablet 03/20/21 [Rx] Potassium Chloride [Klor-Con M20] 20 meq PO DAILY #5 tab.er 03/20/21 [Rx] Past Medical History HEENT History: Reports: Impaired Vision Other HEENT History: chronic rhinitis Cardiovascular History: Reports: Afib, Blood Clots/VTE/DVT, CAD, Heart Failure, High Cholesterol, Hypertension, MD, Other (See Below) Other Cardiovascular History: intracardiac thrombosis; roasterman anticoagulation, hyperkalemia Respiratory History: Reports: Other (See Below) Other Respiratory History: pleural effusions Gastrointestinal History: Reports: Chronic Constipation Genitourinary History: Reports: BPH, Chronic Renal Insuffiency, Neurogenic Bladder, Renal Calculus, Retention, Urinary, UTI, Recurrent, Other (See Below) Other Genitourinary History: chronic indwelling catheter Musculoskeletal History: Reports: Back Pain, Chronic, Fracture, Osteoporosis, Other (See Below) Other Musculoskeletal History: L femur fx (not a candidate for surgery) Neurological History: Reports: Other (See Below) Other Neuro History: vascular dementia with behavioral disturbance; dyskinesia Psychiatric History: Reports: Dementia, Depression, Psychosis, Schizophrenia, Other (See Below) Other Psychiatric History: insomnia Endocrine/Metabolic History: Reports: Diabetes, Type II, Hyperparathyroidism, Other (See Below) Other Endocrine/Metabolic History: hyperkalemia; hypercalcemia Hematologic History: Reports: Anticoagulation Therapy, Polycythemia - Past Surgical History Male Surgical History: Reports: Renal Calculus Social & Family History - Tobacco Use Tobacco Use Status *Q: Unknown Ever Used Tobacco Second Hand Smoke Exposure: No - Caffeine Use Caffeine Use: Reports: Coffee - Recreational Drug Use Recreational Drug Use: No - Living Situation & Occupation Living situation: Reports: Extended Care Facility (Currently a resident of [facility] in [place].) Occupation: Retired ED ROS GENERAL - Review of Systems Review Of Systems: See Below Constitutional: Reports: Malaise, Weakness, Fatigue. Denies: Fever, Chills HEENT: Reports: No Symptoms Respiratory: Reports: No Symptoms Cardiovascular: Reports: No Symptoms Endocrine: Reports: No Symptoms GI/Abdominal: Reports: No Symptoms : Reports: Other (mcneal cath problems) ED EXAM, GI/ABD - Physical Exam Exam: See Below Exam Limited By: Altered Mental Status (patient has dementia) General Appearance: Alert, No Apparent Distress Ears: Normal External Exam Nose: Normal Inspection Head: Atraumatic, Normocephalic Neck: Normal Inspection, Supple, Non-Tender Respiratory/Chest: No Respiratory Distress, Decreased Breath Sounds Cardiovascular: No Edema, No Murmur, Tachycardia GI/Abdominal Exam: Soft, Non-Tender, No Organomegaly, No Mass, Other (patient is very thin) Back Exam: Normal Inspection Extremities: Normal Inspection #1 Interpretation EKG Date: 08/20/21 Time: 23:46 Rhythm: Other (sinus tachycardia) Rate (Beats/Min): 123 [place]: LAD-Left [place] Deviation P-Wave: Present QRS: RBBB ST-T: Normal QT: Prolonged Course - Vital Signs Last Recorded V/S: Last Vital Signs Temp 98 F 08/20/21 23:21 Pulse 82 08/21/21 03:31 Resp 18 08/21/21 03:31 BP 84/75 L 08/21/21 03:31 Pulse Ox 98 08/21/21 03:31 - Orders/Labs/Meds Orders: Active Orders 24 hr Category Date Time Status Cardiac Monitoring [RC] . DIRECTED Care 08/20/21 23:55 Active Insert Mcneal Catheter [Insert Urinary Catheter] [OM.PC] Care 08/21/21 01:45 Ordered Q24H Peripheral IV Care [RC] . DIRECTED Care 08/20/21 23:55 Active Urinary Catheter Assessment [RC] ASDIRECTED Care 08/21/21 01:41 Active Chest 1V Frontal [CR] Stat Exams 08/20/21 23:57 Taken BLOOD CULTURE [MREF] Stat Lab 08/20/21 23:57 Received BLOOD CULTURE [MREF] Stat Lab 08/20/21 23:57 Received Sodium Chloride 0.9% [Normal Saline] 1,000 ml Med 08/20/21 23:45 Active IV .BOLUS Sodium Chloride 0.9% [Normal Saline] 1,000 ml Med 08/21/21 06:15 Active IV ASDIRECTED Sodium Chloride 0.9% [Saline Flush] Med 08/20/21 23:55 Active 10 ml FLUSH ASDIRECTED PRN Blood Culture x2 Reflex Set [OM.PC] Stat Oth 08/20/21 23:57 Ordered Comfort Measures [OM.PC] Routine Oth 08/21/21 03:38 Ordered Peripheral IV Insertion Adult [OM.PC] Stat Oth 08/20/21 23:55 Ordered Medication Orders Sodium Chloride (Normal Saline) 1,000 mls @ 1,000 mls/hr IV .BOLUS DARRELL Last Admin: 08/21/21 00:03 Dose: 1,000 mls/hr Documented by: PAT Sodium Chloride (Normal Saline) 1,000 mls @ 150 mls/hr IV ASDIRECTED DARRELL Sodium Chloride (Sodium Chloride 0.9% 10 Ml Syringe) 10 ml FLUSH ASDIRECTED PRN PRN Reason: Keep Vein Open Last Admin: 08/21/21 00:03 Dose: 10 ml Documented by: PAT Labs: Laboratory Tests 08/21/21 08/21/21 08/21/21 Range/Units 00:00 01:00 01:00 WBC 62.27 H (4.23-9.07) K/mm3 RBC 2.84 L (4.63-6.08) M/mm3 Hgb 10.4 L D (13.7-17.5) gm/dl Hct 32.0 L (40.1-51.0) % MCV 112.7 H D (79.0-92.2) fl MCH 36.6 H (25.7-32.2) pg MCHC 32.5 (32.2-35.5) g/dl RDW Std Deviation 57.9 H (35.1-43.9) fL Plt Count 247 (163-337) K/mm3 MPV 9.8 (9.4-12.3) fl Neut % (Auto) 93.0 H (34.0-67.9) % Lymph % (Auto) 0.8 L (21.8-53.1) % [place] % (Auto) 2.1 L (5.3-12.2) % Eos % (Auto) 0.2 L (0.8-7.0) Baso % (Auto) 0.1 (0.1-1.2) % Neut # (Auto) 57.91 H (1.78-5.38) K/mm3 Lymph # (Auto) 0.47 L (1.32-3.57) K/mm3 [place] # (Auto) 1.31 H (0.30-0.82) K/mm3 Eos # (Auto) 0.15 (0.04-0.54) K/mm3 Baso # (Auto) 0.07 (0.01-0.08) K/mm3 Manual Slide Review Abnormal smear PT 13.0 H (9.7-12.0) SECONDS INR 1.18 APTT 33.0 H (21.7-31.4) SECONDS Sodium (136-145) mEq/L Potassium (3.5-5.1) mEq/L Chloride (98-107) mEq/L Carbon Dioxide (21-32) mEq/L Anion Gap (5-15) BUN (7-18) mg/dL Creatinine (0.7-1.3) mg/dL Est Cr Clr Drug Dosing Estimated GFR (MDRD) (>60) mL/min BUN/Creatinine Ratio (14-18) Glucose (70-99) mg/dL Lactic Acid (0.4-2.0) mmol/L Calcium (8.5-10.1) mg/dL Total Bilirubin (0.2-1.0) mg/dL AST (15-37) U/L ALT (16-63) U/L Alkaline Phosphatase (46-116) U/L Troponin I (0.00-0.056) ng/mL C-Reactive Protein (<1.0) mg/dL Total Protein (6.4-8.2) g/dl Albumin (3.4-5.0) g/dl Globulin gm/dL Albumin/Globulin Ratio (1-2) Lipase (73-393) U/L Urine Color (Yellow) Urine Appearance (Clear) Urine pH (5.0-8.0) Ur Specific [place] (1.005-1.030) Urine Protein (Negative) Urine Glucose (UA) (Negative) Urine Ketones (Negative) Urine Occult Blood (Negative) Urine Nitrite (Negative) Urine Bilirubin (Negative) Urine Urobilinogen (0.2-1.0) Ur Leukocyte Esterase (Negative) Urine RBC (0-5) /hpf Urine WBC (0-5) /hpf Ur Epithelial Cells (0-5) /hpf Urine Bacteria (FEW) /hpf Urine Mucus (FEW) /hpf SARS-CoV-2 RNA (LETICIA) Negative (NEGATIVE) 08/21/21 08/21/21 08/21/21 Range/Units 01:00 01:00 03:05 WBC (4.23-9.07) K/mm3 RBC (4.63-6.08) M/mm3 Hgb (13.7-17.5) gm/dl Hct (40.1-51.0) % MCV (79.0-92.2) fl MCH (25.7-32.2) pg MCHC (32.2-35.5) g/dl RDW Std Deviation (35.1-43.9) fL Plt Count (163-337) K/mm3 MPV (9.4-12.3) fl Neut % (Auto) (34.0-67.9) % Lymph % (Auto) (21.8-53.1) % [place] % (Auto) (5.3-12.2) % Eos % (Auto) (0.8-7.0) Baso % (Auto) (0.1-1.2) % Neut # (Auto) (1.78-5.38) K/mm3 Lymph # (Auto) (1.32-3.57) K/mm3 [place] # (Auto) (0.30-0.82) K/mm3 Eos # (Auto) (0.04-0.54) K/mm3 Baso # (Auto) (0.01-0.08) K/mm3 Manual Slide Review PT (9.7-12.0) SECONDS INR APTT (21.7-31.4) SECONDS Sodium 138 (136-145) mEq/L Potassium 2.9 L (3.5-5.1) mEq/L Chloride 106 (98-107) mEq/L Carbon Dioxide 16 L (21-32) mEq/L Anion Gap 18.9 H (5-15) BUN 43 H D (7-18) mg/dL Creatinine 3.0 H D (0.7-1.3) mg/dL Est Cr Clr Drug Dosing TNP Estimated GFR (MDRD) 21 (>60) mL/min BUN/Creatinine Ratio 14.3 (14-18) Glucose 167 H (70-99) mg/dL Lactic Acid 7.0 H* 4.9 H* (0.4-2.0) mmol/L Calcium 10.1 (8.5-10.1) mg/dL Total Bilirubin 0.7 (0.2-1.0) mg/dL AST 18 (15-37) U/L ALT 19 (16-63) U/L Alkaline Phosphatase 92 (46-116) U/L Troponin I 0.154 H* (0.00-0.056) ng/mL C-Reactive Protein 7.2 H* (<1.0) mg/dL Total Protein 6.0 L (6.4-8.2) g/dl Albumin 2.3 L (3.4-5.0) g/dl Globulin 3.7 gm/dL Albumin/Globulin Ratio 0.6 L (1-2) Lipase 75 (73-393) U/L Urine Color (Yellow) Urine Appearance (Clear) Urine pH (5.0-8.0) Ur Specific [place] (1.005-1.030) Urine Protein (Negative) Urine Glucose (UA) (Negative) Urine Ketones (Negative) Urine Occult Blood (Negative) Urine Nitrite (Negative) Urine Bilirubin (Negative) Urine Urobilinogen (0.2-1.0) Ur Leukocyte Esterase (Negative) Urine RBC (0-5) /hpf Urine WBC (0-5) /hpf Ur Epithelial Cells (0-5) /hpf Urine Bacteria (FEW) /hpf Urine Mucus (FEW) /hpf SARS-CoV-2 RNA (LETICIA) (NEGATIVE) 08/21/21 Range/Units 06:12 WBC (4.23-9.07) K/mm3 RBC (4.63-6.08) M/mm3 Hgb (13.7-17.5) gm/dl Hct (40.1-51.0) % MCV (79.0-92.2) fl MCH (25.7-32.2) pg MCHC (32.2-35.5) g/dl RDW Std Deviation (35.1-43.9) fL Plt Count (163-337) K/mm3 MPV (9.4-12.3) fl Neut % (Auto) (34.0-67.9) % Lymph % (Auto) (21.8-53.1) % [place] % (Auto) (5.3-12.2) % Eos % (Auto) (0.8-7.0) Baso % (Auto) (0.1-1.2) % Neut # (Auto) (1.78-5.38) K/mm3 Lymph # (Auto) (1.32-3.57) K/mm3 [place] # (Auto) (0.30-0.82) K/mm3 Eos # (Auto) (0.04-0.54) K/mm3 Baso # (Auto) (0.01-0.08) K/mm3 Manual Slide Review PT (9.7-12.0) SECONDS INR APTT (21.7-31.4) SECONDS Sodium (136-145) mEq/L Potassium (3.5-5.1) mEq/L Chloride (98-107) mEq/L Carbon Dioxide (21-32) mEq/L Anion Gap (5-15) BUN (7-18) mg/dL Creatinine (0.7-1.3) mg/dL Est Cr Clr Drug Dosing Estimated GFR (MDRD) (>60) mL/min BUN/Creatinine Ratio (14-18) Glucose (70-99) mg/dL Lactic Acid (0.4-2.0) mmol/L Calcium (8.5-10.1) mg/dL Total Bilirubin (0.2-1.0) mg/dL AST (15-37) U/L ALT (16-63) U/L Alkaline Phosphatase (46-116) U/L Troponin I (0.00-0.056) ng/mL C-Reactive Protein (<1.0) mg/dL Total Protein (6.4-8.2) g/dl Albumin (3.4-5.0) g/dl Globulin gm/dL Albumin/Globulin Ratio (1-2) Lipase (73-393) U/L Urine Color Red H (Yellow) Urine Appearance Cloudy H (Clear) Urine pH 8.5 H (5.0-8.0) Ur Specific [place] <=1.005 (1.005-1.030) Urine Protein 3+ H (Negative) Urine Glucose (UA) Trace H (Negative) Urine Ketones 2+ H (Negative) Urine Occult Blood 3+ H (Negative) Urine Nitrite Negative (Negative) Urine Bilirubin 3+ H (Negative) Urine Urobilinogen 4.0 H (0.2-1.0) Ur Leukocyte Esterase 3+ H (Negative) Urine RBC Too numerous to cnt H (0-5) /hpf Urine WBC >100 H (0-5) /hpf Ur Epithelial Cells Not seen (0-5) /hpf Urine Bacteria Few (FEW) /hpf Urine Mucus Not seen (FEW) /hpf SARS-CoV-2 RNA (LETICIA) (NEGATIVE) Meds: Medications Generic Name Dose Route Start Last Admin Trade Name Freq PRN Reason Stop Dose Admin Sodium Chloride 1,000 mls @ 1,000 mls/hr 08/20/21 23:45 08/21/21 00:03 Normal Saline IV 1,000 mls/hr .BOLUS DARRELL Administration Sodium Chloride 1,000 mls @ 150 mls/hr 08/21/21 06:15 Normal Saline IV ASDIRECTED DARRELL Sodium Chloride 10 ml 08/20/21 23:55 08/21/21 00:03 Sodium Chloride 0.9% 10 Ml Syringe FLUSH 10 ml ASDIRECTED PRN Administration Keep Vein Open Discontinued Medications Generic Name Dose Route Start Last Admin Trade Name Freq PRN Reason Stop Dose Admin Sodium Chloride 1,000 mls @ 1,000 mls/hr 08/21/21 01:31 08/21/21 01:49 Normal Saline IV 08/21/21 02:30 1,000 mls/hr ONETIME ONE Administration Potassium Chloride 10 meq/ 100 mls @ 100 mls/hr 08/21/21 02:15 08/21/21 06:54 Premix IV 08/21/21 06:14 100 mls/hr Q1H DARRELL Administration Norepinephrine Bitartrate 4 mg 250 mls @ 7.5 mls/hr 08/21/21 02:45 / Dextrose/Water IV TITRATE DARRELL Protocol 2 MCG/MIN Ceftriaxone Sodium 2 gm/ 100 mls @ 200 mls/hr 08/21/21 03:00 08/21/21 03:12 Sodium Chloride IV 08/21/21 03:29 200 mls/hr ONETIME ONE Administration - Re-Assessments/Exams Free Text/Narrative Re-Assessment/Exam: 08/21/21 03:31 I ordered oxygen, EKG, CXR, labs, IV NS 1L bolus, UA, blood cultures and lactic acid. His EKG shows a sinus tachycardia, RBBB with no acute changes. His CXR shows no infiltrates. His WBC was elevated at 62.27. He has a history of polycythemia rubra vera, but his WBC has never been that high. His Hgb was low at 10.4. His PT was elevated at 13. His PTT was elevated at 33. His K was low at 2.9. I have ordered 40meq IV. His anion gap was elevated at 18.9. His creatinine was elevated at 3. His glucose was elevated at 167. his lactic acid was very elevated at 7. His troponin was elevated at 0.154. His CRP was elevated at 7.2. His lipase was normal. He is COVID 19 negative. I feel he has sepsis from a UTI. He is so dry he is not making urine yet. I ordered a 30ml/kg bolus. I also ordered rocepin 2 grams IV. His BP was in the 60s when he cam in. With the 1st liter of fluid his BP went up into the 80s. With the rest of the bolus did not help much. I called his POA and she still wanted him DNI/DNR but she also wanted comfort care but wanted us to give him some antibiotics. I will continue with the rocephin but I will cancel the norepinephrine drip. I will contact our hospitalist service for admission. 08/21/21 07:08 I called this morning again for a bed and both [facility] are full. I called out hospitalist Dr Rosado and he will admit the patient for comfort care. Departure - Departure Time of Disposition: 07:10 Disposition: Admitted As Inpatient 67 Condition: Serious Clinical Impression: UTI, Urinary tract infectious disease, Septic shock Sepsis Qualifiers: Sepsis type: sepsis due to unspecified organism Sepsis acute organ dysfunction status: unspecified Qualified Code(s): A41.9 - Sepsis, unspecified organism Hypotension Qualifiers: Hypotension type: other hypotension type Qualified Code(s): I95.89 - Other hypotension Renal failure Qualifiers: Renal failure chronicity: acute Acute renal failure type: unspecified Qualified Code(s): N17.9 - Acute kidney failure, unspecified - Discharge Information Referrals: Baudilio Warren MD [Primary Care Provider] - Forms: ED Department Discharge Sepsis Event Note (ED) - Evaluation Sepsis Screening Result: Severe Sepsis Risk - Focused Exam Vital Signs: Vital Signs Temp Pulse Resp BP Pulse Ox 08/21/21 03:31 82 18 84/75 L 98 08/21/21 03:00 102 H 18 70/49 L 97 08/21/21 02:32 99 20 85/52 L 100 08/21/21 00:23 106 H 20 73/61 L 98 08/20/21 23:21 98 F 120 H 16 68/40 L 98 - My Orders Last 24 Hours: My Active Orders 08/20/21 23:45 Sodium Chloride 0.9% [Normal Saline] 1,000 ml IV .BOLUS 08/20/21 23:55 Cardiac Monitoring [RC] . DIRECTED Peripheral IV Care [RC] . DIRECTED Sodium Chloride 0.9% [Saline Flush] 10 ml FLUSH ASDIRECTED PRN Peripheral IV Insertion Adult [OM.PC] Stat 08/20/21 23:57 Chest 1V Frontal [CR] Stat BLOOD CULTURE [MREF] Stat BLOOD CULTURE [MREF] Stat Blood Culture x2 Reflex Set [OM.PC] Stat 08/21/21 01:41 Urinary Catheter Assessment [RC] ASDIRECTED 08/21/21 01:45 Insert Mcneal Catheter [Insert Urinary Catheter] [OM.PC] Q24H 08/21/21 03:38 Comfort Measures [OM.PC] Routine 08/21/21 06:15 Sodium Chloride 0.9% [Normal Saline] 1,000 ml IV ASDIRECTED - Assessment/Plan Last 24 Hours: My Active Orders 08/20/21 23:45 Sodium Chloride 0.9% [Normal Saline] 1,000 ml IV .BOLUS 08/20/21 23:55 Cardiac Monitoring [RC] . DIRECTED Peripheral IV Care [RC] . DIRECTED Sodium Chloride 0.9% [Saline Flush] 10 ml FLUSH ASDIRECTED PRN Peripheral IV Insertion Adult [OM.PC] Stat 08/20/21 23:57 Chest 1V Frontal [CR] Stat BLOOD CULTURE [MREF] Stat BLOOD CULTURE [MREF] Stat Blood Culture x2 Reflex Set [OM.PC] Stat 08/21/21 01:41 Urinary Catheter Assessment [RC] ASDIRECTED 08/21/21 01:45 Insert Mcneal Catheter [Insert Urinary Catheter] [OM.PC] Q24H 08/21/21 03:38 Comfort Measures [OM.PC] Routine 08/21/21 06:15 Sodium Chloride 0.9% [Normal Saline] 1,000 ml IV ASDIRECTED
[2021-08-21] MEDS: Sodium Chloride 0.9% 1,000 ML IV SCH ×2 (06:50→16:22)
--- NOTE | 2021-08-21 08:29 | CR ---
Chest: Frontal view of the chest was obtained. Comparison: Prior chest x-ray of 03/16/21. Heart size is normal. Tortuous thoracic aorta is seen. Lungs are clear with no acute parenchymal change. Scattered degenerative change is noted within the spine as well as scoliosis. Impression: 1. Nothing acute is seen on frontal chest x-ray. 2. Other incidental findings as noted above. Diagnostic code #2
[2021-08-21] MEDS ORDERED: LORazepam 2 MG/ML SDV IVPUSH PRN (20:58)
[2021-08-21] MEDS ORDERED: Morphine 2 MG/ML SYRINGE IVPUSH PRN (20:58)
[2021-08-21] MEDS ORDERED: cefTRIAXone 1 GM in Sodium Chloride 0.9% 100 ML IV SCH (21:00)
[2021-08-21] MEDS ORDERED: Scopolamine 1.5 MG Transdermal Patch TRDERM PRN (21:00)
[2021-08-21] MEDS ORDERED: Sodium Chloride 0.9% 1,000 ML IV SCH (21:00)
[2021-08-22] MEDS ORDERED: Albuterol/Ipratropium 3.0-0.5 MG/3 ML Neb Soln NEB PRN (13:32)
[2021-08-22] MEDS ORDERED: Morphine 2 MG/ML SYRINGE IVPUSH PRN (13:36)
[2021-08-22] MEDS ORDERED: LORazepam 2 MG/ML SDV IVPUSH PRN (14:03)
--- NOTE | 2021-08-22 17:31 | PCM.HP.2 ---
H&P History of Present Illness - General Date of Service: 08/21/21 Admit Problem/Dx: Admission Diagnosis/Problem Admission Diagnosis/Problem Urosepsis Source of Information: Other (chart) - History of Present Illness Initial Comments - Free Text/Narative: Patient is a 75-year-old male with a history of dementia who was brought to the ER from facility due to AMS. The patient was found not to eat and drink since yesterday. Patient is demented and does not answer any questions. A medical history is unable to obtained. Patient had a left femoral fracture which was not fixed. In the ER, patient was found to have tachycardia, tachypnea and low hypotension which responded to IV fluid resuscitation. Urinalysis compatible with UTI. He has been on comfort care only since August 09, 2021. He was admitted to the hospital to continue comfort care. Ceftriaxone was initiated in the ER - Related Data Allergies/Adverse Reactions: Allergies Allergy/AdvReac Type Severity Reaction Status Date / Time No Known Allergies Allergy Verified 08/21/21 16:47 Home Medications: Home Meds Acetaminophen 650 mg PO Q4HR PRN 01/06/21 [History] Ondansetron [Zofran] 4 mg PO Q6H PRN 01/06/21 [History] haloperidoL [Haldol] 5 mg PO Q8H PRN 03/16/21 [History] fentaNYL [Duragesic] 25 mcg TRDERM ASDIRECTED 08/21/21 [History] Past Medical History HEENT History: Reports: Impaired Vision Other HEENT History: chronic rhinitis Cardiovascular History: Reports: Afib, Blood Clots/VTE/DVT, CAD, Heart Failure, High Cholesterol, Hypertension, [place], Other (See Below) Other Cardiovascular History: intracardiac thrombosis; half-way anticoagulation, hyperkalemia Respiratory History: Reports: Other (See Below) Other Respiratory History: pleural effusions Gastrointestinal History: Reports: Chronic Constipation Genitourinary History: Reports: BPH, Chronic Renal Insuffiency, Neurogenic Bladder, Renal Calculus, Retention, Urinary, UTI, Recurrent, Other (See Below) Other Genitourinary History: chronic indwelling catheter Musculoskeletal History: Reports: Back Pain, Chronic, Fracture, Osteoporosis, Other (See Below) Other Musculoskeletal History: L femur fx (not a candidate for surgery) Neurological History: Reports: Other (See Below) Other Neuro History: vascular dementia with behavioral disturbance; dyskinesia Psychiatric History: Reports: Dementia, Depression, Psychosis, Schizophrenia, Other (See Below) Other Psychiatric History: insomnia Endocrine/Metabolic History: Reports: Diabetes, Type II, Hyperparathyroidism, Other (See Below) Other Endocrine/Metabolic History: hyperkalemia; hypercalcemia Hematologic History: Reports: Anticoagulation Therapy, Polycythemia - Past Surgical History Male Surgical History: Reports: Renal Calculus Social & Family History - Family History Family Medical History: Unobtainable (Due to dementia) - Tobacco Use Tobacco Use Status *Q: Unknown Ever Used Tobacco Second Hand Smoke Exposure: No - Caffeine Use Caffeine Use: Reports: Coffee - Recreational Drug Use Recreational Drug Use: No - Living Situation & Occupation Living situation: Reports: Extended Care Facility (Currently a resident of [facility] in [place].) Occupation: Retired H&P Review of Systems - Review of Systems: Review Of Systems: Unable To Obtain (Due to dementia) Reason Not Obtained: Dementia Exam - Exam Exam: See Below - Vital Signs Vital Signs: Last Vital Signs Temp 36.6 C 08/22/21 09:28 Pulse 87 08/22/21 09:28 Resp 12 08/22/21 09:28 BP 102/45 L 08/22/21 09:28 Pulse Ox 91 L 08/22/21 09:28 Weight: 51.437 kg - Exam General: Other (Awake, noncooperative, does not answer any questions) HEENT: Conjunctiva Clear, Pupils Equal, Pupils Reactive Neck: Trachea Midline. No: Lymphadenopathy, JVD Lungs: Clear to Auscultation, Normal Respiratory Effort Cardiovascular: Regular Rate, Regular Rhythm GI/Abdominal Exam: Normal Bowel Sounds, Soft, No Organomegaly, No Distention (Male) Exam: Other (Daniels in place) Extremities: No: Non-Tender (Seems to have tenderness over the left thigh) Skin: Warm, Dry, Intact Neurological: Other (Unable to complete due to dementia) Neuro Extensive - Motor, Sensory, Reflexes: Other (Unable to complete due to dementia) - Patient Data Lab Results Last 24 hrs: Laboratory Results - last 24 hr 08/21/21 Range/Units 16:15 MRSA (PCR) Negative Result Diagrams: 08/21/21 01:00 08/21/21 01:00 Yan Results Last 24 hrs: Microbiology 08/21/21 01:40 Blood Culture - Preliminary Blood - Venous - Lab Draw 08/21/21 01:00 Blood Culture - Preliminary Blood - Venous Sepsis Event Note - Evaluation Sepsis Screening Result: No Definite Risk - Focused Exam Vital Signs: Vital Signs Temp Pulse Resp BP Pulse Ox 08/22/21 09:28 36.6 C 87 12 102/45 L 91 L 08/22/21 06:46 125 H 100 Problem List Initiated/Reviewed/Updated: Yes Orders Last 24hrs: Active Orders 24 hr Category Date Time Status Bedrest [RC] DAILY Care 08/21/21 17:06 Active Insert Daniels Catheter [Insert Urinary Catheter] [OM.PC] Care 08/22/21 13:45 Ordered Q24H Oxygen Therapy [RC] ASDIRECTED Care 08/21/21 19:34 Active Urinary Catheter Assessment [RC] ASDIRECTED Care 08/22/21 13:35 Active VTE/DVT Education [RC] PER UNIT ROUTINE Care 08/22/21 13:32 Active Vital Signs [RC] DAILY Care 08/22/21 13:32 Active National Dysphagia Diet [DIET] Diet 08/22/21 Breakfast Active Albuterol/Ipratropium [DuoNeb 3.0-0.5 MG/3 ML] Med 08/22/21 13:32 Active 3 ml NEB Q4H PRN LORazepam [Ativan] Med 08/22/21 14:03 Active 0.5 mg IVPUSH Q2H PRN Morphine Med 08/22/21 13:36 Active 2 mg IVPUSH Q2H PRN Remove Patch Med 08/24/21 21:15 Active 1 ea TRDERM Q72H Scopolamine [Transderm-Scop] Med 08/21/21 21:00 Active 1.5 mg TRDERM Q72H PRN Renew/Continue Urinary Catheter [OM.PC] Routine Oth 08/21/21 16:54 Ordered Renew/Continue Urinary Catheter [OM.PC] Routine Oth 08/22/21 10:39 Ordered Resuscitation Status Routine Resus Stat 08/21/21 16:45 Ordered Medication Orders Albuterol/Ipratropium (Albuterol/Ipratropium 3.0-0.5 Mg/3 Ml Neb Soln) 3 ml NEB Q4H PRN PRN Reason: Shortness Of Breath/wheezing Lorazepam (Lorazepam 2 Mg/Ml Sdv) 0.5 mg IVPUSH Q2H PRN PRN Reason: Agitation Miscellaneous Information (Remove Scopolamine Patch) 1 ea TRDERM Q72H [facility] Morphine Sulfate (Morphine 2 Mg/Ml Syringe) 2 mg IVPUSH Q2H PRN PRN Reason: Pain Scopolamine (Scopolamine 1.5 Mg Transdermal Patch) 1.5 mg TRDERM Q72H PRN PRN Reason: Nausea/Vomiting Sodium Chloride (Sodium Chloride 0.9% 10 Ml Syringe) 10 ml FLUSH ASDIRECTED PRN PRN Reason: Keep Vein Open Last Admin: 08/21/21 00:03 Dose: 10 ml Documented by: PAT Assessment/Plan Comment:: Assessment: Patient is a 75-year-old male with a history of dementia who was brought to the ER from facility due to AMS. Assessment: Sepsis 2nd to UTI Hypotension UTI AMS Dementia Left femur fracture Anemia Hypokalemia BETTY or BETTY on CKD, creatinine 0.8 on 03/19/2021 Plan: Patient has been on comfort care since August 09, 2021 Discussed with his guardian who would like to continue comfort care only including pain medication, medications for nausea, vomiting, anxiety and secretion, antibiotics and IV fluids as well. No labs. No imaging tests. Morphine Zofran Ativan Scopolamine - Mortality Measure Prognosis:: Poor
--- NOTE | 2021-08-22 17:47 | PCM.PN ---
- General Info Date of Service: 08/22/21 Admission Dx/Problem (Free Text): Admission Diagnosis/Problem Admission Diagnosis/Problem Urosepsis Subjective Update: Patient is a 75-year-old male with a history of dementia who was brought to the ER from facility due to AMS. Patient does not answer any questions No overnight events Updated to guardian today and also discussed with his guardian about the treatment, who called me back later that he would like to stop antibiotics and IV fluid. Continue standard to comfort care only. - Review of Systems Systems Review Comment:: ROS unable to complete due to dementia - Patient Data Vitals - Most Recent: Last Vital Signs Temp 36.6 C 08/22/21 09:28 Pulse 87 08/22/21 09:28 Resp 12 08/22/21 09:28 BP 102/45 L 08/22/21 09:28 Pulse Ox 91 L 08/22/21 09:28 Weight - Most Recent: 51.437 kg I&O - Last 24 Hours: Intake & Output 08/22/21 08/22/21 08/22/21 06:59 14:59 22:59 Intake Total 1360 30 1200 Output Total 350 425 Balance 1010 30 775 Lab Results Last 24 Hours: Laboratory Results - last 24 hr 08/21/21 Range/Units 16:15 MRSA (PCR) Negative Yan Results Last 24 Hours: Microbiology 08/21/21 01:40 Blood Culture - Preliminary Blood - Venous - Lab Draw 08/21/21 01:00 Blood Culture - Preliminary Blood - Venous Med Orders - Current: Current Medications Albuterol/Ipratropium (Albuterol/Ipratropium 3.0-0.5 Mg/3 Ml Neb Soln) 3 ml NEB Q4H PRN PRN Reason: Shortness Of Breath/wheezing Lorazepam (Lorazepam 2 Mg/Ml Sdv) 0.5 mg IVPUSH Q2H PRN PRN Reason: Agitation Miscellaneous Information (Remove Scopolamine Patch) 1 ea TRDERM Q72H [facility] Morphine Sulfate (Morphine 2 Mg/Ml Syringe) 2 mg IVPUSH Q2H PRN PRN Reason: Pain Scopolamine (Scopolamine 1.5 Mg Transdermal Patch) 1.5 mg TRDERM Q72H PRN PRN Reason: Nausea/Vomiting Sodium Chloride (Sodium Chloride 0.9% 10 Ml Syringe) 10 ml FLUSH ASDIRECTED PRN PRN Reason: Keep Vein Open Last Admin: 08/21/21 00:03 Dose: 10 ml Documented by: Discontinued Medications Sodium Chloride (Normal Saline) 1,000 mls @ 1,000 mls/hr IV .BOLUS [facility] Last Admin: 08/21/21 00:03 Dose: 1,000 mls/hr Documented by: Sodium Chloride (Normal Saline) 1,000 mls @ 1,000 mls/hr IV ONETIME ONE Stop: 08/21/21 02:30 Last Admin: 08/21/21 01:49 Dose: 1,000 mls/hr Documented by: Potassium Chloride 10 meq/ (Premix) 100 mls @ 100 mls/hr IV Q1H [facility] Stop: 08/21/21 06:14 Last Admin: 08/21/21 06:54 Dose: 100 mls/hr Documented by: Norepinephrine Bitartrate 4 mg (/ Dextrose/Water) 250 mls @ 7.5 mls/hr IV TITRATE [facility]; Protocol Ceftriaxone Sodium 2 gm/ (Sodium Chloride) 100 mls @ 200 mls/hr IV ONETIME ONE Stop: 08/21/21 03:29 Last Admin: 08/21/21 03:12 Dose: 200 mls/hr Documented by: Sodium Chloride (Normal Saline) 1,000 mls @ 150 mls/hr IV ASDIRECTED [facility] Last Admin: 08/21/21 16:22 Dose: 150 mls/hr Documented by: Sodium Chloride (Normal Saline) 1,000 mls @ 75 mls/hr IV ASDIRECTED [facility] Last Admin: 08/22/21 06:19 Dose: 75 mls/hr Documented by: Ceftriaxone Sodium 1 gm/ (Sodium Chloride) 100 mls @ 200 mls/hr IV Q24H [facility] Last Admin: 08/21/21 21:39 Dose: 200 mls/hr Documented by: Lorazepam (Lorazepam 2 Mg/Ml Sdv) 0.5 mg IVPUSH Q4H PRN PRN Reason: Agitation Last Admin: 08/22/21 04:24 Dose: 0.5 mg Documented by: Miscellaneous Information (Remove Patch) 1 ea TRDERM ONETIME ONE Stop: 08/22/21 16:31 Last Admin: 08/22/21 16:27 Dose: 1 ea Documented by: Morphine Sulfate (Morphine 2 Mg/Ml Syringe) 2 mg IVPUSH Q4H PRN PRN Reason: Pain (severe 7-10) - Exam Urinary Catheter Total Time: 1Days 16Hours Physical Findings Comments:: General: Other (Awake, noncooperative, does not answer any questions) HEENT: Conjunctiva Clear, Pupils Equal, Pupils Reactive Neck: Trachea Midline. No: Lymphadenopathy, JVD Lungs: Clear to Auscultation, Normal Respiratory Effort Cardiovascular: Regular Rate, Regular Rhythm GI/Abdominal Exam: Normal Bowel Sounds, Soft, No Organomegaly, No Distention (Male) Exam: Other (Daniels in place) Extremities: No: Non-Tender (Seems to have tenderness over the left thigh) Skin: Warm, Dry, Intact Neurological: Other (Unable to complete due to dementia) Neuro Extensive - Motor, Sensory, Reflexes: Other (Unable to complete due to dementia) - Patient Data Lab Results Last 24 hrs: Laboratory Results - last 24 hr 08/21/21 Range/Units 16:15 MRSA (PCR) Negative Result Diagrams: 08/21/21 01:00 08/21/21 01:00 Yan Results Last 24 hrs: Microbiology 08/21/21 01:40 Blood Culture - Preliminary Blood - Venous - Lab Draw 08/21/21 01:00 Blood Culture - Preliminary Blood - Venous Sepsis Event Note - Evaluation Sepsis Screening Result: No Definite Risk - Focused Exam Vital Signs: Vital Signs Temp Pulse Resp BP Pulse Ox 08/22/21 09:28 36.6 C 87 12 102/45 L 91 L 08/22/21 06:46 125 H 100 - Problem List Review Problem List Initiated/Reviewed/Updated: Yes - My Orders Last 24 Hours: My Active Orders 08/21/21 16:45 Resuscitation Status Routine 08/21/21 16:54 Renew/Continue Urinary Catheter [OM.PC] Routine 08/21/21 17:06 Bedrest [RC] DAILY 08/21/21 19:34 Oxygen Therapy [RC] ASDIRECTED 08/21/21 21:00 Scopolamine [Transderm-Scop] 1.5 mg TRDERM Q72H PRN 08/22/21 Breakfast National Dysphagia Diet [DIET] 08/22/21 10:39 Renew/Continue Urinary Catheter [OM.PC] Routine 08/22/21 13:32 VTE/DVT Education [RC] PER UNIT ROUTINE Vital Signs [RC] DAILY Albuterol/Ipratropium [DuoNeb 3.0-0.5 MG/3 ML] 3 ml NEB Q4H PRN 08/22/21 13:35 Urinary Catheter Assessment [RC] ASDIRECTED 08/22/21 13:36 Morphine 2 mg IVPUSH Q2H PRN 08/22/21 13:45 Insert Daniels Catheter [Insert Urinary Catheter] [OM.PC] Q24H 08/22/21 14:03 LORazepam [Ativan] 0.5 mg IVPUSH Q2H PRN 08/24/21 21:15 Remove Patch 1 ea TRDERM Q72H - Plan Plan:: Assessment: Patient is a 75-year-old male with a history of dementia who was brought to the ER from facility due to AMS. Assessment: Sepsis 2nd to UTI Hypotension UTI AMS Dementia Left femur fracture Anemia Hypokalemia BETTY or BETTY on CKD, creatinine 0.8 on 03/19/2021 Plan: Patient has been on comfort care since August 09, 2021 Discussed with his guardian who would like to continue comfort care only including pain medication, medications for nausea, vomiting, anxiety and sec retion. Guardian would like to stop antibiotics and IV fluids. No labs. No imaging tests. Morphine Zofran Ativan Scopolamine
--- NOTE | 2021-08-23 13:33 | PCM.DCSUM1 ---
Discharge Summary - Hospital Course Free Text/Narrative:: Patient is a 75-year-old male with a history of dementia who was brought to the ER from facility due to AMS. Assessment: Sepsis 2nd to UTI Hypotension UTI AMS Dementia Left femur fracture Anemia Hypokalemia BETTY or BETTY on CKD, creatinine 0.8 on 03/19/2021 Plan: Patient has been on comfort care since August 09, 2021 Patient will discharge to facility to continue comfort care. As a poor guarding, antibiotics and IV fluids were discontinued yesterday. No labs. No imaging tests. Morphine, Ativan and Scopolamine were prescribed. Continue home Zofran. Follow with PCP as needed. Diagnosis: Stroke: No - Discharge Data Discharge Date: 08/23/21 Discharge Disposition: DC/Tfer to SNF 03 Condition: Undetermined - Referral to Home Health Primary Care Physician: Baudilio Warren MD - Patient Summary/Data Recommended Follow-up Testing/Procedures: Follow with PCP as needed - Discharge Plan *PRESCRIPTION DRUG MONITORING PROGRAM REVIEWED*: Not Applicable *COPY OF PRESCRIPTION DRUG MONITORING REPORT IN PATIENT HOANG: Not Applicable Prescriptions/Med Rec: LORazepam [Ativan] 1 mg PO Q6H PRN #10 tablet PRN Reason: Anxiety Morphine 15 mg PO Q4H PRN #15 tab PRN Reason: Pain Scopolamine [Transderm-Scop] 1 patch TD Q3D PRN #3 patch PRN Reason: Other Home Medications: Home Meds Ondansetron [Zofran] 4 mg PO Q6H PRN 01/06/21 [History] LORazepam [Ativan] 1 mg PO Q6H PRN #10 tablet 08/23/21 [Rx] Morphine 15 mg PO Q4H PRN #15 tab 08/23/21 [Rx] Scopolamine [Transderm-Scop] 1 patch TD Q3D PRN #3 patch 08/23/21 [Rx] Patient Handouts: Urosepsis, Adult, Living With Heart Failure, Sepsis, Self Care, Adult Forms: ED Department Discharge Referrals: Baudilio Warren MD [Primary Care Provider] - (Follow up with provider as needed.) - Discharge Summary/Plan Comment DC Time >30 min.: Yes Total # of Minutes for Discharge Time: 65mins - General Info Date of Service: 08/23/21 Admission Dx/Problem (Free Text: Admission Diagnosis/Problem Admission Diagnosis/Problem Urosepsis Subjective Update: Patient is a 75-year-old male with a history of dementia who was brought to the ER from facility due to AMS. Patient does not answer any questions No overnight events Continue standard to comfort care only. - Review of Systems Systems Review Comment: Unable to obtain due to AMS - Patient Data Vitals - Most Recent: Last Vital Signs Temp 36.6 C 08/22/21 09:28 Pulse 92 08/22/21 20:38 Resp 12 08/22/21 09:28 BP 133/115 H 08/22/21 20:38 Pulse Ox 92 L 08/22/21 20:38 Weight - Most Recent: 51.982 kg I&O - Last 24 hours: Intake & Output 08/22/21 08/23/21 08/23/21 22:59 06:59 14:59 Intake Total 1440 600 Output Total 425 800 Balance 1015 -200 Lab Results - Last 24 hrs: Laboratory Results - last 24 hr 08/23/21 Range/Units 11:51 SARS-CoV-2 RNA (LETICIA) Negative (NEGATIVE) DAVIN Results - Last 24 hrs: Microbiology 08/21/21 01:40 Blood Culture - Preliminary Blood - Venous - Lab Draw 08/21/21 01:00 Blood Culture - Preliminary Blood - Venous Med Orders - Current: Current Medications Albuterol/Ipratropium (Albuterol/Ipratropium 3.0-0.5 Mg/3 Ml Neb Soln) 3 ml NEB Q4H PRN PRN Reason: Shortness Of Breath/wheezing Lorazepam (Lorazepam 2 Mg/Ml Sdv) 0.5 mg IVPUSH Q2H PRN PRN Reason: Agitation Miscellaneous Information (Remove Scopolamine Patch) 1 ea TRDERM Q72H [facility] Morphine Sulfate (Morphine 2 Mg/Ml Syringe) 2 mg IVPUSH Q2H PRN PRN Reason: Pain Last Admin: 08/23/21 09:41 Dose: 2 mg Documented by: Scopolamine (Scopolamine 1.5 Mg Transdermal Patch) 1.5 mg TRDERM Q72H PRN PRN Reason: Nausea/Vomiting Sodium Chloride (Sodium Chloride 0.9% 10 Ml Syringe) 10 ml FLUSH ASDIRECTED PRN PRN Reason: Keep Vein Open Last Admin: 08/21/21 00:03 Dose: 10 ml Documented by: Discontinued Medications Sodium Chloride (Normal Saline) 1,000 mls @ 1,000 mls/hr IV .BOLUS [facility] Last Admin: 08/21/21 00:03 Dose: 1,000 mls/hr Documented by: Sodium Chloride (Normal Saline) 1,000 mls @ 1,000 mls/hr IV ONETIME ONE Stop: 08/21/21 02:30 Last Admin: 08/21/21 01:49 Dose: 1,000 mls/hr Documented by: Potassium Chloride 10 meq/ (Premix) 100 mls @ 100 mls/hr IV Q1H [facility] Stop: 08/21/21 06:14 Last Admin: 08/21/21 06:54 Dose: 100 mls/hr Documented by: Norepinephrine Bitartrate 4 mg (/ Dextrose/Water) 250 mls @ 7.5 mls/hr IV TITRATE [facility]; Protocol Ceftriaxone Sodium 2 gm/ (Sodium Chloride) 100 mls @ 200 mls/hr IV ONETIME ONE Stop: 08/21/21 03:29 Last Admin: 08/21/21 03:12 Dose: 200 mls/hr Documented by: Sodium Chloride (Normal Saline) 1,000 mls @ 150 mls/hr IV ASDIRECTED [facility] Last Admin: 08/21/21 16:22 Dose: 150 mls/hr Documented by: Sodium Chloride (Normal Saline) 1,000 mls @ 75 mls/hr IV ASDIRECTED [facility] Last Admin: 08/22/21 06:19 Dose: 75 mls/hr Documented by: Ceftriaxone Sodium 1 gm/ (Sodium Chloride) 100 mls @ 200 mls/hr IV Q24H [facility] Last Admin: 08/21/21 21:39 Dose: 200 mls/hr Documented by: Lorazepam (Lorazepam 2 Mg/Ml Sdv) 0.5 mg IVPUSH Q4H PRN PRN Reason: Agitation Last Admin: 08/22/21 04:24 Dose: 0.5 mg Documented by: Miscellaneous Information (Remove Patch) 1 ea TRDERM ONETIME ONE Stop: 08/22/21 16:31 Last Admin: 08/22/21 16:27 Dose: 1 ea Documented by: Morphine Sulfate (Morphine 2 Mg/Ml Syringe) 2 mg IVPUSH Q4H PRN PRN Reason: Pain (severe 7-10) - Exam Physical Findings Comments:: General: Other (Awake, noncooperative, does not answer any questions) HEENT: Conjunctiva Clear, Pupils Equal, Pupils Reactive Neck: Trachea Midline. No: Lymphadenopathy, JVD Lungs: Clear to Auscultation, Normal Respiratory Effort Cardiovascular: Regular Rate, Regular Rhythm GI/Abdominal Exam: Normal Bowel Sounds, Soft, No Organomegaly, No Distention (Male) Exam: Other (Daniels in place) Extremities: No: Non-Tender (Seems to have tenderness over the left thigh) Skin: Warm, Dry, Intact Neurological: Other (Unable to complete due to dementia) Neuro Extensive - Motor, Sensory, Reflexes: Other (Unable to complete due to dementia)
== END 2021-08-23 14:30 | DRG 872 ==
LOC: JD.ED 23:20 → JD.MS 08-21 14:59
PROVIDERS: ADMIT Internal Medicine; ATTEND Internal Medicine
DX: A41.9 Sepsis, unspecified organism (principal); R65.21 Severe sepsis with septic shock; N17.9 Acute kidney failure, unspecified; I13.0 Hypertensive heart and chronic kidney disease with heart failure and stage 1 through stage 4 chronic kidney disease, or unspecified chronic kidney disease; N39.0 Urinary tract infection, site not specified; F01.51 Vascular dementia, unspecified severity, with behavioral disturbance; N18.9 Chronic kidney disease, unspecified; D63.1 Anemia in chronic kidney disease; E87.6 Hypokalemia; Z51.5 Encounter for palliative care; H54.7 Unspecified visual loss; Z66 Do not resuscitate; Z20.822 Contact with and (suspected) exposure to COVID-19; J31.0 Chronic rhinitis; I48.91 Unspecified atrial fibrillation; N31.9 Neuromuscular dysfunction of bladder, unspecified; R33.9 Retention of urine, unspecified; I25.10 Atherosclerotic heart disease of native coronary artery without angina pectoris; I50.9 Heart failure, unspecified; E78.00 Pure hypercholesterolemia, unspecified; K59.09 Other constipation; N40.1 Benign prostatic hyperplasia with lower urinary tract symptoms; E11.9 Type 2 diabetes mellitus without complications; G89.29 Other chronic pain; M54.9 Dorsalgia, unspecified; E21.3 Hyperparathyroidism, unspecified; R33.8 Other retention of urine; M81.0 Age-related osteoporosis without current pathological fracture; F32.9 Major depressive disorder, single episode, unspecified; E11.22 Type 2 diabetes mellitus with diabetic chronic kidney disease; Z86.718 Personal history of other venous thrombosis and embolism; Z79.01 Long term (current) use of anticoagulants; I25.2 Old myocardial infarction; Z93.6 Other artificial openings of urinary tract status; Z79.899 Other long term (current) drug therapy
CPT/HCPCS: 36415; 51702; 71045; 80053; 81001; 83605 ×2; 83690; 84484; 85025; 85610; 85730; 86140; 87040 ×2; 93005; 96365; 96366; 96368; 99285; J0696; J3480 ×4; J7030 ×3; U0002; 87641; J2060; J2270